=== PATIENT | female | born 1985 | race Caucasian/White ===

== ENCOUNTER → 2020-11-01 15:45 | Outpatient (BNVA) | payer OTHER, SELFPAY | PROVIDERS: PCP Pediatrics; Referring Provider Pediatrics; Visit Provider Obstetrics & Gynecology ==

== ENCOUNTER 2021-09-24 13:04 | Outpatient (REF) | payer OTHER, SELFPAY ==
[2021-09-24 14:27] LABS: Binax Internal Control QC Valid; Binax Lot number: 9864; Binax Now Covid-19 Ag Positive (Negative)
== END 2021-09-24 13:05 | disposition home or self-care (01) ==
LOC: HO.LAB 13:04
PROVIDERS: Visit Provider Internal Medicine
DX: Z20.822 Contact with and (suspected) exposure to COVID-19 (principal)
CPT/HCPCS: 36415; C9803

== ENCOUNTER → 2022-02-16 13:33 | Outpatient (BNVA) | payer OTHER, SELFPAY | PROVIDERS: Visit Provider Obstetrics & Gynecology | DX: Z01.419 Encounter for gynecological examination (general) (routine) without abnormal findings (principal) ==

== ENCOUNTER 2022-03-23 12:56 | Outpatient (REF) | payer OTHER, SELFPAY ==
--- NOTE | ~2022-03-23 | US_ITS ---
EXAMINATION: US PELVIS CLINICAL INFORMATION: Adnexal fullness. COMPARISON: Ultrasound 10/29/2019. TECHNIQUE: Ultrasound of the pelvis is performed using both transabdominal and transvaginal transducers along with Doppler. Transvaginal imaging is performed due to inadequate visualization transabdominally. FINDINGS: UTERUS: The uterus is anteverted, anteflexed and measures 8.1 cm in length, 3.2 cm in AP and 3.7 cm in transverse dimension. The double wall endometrial thickness is 0.4 cm. The uterus is smooth in contour and has normal myometrial echogenicity. There is solitary hyperechoic lesion in the fundus measuring 0.9 x 0.9 x 1.0 cm. Previously it measured 0.8 x 0.6 x 0.7 cm. There is minimal fluid in the cervix. ADNEXA: Both ovaries are visualized. There is normal color flow to the adnexa. There is no ovarian torsion. There is no pelvic ascites or fluid collection. Right ovary measures 2.1 x 1.1 x 2.4 cm and volume 2.9 mL. Left ovary measures 1.9 x 1.0 x 1.6 cm and volume 1.6 mL. US/US pelvic and transvaginal IMPRESSION: Solitary small fundal lesion likely fibroid, new since the last exam. The ovaries are unremarkable. There is minimal fluid in the cervix.
== END 2022-03-23 12:57 | disposition home or self-care (01) ==
LOC: HO.US 12:56
PROVIDERS: Visit Provider Obstetrics & Gynecology
DX: N94.9 Unspecified condition associated with female genital organs and menstrual cycle (principal)
CPT/HCPCS: 76830; 76856

== ENCOUNTER 2023-04-18 09:51 | Outpatient (REF) | payer OTHER, SELFPAY ==
[2023-04-18 18:07] LABS: CT PCR NOT DETECTED (Not Detect.); NG PCR NOT DETECTED (Not Detect.)
[2023-04-24 04:18] LABS: HPV mRNA E6/E7 rflx Not Detected (Not Detected)
== END 2023-04-18 09:52 | disposition home or self-care (01) ==
LOC: HO.LNP 09:51
PROVIDERS: PCP Pediatrics; Visit Provider Obstetrics & Gynecology
DX: Z01.419 Encounter for gynecological examination (general) (routine) without abnormal findings (principal); Z11.51 Encounter for screening for human papillomavirus (HPV); R10.2 Pelvic and perineal pain; R31.9 Hematuria, unspecified
CPT/HCPCS: 0353U; 81003; 87086; 87147; 87624; 88142

== ENCOUNTER 2023-04-18 09:51 | Outpatient (AMB) | payer OTHER, SELFPAY ==
[2023-04-18 10:11] VITALS: BP 122/74; BMI 31.7
--- NOTE | 2023-04-18 10:11 | A.OFFVIS_ITS ---
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 The patient is complaining of right pelvic pain associated urinary frequency and urgency. 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 Sexual orientation: Straight/Heterosexual Gender identity: Female Female Reproductive History Menstrual Age of Menarche: 11 Duration of menses: 6-7 days Date of last menstrual period: 04/11/23 control method: pills Total pregnancies: 0 Date of last pap smear: 08/28/18 (negative) Review of Systems Const All systems reviewed & are unremarkable except as noted in HPI and below Card Reports as per HPI Resp Reports as per HPI GI Reports as per HPI and Reports no additional complaints Reports as per HPI Physical Exam Vital Signs: Last Vital Signs BP 122/74 04/18/23 10:11 BMI result Body Mass Index 31.7 Const General: cooperative, healthy appearing and comfortable Chest Chest palpation & inspection: normal inspection of the chest and normal palpation of entire chest wall Breast/axilla inspection: normal inspection of the breasts and normal inspection of the axillae Breast/axilla palpation: normal palpation of the breasts, normal palpation of the axillae and no axillary lymphadenopathy Resp Effort & Inspection: normal respiratory effort Auscultation: clear to auscultation bilaterally Percussion: percussion normal Cardio Palpation: normal PMI Rate: regular rate Rhythm: regular rhythm Heart sounds: no murmurs and no rubs Peripheral pulses: Peripheral pulses 2+ throughout GI Inspection: Yes normal to inspection Palpation (GI): Soft to palpation, nontender, no guarding, not rigid and No hepatosplenomegaly present Percussion: Yes normal to percussion Auscultation: normal bowel sounds Rectal Exam - Female: deferred General: Yes bladder normal to palpation External Female Exam: No lesion Speculum Exam - Vagina: normal appearance of the vagina, normal palpation, normal vaginal discharge and not erythematous Speculum Exam - Cervix: normal appearance of the cervix and normal palpation Bimanual exam- vagina & uterus: normal bimanual exam, normal palpation, uterine size normal, bladder normal to palpation, consistency normal and normal palpation Bimanual Exam- Adnexa, other: normal adnexae, no masses and no tenderness Assessment & Plan Assessment & Plan (1) Well woman exam: Code(s): Z01.419 - Encounter for gynecological examination (general) (routine) without abnormal findings Plan: Cotesting done. Counseled the patient about the recommended dietary allowance of 1000 mg of Calcium & 600 IU of vitamin D. The patient was instructed to perform monthly self-breast exams and to schedule an annual exam in a year; All questions answered and the patient verbalized understanding. Instructed the patient to schedule annual exam in a year (2) Pelvic pain: Code(s): R10.2 - Pelvic and perineal pain Plan: Urine dip in the office showed microscopic hematuria and urine test done in the office was negative. GC and chlamydia taken and pelvic ultrasound ordered. Discussed with the patient the differential diagnosis of pelvic pain including but not limited to adnexal, uterine masses, pelvic infections (PID), GI the (Irritable bowel syndrome, diverticulitis, others), musculoskeletal, myofascial pain abdominal wall , adhesions, endometriosis, psychological and others causes. Will check results and treat accordingly. All questions answered, the patient verbalized understanding. Instructed the patient to schedule follow-up appointment in 2 weeks (3) Microscopic hematuria: Code(s): R31.29 - Other microscopic hematuria Plan: Urine dip showed microscopic hematuria, will send urine for culture and repeat urine dip in 2 weeks if persistent microscopic hematuria with a negative urine culture will proceed with CT scan of abdomen and pelvis and referral to Urology for further management. Instructions given the patient to schedule a 2 week follow-up urine dip appointment. All questions answered, the patient verbalized understanding Medications: Refilled levonorgestrel-ethinyl estrad 0.15-0.03 mg Take 1 tablet a day for 28 days Ninety day supply 1 tab PO DAILY 84 tabs 3RF 28 days Coding Level of Care Code Est Pt Prev Care 18-39y(17793) Diagnoses Well woman exam Z01.419 Pelvic pain R10.2 Microscopic hematuria R31.29
== END 2023-04-18 10:46 | disposition home or self-care (01) ==
LOC: HO.HWS 09:51
PROVIDERS: PCP Pediatrics; Visit Provider Obstetrics & Gynecology
DX: Z01.419 Encounter for gynecological examination (general) (routine) without abnormal findings (principal); R10.2 Pelvic and perineal pain; R31.29 Other microscopic hematuria; Z13.9 Encounter for screening, unspecified
CPT/HCPCS: 99395

== ENCOUNTER 2023-05-02 12:37 | Outpatient (REF) | payer OTHER, SELFPAY ==
--- NOTE | ~2023-05-02 | US_ITS ---
EXAMINATION: US PELVIS COMPLETE CLINICAL INFORMATION: Leiomyoma COMPARISON: Pelvic ultrasound 03/23/2022 TECHNIQUE: Transabdominal and transvaginal imaging was performed. FINDINGS: The uterus is of normal size and echogenicity measuring 9.0 x 3.2 x 4.5 cm. The endometrium measures 0.4 cm. Punctate subendometrial calcification possibly vascular in etiology. A 0.6 cm intramural myoma in the anterior right body of the uterus new from prior and a 0.8 cm intramural myoma in the left fundus of the uterus, slightly decreased from prior previously 1 cm. Trace fluid in the endocervical canal. Nabothian cysts in the cervix. Both ovaries are of normal size and echogenicity. The right measures 3.0 x 2.3 x 2.4 cm for a volume of 8.7 mL. The left measures 2.0 x 0.7 x 1.3 cm for a volume of 1.0 mL. There is no pelvic free fluid. US/US pelvic and transvaginal IMPRESSION: 1. Two small intramural myomas measuring up to 0.8 cm, one new from prior and one slightly decreased in size from prior. 2. Trace fluid in the endocervical canal. 3. Unremarkable sonographic appearance of the ovaries.
== END 2023-05-02 12:38 | disposition home or self-care (01) ==
LOC: HO.US 12:37
PROVIDERS: PCP Pediatrics; Visit Provider Obstetrics & Gynecology
DX: D25.9 Leiomyoma of uterus, unspecified (principal)
CPT/HCPCS: 76830; 76856

== ENCOUNTER 2023-05-10 09:48 | Outpatient (AMB) | payer OTHER, SELFPAY ==
[2023-05-10 09:55] VITALS: BP 118/70; BMI 31.7
--- NOTE | 2023-05-10 09:55 | MHC.OFFVIS ---
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 Urine culture grew 50-100 K GBS, the patient was prescribed Keflex. GC/chlamydia were negative The patient is on her menstrual cycle. Pelvic ultrasound showed the following: The uterus is of normal size and echogenicity measuring 9.0 x 3.2 x 4.5 cm. The endometrium measures 0.4 cm. Punctate subendometrial calcification possibly vascular in etiology. A 0.6 cm intramural myoma in the anterior right body of the uterus new from prior and a 0.8 cm intramural myoma in the left fundus of the uterus, slightly decreased from prior previously 1 cm. Trace fluid in the endocervical canal. Nabothian cysts in the cervix. Both ovaries are of normal size and echogenicity. The right measures 3.0 x 2.3 x 2.4 cm for a volume of 8.7 mL. The left measures 2.0 x 0.7 x 1.3 cm for a volume of 1.0 mL. There is no pelvic free fluid. 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 Sexual orientation: Straight/Heterosexual Gender identity: Female Female Reproductive History Menstrual Age of Menarche: 11 Date of last menstrual period: 05/09/23 control method: pills Date of last pap smear: 04/19/23 (negative) Review of Systems Const All systems reviewed & are unremarkable except as noted in HPI and below Reports as per HPI and Reports no additional complaints GI Reports no additional complaints Reports no additional complaints Physical Exam Vital Signs: Last Vital Signs BP 118/70 05/10/23 09:55 BMI result Body Mass Index 31.7 Assessment & Plan Assessment & Plan (1) UTI (urinary tract infection): Code(s): N39.0 - Urinary tract infection, site not specified Plan: The patient is on her menstrual cycle, will order Repeat UA with reflex urine culture. (2) Microscopic hematuria: Code(s): R31.29 - Other microscopic hematuria Plan: If urine culture is negative and microscopic hematuria is persistent will treat accordingly. Instructions given the patient to schedule a follow-up appointment in 2 (3) Uterine myoma: Code(s): D25.9 - Leiomyoma of uterus, unspecified Plan: Discussed with the patient the findings on pelvic ultrasound & the risk of myosarcoma; discussed with the patient the options of treatment including expectant management versus hysterectomy; the pros and cons, risks benefits of each approach were discussed with the patient including the fact that in cases of myosarcoma, surgical treatment can lead to early diagnosis and positively affects the prognosis; after further discussion, the patient decided to proceed with expectant management. Will repeat pelvic ultrasound periodically. Instructions given to patient to call in case any of the following occurs: pressure symptoms, abnormal uterine bleeding, pelvic pain; and to schedule a future office follow-up appointment for reassessment and to order a repeat ultrasound . All questions answered, the patient verbalized understanding and agreed with the plan . Orders: Orders UA CC w/rflx Micro + Cult Today R31.29 - Other microscopic hematuria Coding Level of Care Code Est Pt Level 3 (42591) Diagnoses UTI (urinary tract infection) N39.0 Microscopic hematuria R31.29 Uterine myoma D25.9
== END 2023-05-10 10:11 | disposition home or self-care (01) ==
PROVIDERS: PCP Pediatrics; Visit Provider Obstetrics & Gynecology
DX: N39.0 Urinary tract infection, site not specified (principal); R31.29 Other microscopic hematuria; D25.9 Leiomyoma of uterus, unspecified
CPT/HCPCS: 99213

== ENCOUNTER → 2023-05-10 09:48 | Outpatient (BNVA) | payer OTHER, SELFPAY | PROVIDERS: PCP Pediatrics; Visit Provider Obstetrics & Gynecology ==

== ENCOUNTER 2023-05-18 15:53 | Outpatient (REF) | payer OTHER, SELFPAY ==
[2023-05-18 17:48] LABS: Appearance Urine Cloudy; Color Urine Yellow; Glucose Urine UA Negative (Negative); Leukocyte Esterase Urine Trace (Negative); Nitrite Urine Negative (Negative); Specific Gravity - Urine >= 1.030 (1.005-1.025); UMIC TRIGGER UACC YES; Urine Blood Negative (Negative); Urine Ketones Trace mg/dL (Negative); Urine Protein Negative (Neg-Trace)
[2023-05-18 21:53] LABS: Bacteria Urine 4+ (None Seen); Calcium Oxalate Crystals Urine Present; Hyaline Casts Urine 0-2 /LPF (0-2); UACC Culture Trigger YES
== END 2023-05-18 15:54 | disposition home or self-care (01) ==
LOC: HO.LAB 15:53
PROVIDERS: Visit Provider Obstetrics & Gynecology
DX: N39.0 Urinary tract infection, site not specified (principal); R31.29 Other microscopic hematuria
CPT/HCPCS: 81001; 87086

== ENCOUNTER 2023-06-21 15:40 | Outpatient (REF) | payer OTHER, SELFPAY ==
--- NOTE | ~2023-06-21 | CT_ITS ---
EXAMINATION: CT ABDOMEN AND PELVIS WITHOUT AND WITH CONTRAST CLINICAL INFORMATION: Microscopic hematuria. COMPARISON: CT abdomen and pelvis dated 04/23/2017; report of the abdominal ultrasound dated 02/06/2012. TECHNIQUE: Multidetector volumetric imaging was performed of the abdomen and pelvis before and after the IV administration of 85 mL of Omnipaque 350 intravenous contrast. Sagittal and coronal reformatted images were obtained on the technologist's workstation. This CT examination was performed using dose optimization techniques as appropriate, variously including the following: *Automated exposure control *Adjustment of mA and/or kV according to patient size (this includes techniques or standardized protocols for targeted exams where dose is matched to indication/reason for exam; i.e. extremities or head) *Use of iterative reconstruction technique DLP: 779 mGy-cm FINDINGS: LUNG BASES: There is mild bibasilar dependent hypoaeration. LIVER, GALLBLADDER, AND BILIARY TREE: The liver is normal in size, shape, and attenuation. No focal hepatic lesion or biliary ductal dilatation is present. The gallbladder is surgically absent. PANCREAS: Unremarkable SPLEEN: Unremarkable ADRENAL GLANDS: Unremarkable KIDNEYS AND URETERS: The kidneys are normal in size, shape, and attenuation. No hydronephrosis, hydroureter, or calculi seen. No perinephric stranding. BLADDER: Unremarkable GASTROINTESTINAL TRACT: The small and large bowel are unremarkable. No obstruction, free intraperitoneal air or abscess is seen. There is no focal bowel wall thickening. There is no diverticulosis or diverticulitis. The vermiform appendix is not identified with certainty; however, there is no finding to suggest appendicitis. ABDOMINAL WALL: There is a small to moderate fat-containing umbilical hernia, with neck measuring 1.9 x 1.8 cm (9:282 at 11:59). LYMPH NODES: Normal VASCULAR: Unremarkable PELVIC VISCERA: The uterus is unremarkable. The right ovary contains a 2.4 cm benign simple appearing cyst, with postcontrast Hounsfield value of 8.1 units (8:67). This is a benign finding, which requires no imaging follow-up. OSSEOUS STRUCTURES: Unremarkable CT/CT abdomen pelvis wo/w IV con IMPRESSION: 1. No urinary mass, calculus or obstruction is seen. 2. No bowel obstruction, free intraperitoneal air or abscess is seen. There is no appendicitis or diverticulitis. 3. There is no abdominopelvic mass, ascites or lymphadenopathy. 4. The gallbladder is surgically absent. 5. Osseous structures are unremarkable. Fleischner guidelines were followed.
[2023-06-21] MEDS: iohexoL 350 MG/ML 100 ML INFUS..BTL IV (16:22)
== END 2023-06-21 15:41 | disposition home or self-care (01) ==
LOC: HO.CT 15:40
PROVIDERS: PCP Pediatrics; Visit Provider Obstetrics & Gynecology
DX: R31.29 Other microscopic hematuria (principal)
CPT/HCPCS: 74178; Q9967

== ENCOUNTER 2023-06-27 12:28 | Outpatient (AMB) | payer OTHER, SELFPAY ==
--- NOTE | 2023-06-27 12:47 | A.OFFVIS_ITS ---
Intake Vital Signs 06/27/23 12:49 Height 5 ft 3 in Weight 178 lb 9.191 oz BMI 31.6 BP 110/62 Intake Visit Reasons: Lab Follow up/CT Allergies From PERCOCET Adverse Reaction (Intermediate, Uncoded 05/10/23 09:56) VOMITING HPI HPI Comments History of Present Illness Details Presenting for follow-up microscopic hematuria. Repeat urinalysis was positive for 6-10 RBCs, urine culture was negative. CT scan of abdomen pelvis was done and showed the following: IMPRESSION: 1. No urinary mass, calculus or obstruct ion is seen. 2. No bowel obstruction, free intraperit gimenez air or abscess is seen. There is no appendicitis or diverticulitis. 3. There is no abdominopelvic mass, asci kajal or lymphadenopathy. 4. The gallbladder is surgically absent. 5. Osseous structures are unremarkable. 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 Sexual orientation: Straight/Heterosexual Gender identity: Female Female Reproductive History Menstrual Age of Menarche: 11 Date of last menstrual period: 06/09/23 Review of Systems Const All systems reviewed & are unremarkable except as noted in HPI and below Reports as per HPI and Reports no additional complaints GI Reports no additional complaints Reports no additional complaints Physical Exam Vital Signs: Last Vital Signs BP 110/62 06/27/23 12:49 BMI result Body Mass Index 31.6 Assessment & Plan Assessment & Plan (1) Microscopic hematuria: Code(s): R31.29 - Other microscopic hematuria Plan: Discussed with the patient the results of her microscopic hematuria, with negative urine culture and no pathological finding on CT scan of abdomen pelvis. Urology referral scheduled.. All questions answered, the patient verbalized understanding Coding Level of Care Code Est Pt Level 3 (77467) Diagnoses Microscopic hematuria R31.29
[2023-06-27 12:49] VITALS: BP 110/62; BMI 31.6
== END 2023-06-27 15:19 | disposition home or self-care (01) ==
PROVIDERS: PCP Pediatrics; Visit Provider Obstetrics & Gynecology
DX: R31.29 Other microscopic hematuria (principal)
CPT/HCPCS: 99213

== ENCOUNTER → 2023-06-27 12:28 | Outpatient (BNVA) | payer OTHER, SELFPAY | PROVIDERS: PCP Pediatrics; Visit Provider Obstetrics & Gynecology ==

== ENCOUNTER 2023-07-03 15:35 | Outpatient (AMB) | payer OTHER, SELFPAY ==
--- NOTE | 2023-07-03 16:00 | MHC.OFFVIS ---
Intake Intake Visit Reasons: Microscopic hematuria Intake Note: New Patient presents for initial visit for micro hematuria Urology Medications: none Blood Thinner: none Smoker: never Repeat Chief Required: No Accompanied by: Self / Same As Patient Allergies From PERCOCET Adverse Reaction (Intermediate, Uncoded 07/03/23 16:01) VOMITING HPI HPI Comments History of Present Illness Details Carmella is a very pleasant 37-year-old female patient of . She has a past medical history of endometriosis, thyroid disease, and asthma. She presents to the office today as a new patient for microscopic hematuria. In discussion with the patient today she reports to be doing and feeling well. She reports having follow-up with her mortgage counselor for her annual visit. She reports noting right-sided pelvic pain with urinary urgency and frequency in discussed these symptoms with mortgage counselor. It appears patient was noted to have a urinary tract infection and treated however continued with microscopic hematuria. In office urinalysis today within normal limits. She denies any previous smoking history or chemical exposure. She reports continuing to feel urinary urgency, urinary frequency, urinary hesitancy, and bladder pressure. CT of the abdomen was ordered and completed. These results were reviewed with the patient today. The kidneys are normal in size, shape, and attenuation. No hydronephrosis, hydroureter, or calculi seen. No perinephric stranding. The bladder is unremarkable. Discussed at length potential causes for lower urinary tract symptoms. Discussed obtaining microgen for further assessment evaluation and trial of oxybutynin p.r.n. for bladder spasms. Discussed possible near future in office cystoscopy if symptoms persist and/or worsen. Discussed at length bladder triggers/irritants. She otherwise denies incontinence, nocturia, hematuria, dysuria, foul smelling urine, changes to urinary stream, flank pain, fever, and or chills. 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 Sexual orientation: Straight/Heterosexual Gender identity: Female Female Reproductive History Menstrual Age of Menarche: 11 Review of Systems Const Reports as per HPI Eyes Reports no additional complaints ENT Reports no additional complaints Card Reports no additional complaints Resp Reports as per HPI GI Reports no additional complaints Reports as per HPI Musc Reports no additional complaints Neuro Reports no additional complaints Psych Reports no additional complaints Endo Reports no additional complaints Physical Exam Const General: cooperative, healthy appearing, comfortable, no acute distress, well developed, alert and awake Orientation/consciousness: patient oriented x3 Limitations: no limitations HEENT Head: Yes normal to inspection, Yes normocephalic and Yes atraumatic Ears: hearing grossly normal bilaterally Eyes General: appearance normal, both eyes and all related structures Neck Neck: Yes normal visual inspection and Yes trachea midline Chest Chest palpation & inspection: normal inspection of the chest Resp Effort & Inspection: normal respiratory effort and able to speak in complete sentences Cardio Rate: regular rate GI Inspection: Yes normal to inspection General: Yes no CVA tenderness Back/Spine/Pelvis Back: no CVA tenderness Skin General skin exam: no rashes or lesions noted Neuro General: patient oriented x3 Extrem General: Yes normal to inspection Psych Appearance: grossly normal and well kempt Mental Status: mental status grossly normal Speech and movement: Normal speech and movement present and Clear speech present Affect: normal affect Attitude: cooperative Thought process: Normal thought process present Thought content: Normal thought content present Insight: Good insight present (Psych) Judgement: Good judgement present (Psych) Results AMB Urinalysis, Automated UA Leukoctes 0 Aleshia/uL Last Edit by [employer] on 07/03/23 16:19 UA Nitrite Negative Last Edit by [employer] on 07/03/23 16:19 UA Urobilinogen 0.2 mg/dL Last Edit by The [employer]avor on 07/03/23 16:19 UA Protein 0 mg/dL Last Edit by [employer] on 07/03/23 16:19 UA pH 6.0 Last Edit by The [employer] on 07/03/23 16:19 UA Blood 0 Sudeep/uL Last Edit by Hossein Louannjaxson on 07/03/23 16:19 UA Specific [place] 1.010 Last Edit by Hossein Wilkinson on 07/03/23 16:19 UA Ketone Negative Last Edit by Hossein Wilkinson on 07/03/23 16:19 UA Bilirubin 0 mg/dL Last Edit by Hossein Wilkinson on 07/03/23 16:19 UA Glucose 0 mg/dL Last Edit by Hossein Wilkinson on 07/03/23 16:19 Results Reviewed Results Reviewed: Laboratory Last Values Urine pH (Auto) 6.0 07/03/23 16:02 Specific [place] (Auto) 1.010 07/03/23 16:02 Urine Protein (Auto) 0 mg/dL 07/03/23 16:02 Glucose (UA)(Auto) 0 mg/dL 07/03/23 16:02 Urine Ketones (Auto) Negative 07/03/23 16:02 Urine Blood (Auto) 0 Sudeep/uL 07/03/23 16:02 Urine Nitrite (Auto) Negative 07/03/23 16:02 Urine Bilirubin (Auto) 0 mg/dL 07/03/23 16:02 Urine Urobilinogen (Auto) 0.2 mg/dL 07/03/23 16:02 Leukocyte Esterase (Auto) 0 Aleshia/uL 07/03/23 16:02 Date of Service: 06/21/23 EXAMINATION: CT ABDOMEN AND PELVIS WITHOUT AND WITH CONTRAST FINDINGS: LUNG BASES: There is mild bibasilar dependent hypoaeration. LIVER, GALLBLADDER, AND BILIARY TREE: The liver is normal in size, shape, and attenuation. No focal hepatic lesion or biliary ductal dilatation is present. The gallbladder is surgically absent. PANCREAS: Unremarkable SPLEEN: Unremarkable ADRENAL GLANDS: Unremarkable KIDNEYS AND URETERS: The kidneys are normal in size, shape, and attenuation. No hydronephrosis, hydroureter, or calculi seen. No perinephric stranding. BLADDER: Unremarkable GASTROINTESTINAL TRACT: The small and large bowel are unremarkable. No obstruction, free intraperitoneal air or abscess is seen. There is no focal bowel wall thickening. There is no diverticulosis or diverticulitis. The vermiform appendix is not identified with certainty; however, there is no finding to suggest appendicitis. ABDOMINAL WALL: There is a small to moderate fat-containing umbilical hernia, with neck measuring 1.9 x 1.8 cm (9:282 at 11:59). LYMPH NODES: Normal VASCULAR: Unremarkable PELVIC VISCERA: The uterus is unremarkable. The right ovary contains a 2.4 cm benign simple appearing cyst, with postcontrast Hounsfield value of 8.1 units (8:67). This is a benign finding, which requires no imaging follow-up. OSSEOUS STRUCTURES: Unremarkable IMPRESSION: 1. No urinary mass, calculus or obstruction is seen. 2. No bowel obstruction, free intraperitoneal air or abscess is seen. There is no appendicitis or diverticulitis. 3. There is no abdominopelvic mass, ascites or lymphadenopathy. 4. The gallbladder is surgically absent. 5. Osseous structures are unremarkable. Assessment & Plan Assessment & Plan (1) Lower urinary tract symptoms: Code(s): R39.9 - Unspecified symptoms and signs involving the genitourinary system (2) UTI (urinary tract infection): Code(s): N39.0 - Urinary tract infection, site not specified (3) Microscopic hematuria: Code(s): R31.29 - Other microscopic hematuria Plan In office urinalysis results reviewed with the patient today; will send for microgen testing Patient reporting lower urinary tract symptoms discussed at length importance of drinking plenty of water daily. Discussed at length potential causes for lower urinary tract symptoms. Discussed possible near future in office cystoscopy if symptoms persist and/or worsen. Start oxybutynin p.r.n. as discussed and prescribed. Recent CT imaging results reviewed with the patient today; as noted above. Discussed bladder triggers/irritants. Follow-up in 2-4 weeks; if not sooner with any issues, concerns, and or questions. Orders: Orders AMB Urinalysis Automated Today Z13.9 - Encounter for screening, unspecified Medications: New oxybutynin chloride 5 mg PO Q8H 10 days PRN 20 tabs 1RF bladder spasms R33.9 - Retention of urine, unspecified, R39.15 - Urgency of urination Patient Instructions: The patient had an opportunity to ask questions regarding the treatment plan. All questions were answered. Physical exam, labs, and imaging were discussed and reviewed in detail. As well as risks, benefits, and discussion of treatment choices. No major barriers to understanding were identified. The patient expressed understanding and agreement with the above treatment plan. The patient was made aware they should contact our office by phone for worsening of their current condition, the appearance of new symptoms, or with any questions or concerns. Compliance is encouraged with any medications and follow up testing that is ordered. It is a privilege to be allowed the opportunity to participate in? your urological care.? Again, if you have any questions or concerns If you have any questions or concerns please do not hesitate to contact me. The office is [phone]. This note is constructed using voice recognition software. While every effort has been made to ensure accuracy care center manager errors may have been included. Yours sincerely, JOSEPH Branham Coding Level of Care Code New Pt Level 4 (08218) Diagnoses Lower urinary tract symptoms R39.9 UTI (urinary tract infection) N39.0 Microscopic hematuria R31.29
== END 2023-07-03 16:31 | disposition home or self-care (01) ==
PROVIDERS: PCP Pediatrics; Visit Provider Nurse Practitioner Family
DX: R39.9 Unspecified symptoms and signs involving the genitourinary system (principal); N39.0 Urinary tract infection, site not specified; R31.29 Other microscopic hematuria
CPT/HCPCS: 99204

== ENCOUNTER → 2023-07-03 15:35 | Outpatient (BNVA) | payer OTHER, SELFPAY | PROVIDERS: PCP Pediatrics; Visit Provider Nurse Practitioner Family | DX: R31.29 Other microscopic hematuria (principal); R39.9 Unspecified symptoms and signs involving the genitourinary system; N39.0 Urinary tract infection, site not specified | CPT/HCPCS: 81003 ==

== ENCOUNTER 2023-07-26 15:35 | Outpatient (AMB) | payer OTHER, SELFPAY ==
--- NOTE | 2023-07-26 15:44 | A.OFFVIS_ITS ---
Intake Intake Visit Reasons: 2w follow up Intake Note: Patient presents for follow up visit for recurrent uti Urology Medications: none Blood Thinner: none Smoker: never Media Account Executive Required: No Accompanied by: Self / Same As Patient Allergies From PERCOCET Adverse Reaction (Intermediate, Uncoded 07/26/23 16:35) VOMITING Medication List - Last Reconciled 07/26/23 by JOSEPH Branham levonorgestrel-ethinyl estrad 0.15-0.03 mg 1 tab PO DAILY 28 days metronidazole 500 mg PO BID 14 days oxybutynin chloride 5 mg PO Q8H PRN 10 days tadalafil (Cialis) 5 mg PO DAILY 90 days HPI HPI Comments 2 History of Present Illness Details Carmella is a very pleasant 37-year-old female patient of . She has a past medical history of endometriosis, thyroid disease, and asthma. She presents to the office today for follow-up. Of note, patient was seen approximately 2 weeks ago at which time her urine was sent for microgen testing. Patient was treated with Flagyl and has since completed treatment. In discussion with the patient today she continues to report bladder pressure, urinary urgency and urinary frequency. She reports having taken oxybutynin as needed for bladder spasms however did not find this helpful. In office urinalysis results reviewed with the patient today. Microscopic hematuria noted otherwise negative leukocytes negative nitrates. Discussed at length potential symptoms related to post UTI syndrome versus interstitial cystitis. Discuss trial of low-dose Cialis for bladder stability. Previous workup has included a CT of the abdomen and pelvis noting the kidneys are normal in size, shape, and attenuation. No hydronephrosis, hydroureter, or calculi seen. No perinephric stranding. The bladder is unremarkable. Discussed at length potential causes for lower urinary tract symptoms. Discussed at length bladder triggers/irritants. She otherwise denies incontinence, nocturia, hematuria, dysuria, foul smelling urine, changes to urinary stream, flank pain, fever, and or chills. Discussed at length risks and benefits of in office cystoscopy for further assessment evaluation. Patient with a history of endometriosis in her appendix unsure if question in the bladder. PVR 0 mL. 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 Sexual orientation: Straight/Heterosexual Gender identity: Female Female Reproductive History Menstrual Age of Menarche: 11 Review of Systems Const Reports as per HPI Eyes Reports no additional complaints ENT Reports no additional complaints Card Reports no additional complaints Resp Reports as per HPI GI Reports no additional complaints Reports as per HPI Musc Reports no additional complaints Neuro Reports no additional complaints Psych Reports no additional complaints Endo Reports no additional complaints Physical Exam Const General: cooperative, healthy appearing, comfortable, no acute distress, well developed, alert and awake Orientation/consciousness: patient oriented x3 Limitations: no limitations HEENT Head: Yes normal to inspection, Yes normocephalic and Yes atraumatic Ears: hearing grossly normal bilaterally Eyes General: appearance normal, both eyes and all related structures Neck Neck: Yes normal visual inspection and Yes trachea midline Chest Chest palpation & inspection: normal inspection of the chest Resp Effort & Inspection: normal respiratory effort and able to speak in complete sentences Cardio Rate: regular rate GI Inspection: Yes normal to inspection General: Yes no CVA tenderness Back/Spine/Pelvis Back: no CVA tenderness Skin General skin exam: no rashes or lesions noted Neuro General: patient oriented x3 Extrem General: Yes normal to inspection Psych Appearance: grossly normal and well kempt Mental Status: mental status grossly normal Speech and movement: Normal speech and movement present and Clear speech present Affect: normal affect Attitude: cooperative Thought process: Normal thought process present Thought content: Normal thought content present Insight: Good insight present (Psych) Judgement: Good judgement present (Psych) Office Procedures Post Void Residual Post Residual Void Post Void Residual (PVR): 0 [id number] Void Residual by ultrasound Results AMB Urinalysis, Automated UA Leukoctes 0 Aleshia/uL Last Edit by Hossein Wilkinson on 07/26/23 16:02 UA Nitrite Negative Last Edit by Hossein Wilkinson on 07/26/23 16:02 UA Urobilinogen 0.2 mg/dL Last Edit by Hossein Wilkinson on 07/26/23 16:02 UA Protein 0 mg/dL Last Edit by Hossein Wilkinson on 07/26/23 16:02 UA pH 6.0 Last Edit by Hossein Wilkinson on 07/26/23 16:02 UA Blood 10 Sudeep/uL Last Edit by Hossein Wilkinson on 07/26/23 16:02 UA Specific [place] 1.030 Last Edit by Hossein Wilkinson on 07/26/23 16:02 UA Ketone Negative Last Edit by Hossein Wilkinson on 07/26/23 16:02 UA Bilirubin 0 mg/dL Last Edit by Hossein Wilkinson on 07/26/23 16:02 UA Glucose 0 mg/dL Last Edit by Hossein Wilkinson on 07/26/23 16:02 Results Reviewed Results Reviewed: Laboratory Last Values Urine pH (Auto) 6.0 07/26/23 15:49 Specific [place] (Auto) 1.030 07/26/23 15:49 Urine Protein (Auto) 0 mg/dL 07/26/23 15:49 Glucose (UA)(Auto) 0 mg/dL 07/26/23 15:49 Urine Ketones (Auto) Negative 07/26/23 15:49 Urine Blood (Auto) 10 Sudeep/uL 07/26/23 15:49 Urine Nitrite (Auto) Negative 07/26/23 15:49 Urine Bilirubin (Auto) 0 mg/dL 07/26/23 15:49 Urine Urobilinogen (Auto) 0.2 mg/dL 07/26/23 15:49 Leukocyte Esterase (Auto) 0 Aleshia/uL 07/26/23 15:49 Assessment & Plan Assessment & Plan (1) Lower urinary tract symptoms: Code(s): R39.9 - Unspecified symptoms and signs involving the genitourinary system (2) Microscopic hematuria: Code(s): R31.29 - Other microscopic hematuria (3) Sensation of pressure in bladder area: Code(s): R39.89 - Other symptoms and signs involving the genitourinary system Plan In office urinalysis results reviewed with the patient today. PVR 0 mL. Discussed bladder triggers/irritants. Start 5 mg Cialis daily as discussed and prescribed. Discussed at length potential causes for lower urinary tract symptoms. Reassurance provided. Discussed, educated, encouraged on the importance of drinking plenty of water daily. Will schedule for in office cystoscopy for further assessment evaluation. Orders: Orders AMB Urinalysis Automated Today Z13.9 - Encounter for screening, unspecified AMB Post Void Residual by ultrasound Today N39.0 - Urinary tract infection, site not specified Medications: New tadalafil (Cialis) [id number] [facility] [id number] Member [id number] 5 mg PO DAILY 90 days 90 tabs 0RF Patient Instructions: The patient had an opportunity to ask questions regarding the treatment plan. All questions were answered. Physical exam, labs, and imaging were discussed and reviewed in detail. As well as risks, benefits, and discussion of treatment choices. No major barriers to understanding were identified. The patient expressed understanding and agreement with the above treatment plan. The patient was made aware they should contact our office by phone for worsening of their current condition, the appearance of new symptoms, or with any questions or concerns. Compliance is encouraged with any medications and follow up testing that is ordered. It is a privilege to be allowed the opportunity to participate in? your urological care.? Again, if you have any questions or concerns If you have any questions or concerns please do not hesitate to contact me. The office is [phone]. This note is constructed using voice recognition software. While every effort has been made to ensure accuracy student financial services counselor errors may have been included. Yours sincerely, JOSEPH Branham Coding Level of Care Code Est Pt Level 4 (66831) Diagnoses Lower urinary tract symptoms R39.9 Microscopic hematuria R31.29 Sensation of pressure in bladder area R39.89 CPT Codes Post Residual Void - PVR CPT Code: 44074-[id number] Void Residual by ultrasound ([id number])
== END 2023-07-26 16:19 | disposition home or self-care (01) ==
PROVIDERS: PCP Pediatrics; Visit Provider Nurse Practitioner Family
DX: R39.9 Unspecified symptoms and signs involving the genitourinary system (principal); R31.29 Other microscopic hematuria; R39.89 Other symptoms and signs involving the genitourinary system; Z13.9 Encounter for screening, unspecified
CPT/HCPCS: 99214

== ENCOUNTER → 2023-07-26 15:35 | Outpatient (BNVA) | payer OTHER, SELFPAY | PROVIDERS: PCP Pediatrics; Visit Provider Nurse Practitioner Family | DX: N39.0 Urinary tract infection, site not specified (principal); R31.29 Other microscopic hematuria | CPT/HCPCS: 51798; 81003 ==

== ENCOUNTER 2023-09-07 14:22 | Outpatient (AMB) | payer OTHER, SELFPAY ==
--- NOTE | 2023-09-07 14:25 | MHC.OFFVIS ---
Intake Intake Visit Reasons: cysto Allergies From PERCOCET Adverse Reaction (Intermediate, Uncoded 07/26/23 16:35) VOMITING HPI HPI Comments History of Present Illness Details Carmella is a very pleasant 37-year-old female patient of . She has a past medical history of endometriosis, thyroid disease, and asthma. She presents to the office today for follow-up. She has been followed by BENJAMIN Fabian for irritative voiding symptoms. She is here for office cystoscopy. I have review CTAP w/wo IV contrast--Urinary tract within normal limits. 09/07/23--Cystoscopy findings: WNL, no suspicious bladder lesions visualized Plan - FU with HOLLOW HANDLE BENCH WORKER in 3 months [facility] Medical History Endometriosis Thyroid disease Asthma Surgical History History of ovarian cystectomy History of cholecystectomy History of appendectomy History of tonsillectomy H/O wrist surgery History of knee surgery Family History Mother Prediabetes Father Diabetes Social History Household Members: Family Housing: House Alcohol intake: current Alcohol intake frequency: holidays/special occasions only Patient Tobacco Use Status: Never used Tobacco service: No Current occupational status: 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 Sexual orientation: Straight/Heterosexual Gender identity: Female Female Reproductive History Menstrual Age of Menarche: 11 Review of Systems Const All systems reviewed & are unremarkable except as noted in HPI and below Reports no additional complaints Eyes Reports no additional complaints ENT Reports no additional complaints Card Denies dyspnea Resp Denies cough and Denies dyspnea GI Reports no additional complaints Reports no additional complaints Musc Reports no additional complaints Skin/Breast Denies rash and Denies unusual bruising Neuro Reports no additional complaints Psych Reports no additional complaints Endo Reports no additional complaints Justin/Lymph Reports no additional complaints Aller/Immun Reports no additional complaints Office Procedures Cystoscopy Consent Discussed risk and benefit or proposed procedure with the patient. Information consent for procedure given to the patient. Discussed technical aspects, risks, benefits and alternatives in full. Addressed all of the patient's questions and concerns regarding the procedure. The patient demonstrated knowledge and understanding. They wish to proceed with this procedure. Preparation The patient was prepped in the usual manner. A cook italian style food was present and in the room. Genitalia was prepped with betadine solution in a sterile manner. Lidocaine Jelly 2% was placed into the urethra and 16Fr flexible Olympus cystoscope was inserted into the meatus after adequate lubrication. Procedure Time out per protocol performed. Bladder Inspection Bladder Inspection: The bladder was inspected in its entirety with utilization retroflexion displaying: Tumor(s): none visualized Trabeculation: N/A Mucosal Erthema: N/A Orifices: normal shape and position Urethra: normal Cystoscopy findings: WNL, no suspicious bladder lesions visualized [id number] DISPOSABLE SCOPE URO-G FLEXIBLE SCOPE Procedure code (CPT) selection complete Office Meds lidocaine HCl 2 % mucosal jelly in applicator Performing Provider: Buzz Dasilva MD [place] [facility] Administered by: Racquel Frankel RN on 09/07/23 14:37 Dose Route Admin Location Dispensed Lot Number Expiration Date [facility] 10 mL intra-urethral 20 mL naproxen 500 mg tablet Performing Provider: Buzz Dasilva MD Performing [place] [facility] Administered by: Racquel Frankel RN on 09/07/23 14:37 Dose Route Admin Location Dispensed Lot Number Expiration Date [facility] 500 mg PO 1 tab ciprofloxacin HCl 500 mg tablet Performing Provider: Buzz Dasilva MD Performing [place] [facility] Administered by: Racquel Frankel RN on 09/07/23 14:37 Dose Route Admin Location Dispensed Lot Number Expiration Date [facility] 500 mg PO 1 tab Results AMB Urinalysis, Automated UA Leukoctes 0 Aleshia/uL Last Edit by Kendall Edward on 09/07/23 14:39 UA Nitrite Negative Last Edit by Kendall Edward on 09/07/23 14:39 UA Urobilinogen 0.2 mg/dL Last Edit by Kendall Edward on 09/07/23 14:39 UA Protein 15 mg/dL Last Edit by Kendall Edward on 09/07/23 14:39 UA pH 5.5 Last Edit by Kendall Edward on 09/07/23 14:39 UA Blood 0 Sudeep/uL Last Edit by Kendall Edward on 09/07/23 14:39 UA Specific [place] 1.030 Last Edit by Kendall Edward on 09/07/23 14:39 UA Ketone Negative Last Edit by Kendall Edward on 09/07/23 14:39 UA Bilirubin 0 mg/dL Last Edit by Kendall Edward on 09/07/23 14:39 UA Glucose 0 mg/dL Last Edit by Kendall Edward on 09/07/23 14:39 Results Reviewed Results Reviewed: Laboratory Last Values Urine pH (Auto) 5.5 09/07/23 14:37 Specific [place] (Auto) 1.030 09/07/23 14:37 Urine Protein (Auto) 15 mg/dL 09/07/23 14:37 Glucose (UA)(Auto) 0 mg/dL 09/07/23 14:37 Urine Ketones (Auto) Negative 09/07/23 14:37 Urine Blood (Auto) 0 Sudeep/uL 09/07/23 14:37 Urine Nitrite (Auto) Negative 09/07/23 14:37 Urine Bilirubin (Auto) 0 mg/dL 09/07/23 14:37 Urine Urobilinogen (Auto) 0.2 mg/dL 09/07/23 14:37 Leukocyte Esterase (Auto) 0 Aleshia/uL 09/07/23 14:37 Date of Service: 06/21/23 EXAMINATION: CT ABDOMEN AND PELVIS WITHOUT AND WITH CONTRAST CLINICAL INFORMATION: Microscopic hematuria. COMPARISON: CT abdomen and pelvis dated 04/23/2017; report of the abdominal ultrasound dated 02/06/2012. FINDINGS: LUNG BASES: There is mild bibasilar dependent hypoaeration. LIVER, GALLBLADDER, AND BILIARY TREE: The liver is normal in size, shape, and attenuation. No focal hepatic lesion or biliary ductal dilatation is present. The gallbladder is surgically absent. PANCREAS: Unremarkable SPLEEN: Unremarkable ADRENAL GLANDS: Unremarkable KIDNEYS AND URETERS: The kidneys are normal in size, shape, and attenuation. No hydronephrosis, hydroureter, or calculi seen. No perinephric stranding. BLADDER: Unremarkable GASTROINTESTINAL TRACT: The small and large bowel are unremarkable. No obstruction, free intraperitoneal air or abscess is seen. There is no focal bowel wall thickening. There is no diverticulosis or diverticulitis. The vermiform appendix is not identified with certainty; however, there is no finding to suggest appendicitis. ABDOMINAL WALL: There is a small to moderate fat-containing umbilical hernia, with neck measuring 1.9 x 1.8 cm (9:282 at 11:59). LYMPH NODES: Normal VASCULAR: Unremarkable PELVIC VISCERA: The uterus is unremarkable. The right ovary contains a 2.4 cm benign simple appearing cyst, with postcontrast Hounsfield value of 8.1 units (8:67). This is a benign finding, which requires no imaging follow-up. OSSEOUS STRUCTURES: Unremarkable IMPRESSION: 1. No urinary mass, calculus or obstruction is seen. 2. No bowel obstruction, free intraperitoneal air or abscess is seen. There is no appendicitis or diverticulitis. 3. There is no abdominopelvic mass, ascites or lymphadenopathy. 4. The gallbladder is surgically absent. 5. Osseous structures are unremarkable. Assessment & Plan Assessment & Plan (1) Lower urinary tract symptoms: Code(s): R39.9 - Unspecified symptoms and signs involving the genitourinary system (2) Microscopic hematuria: Code(s): R31.29 - Other microscopic hematuria (3) Sensation of pressure in bladder area: Code(s): R39.89 - Other symptoms and signs involving the genitourinary system Plan FU with HOLLOW HANDLE BENCH WORKER in 3 months Orders: Orders AMB Urinalysis Automated 09/07/23 Z13.9 - Encounter for screening, unspecified AMB Cystoscopy 09/07/23 R31.29 - Other microscopic hematuria, R39.89 - Other symptoms and signs involving the genitourinary system Patient Instructions: The patient had an opportunity to ask questions regarding treatment plan. All questions were answered. Imaging, Laboratory studies and physical exam results were discussed and reviewed in detail. No major barriers to understanding were identified. The patient expressed understanding and agreement with the above treatment plan. The patient is aware they should contact our office by phone for worsening of their current condition or the appearance of new symptoms. Compliance is encouraged with any medications and followup testing that is ordered. It is a privilege to be allowed the opportunity to participate in the urologic care of your patient. If you have any questions or concerns regarding treatment for the above conditions please do not hesitate to contact me. The office telephone contact is [phone]. This note is constructed in part using voice recognition software. While every effort has been made to ensure accuracy group counselor errors may have been included. Yours sincerely, Buzz Dasilva MD Coding Level of Care Code Procedure Only Diagnoses Lower urinary tract symptoms R39.9 Microscopic hematuria R31.29 Sensation of pressure in bladder area R39.89 CPT Codes Cystoscopy - CPT: 21892-[id number] ([id number])
== END 2023-09-07 15:12 | disposition home or self-care (01) ==
PROVIDERS: PCP Pediatrics; Visit Provider Urology
DX: R31.29 Other microscopic hematuria (principal); R39.89 Other symptoms and signs involving the genitourinary system; Z13.9 Encounter for screening, unspecified
CPT/HCPCS: 52000

== ENCOUNTER → 2023-09-07 14:22 | Outpatient (BNVA) | payer OTHER, SELFPAY | PROVIDERS: PCP Pediatrics; Visit Provider Urology | DX: R31.29 Other microscopic hematuria (principal); R39.89 Other symptoms and signs involving the genitourinary system | CPT/HCPCS: 52000; 81003 ==

== ENCOUNTER 2023-11-06 15:34 | Outpatient (AMB) | payer OTHER, SELFPAY ==
--- NOTE | 2023-11-06 15:35 | A.OFFVIS_ITS ---
Intake Intake Visit Reasons: 2m follow up Intake Note: Patient presents for follow up for microscopic hematuria and lower urinary tract symptoms Urology Medications: cialis Blood thinner: none PVR: 0 Patient states that she is able to urinates normal, but after she urinates she feels the urgency to urinates again [employer] Manager Required: No Accompanied by: Self / Same As Patient Allergies From PERCOCET Adverse Reaction (Intermediate, Uncoded 11/06/23 19:47) VOMITING Medication List - Last Reconciled 11/06/23 by JOSEPH Branham levonorgestrel-ethinyl estrad 0.15-0.03 mg 1 tab PO DAILY 28 days solifenacin (Vesicare) 5 mg PO DAILY 30 days tadalafil (Cialis) 5 mg PO DAILY 90 days HPI HPI Comments History of Present Illness Details Carmella is a very pleasant 37-year-old female patient of . She has a past medical history of endometriosis, thyroid disease, and asthma. She presents to the office today for follow up of her irritative voiding symptoms. Of note, patient underwent an office cystoscopy with Dr. Gureo sewell on 11/08/2022 at which time cystoscopy findings within normal limits, no suspicious bladder lesions were visualized. Previous workup has included a CT urogram noting urinary tract within normal limits. In discussion with the patient today she reports noting significant improvement in urinary pressure she had been experiencing with 5 mg of Cialis daily. However she does continue to report episodes of urinary frequency and urgency. She has previously trialed oxybutynin with no improvement. When asked she denies incontinence, nocturia, hematuria, dysuria, foul smelling urine, changes to urinary stream, flank pain, fever, and or chills. Discussed at length potential causes for lower urinary tr act symptoms patient is experiencing. In office urinalysis results reviewed with the patient today. PVR 0 mL. 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 occupational status: 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 Sexual orientation: Straight/Heterosexual Gender identity: Female Female Reproductive History Menstrual Age of Menarche: 11 Review of Systems Const Reports as per HPI Eyes Reports no additional complaints ENT Reports no additional complaints Card Reports no additional complaints Resp Reports as per HPI GI Reports no additional complaints Reports as per HPI Musc Reports no additional complaints Neuro Reports no additional complaints Psych Reports no additional complaints Endo Reports no additional complaints Physical Exam Const General: cooperative, healthy appearing, comfortable, no acute distress, well developed, alert and awake Orientation/consciousness: patient oriented x3 Limitations: no limitations HEENT Head: Yes normal to inspection, Yes normocephalic and Yes atraumatic Ears: hearing grossly normal bilaterally Eyes General: appearance normal, both eyes and all related structures Neck Neck: Yes normal visual inspection and Yes trachea midline Chest Chest palpation & inspection: normal inspection of the chest Resp Effort & Inspection: normal respiratory effort and able to speak in complete sentences Cardio Rate: regular rate GI Inspection: Yes normal to inspection General: Yes no CVA tenderness Back/Spine/Pelvis Back: no CVA tenderness Skin General skin exam: no rashes or lesions noted Neuro General: patient oriented x3 Extrem General: Yes normal to inspection Psych Appearance: grossly normal and well kempt Mental Status: mental status grossly normal Speech and movement: Normal speech and movement present and Clear speech present Affect: normal affect Attitude: cooperative Thought process: Normal thought process present Thought content: Normal thought content present Insight: Good insight present (Psych) Judgement: Good judgement present (Psych) Office Procedures Post Void Residual Post Residual Void Post Void Residual (PVR): 0 [id number] Void Residual by ultrasound Results AMB Urinalysis, Automated UA Leukoctes 0 Aleshia/uL Last Edit by Chelsea Mejía CMA on 11/06/23 15 :55 UA Nitrite Negative Last Edit by Chelsea Mejía CMA on 11/06/23 15: 55 UA Urobilinogen 0.2 mg/dL Last Edit by Chelsea Mejía, [facility] on 4 15:55 UA Protein 0 mg/dL Last Edit by Chelsea Mejía [facility] on 11/06/23 15:55 UA pH 6.0 Last Edit by Chelsea Mejía, [facility] on 11/06/23 15:55 UA Blood 0 Sudeep/uL Last Edit by Chelsea Mejía, [facility] on 11/06/23 15:55 UA Specific [place] 1.025 Last Edit by Chelsea Mejía, [facility] on 15:55 UA Ketone Negative Last Edit by Chelsea Mejía, [facility] on 11/06/23 15:5 5 UA Bilirubin 0 mg/dL Last Edit by Chelsea Mejía, [facility] on 11/06/23 15: 55 UA Glucose 0 mg/dL Last Edit by Chelsea Mejía [facility] on 11/06/23 15:55 Results Reviewed Results Reviewed: Laboratory Last Values Urine pH (Auto) 6.0 11/06/23 15:53 Specific [place] (Auto) 1.025 11/06/23 15:53 Urine Protein (Auto) 0 mg/dL 11/06/23 15:53 Glucose (UA)(Auto) 0 mg/dL 11/06/23 15:53 Urine Ketones (Auto) Negative 11/06/23 15:53 Urine Blood (Auto) 0 Sudeep/uL 11/06/23 15:53 Urine Nitrite (Auto) Negative 11/06/23 15:53 Urine Bilirubin (Auto) 0 mg/dL 11/06/23 15:53 Urine Urobilinogen (Auto) 0.2 mg/dL 11/06/23 15:53 Leukocyte Esterase (Auto) 0 Aleshia/uL 11/06/23 15:53 Assessment & Plan Assessment & Plan (1) Sensation of pressure in bladder area: Code(s): R39.89 - Other symptoms and signs involving the genitourinary system (2) Lower urinary tract symptoms: Code(s): R39.9 - Unspecified symptoms and signs involving the genitourinary system Plan In office urinalysis results reviewed with the patient today; as noted above. Continue Cialis 5 mg daily as patient reports significant improvement in bladder pressure; refill provided. Start VESIcare 5 mg daily as discussed and prescribed; discussed increasing to 10 mg if needed Discussed at length potential causes for lower urinary tract symptoms patient is experiencing. Discussed bladder triggers/irritants. Follow-up in 6 weeks with PVR; or sooner with any issues, concerns, and or questions. Orders: Orders AMB Urinalysis Automated Today R33.9 - Retention of urine, unspecified AMB Post Void Residual by ultrasound Today R33.9 - Retention of urine, unspecified Medications: New solifenacin (Vesicare) 5 mg PO DAILY 30 days 30 tabs 1RF Refilled tadalafil (Cialis) [id number] [facility] [id number] Member [id number] 5 mg PO DAILY 90 days 90 tabs 2RF Patient Instructions: The patient had an opportunity to ask questions regarding the treatment plan. All questions were answered. Physical exam, labs, and imaging were discussed and reviewed in detail. As well as risks, benefits, and discussion of treatment choices. No major barriers to understanding were identified. The patient expressed understanding and agreement with the above treatment plan. The patient was made aware they should contact our office by phone for worsening of their current condition, the appearance of new symptoms, or with any questions or concerns. Compliance is encouraged with any medications and follow up testing that is ordered. It is a privilege to be allowed the opportunity to participate in? your urological care.? Again, if you have any questions or concerns If you have any questions or concerns please do not hesitate to contact me. The office is [phone]. This note is constructed using voice recognition software. While every effort has been made to ensure accuracy senior integration developer errors may have been included. Yours sincerely, JOSEPH Branham Coding Level of Care Code Est Pt Level 4 (55600) Diagnoses Sensation of pressure in bladder area R39.89 Lower urinary tract symptoms R39.9 CPT Codes Post Residual Void - PVR CPT Code: 13945-Yiii Void Residual by ultrasound ([id number])
== END 2023-11-06 16:06 | disposition home or self-care (01) ==
PROVIDERS: PCP Pediatrics; Visit Provider Nurse Practitioner Family
DX: R39.89 Other symptoms and signs involving the genitourinary system (principal); R39.9 Unspecified symptoms and signs involving the genitourinary system; R33.9 Retention of urine, unspecified
CPT/HCPCS: 99214

== ENCOUNTER → 2023-11-06 15:34 | Outpatient (BNVA) | payer OTHER, SELFPAY | PROVIDERS: PCP Pediatrics; Visit Provider Nurse Practitioner Family | DX: R39.89 Other symptoms and signs involving the genitourinary system (principal); R33.9 Retention of urine, unspecified; Z79.899 Other long term (current) drug therapy | CPT/HCPCS: 51798; 81003 ==

== ENCOUNTER 2023-12-17 15:39 | Outpatient (AMB) | payer OTHER, SELFPAY ==
--- NOTE | 2023-12-17 15:41 | MHC.OFFVIS ---
Intake Intake Visit Reasons: 6w/PVR Intake Note: Patient presents for follow up for microscopic hematuria and lower urinary tract symptoms Urology Medications: cialis, vesicare Blood thinner: none PVR: 0ml's Wet Cleaner Machine Required: No Accompanied by: Self / Same As Patient Allergies From PERCOCET Adverse Reaction (Intermediate, Uncoded 12/17/23 16:09) VOMITING Medication List - Last Reconciled 12/17/23 by JOSEPH Branham levonorgestrel-ethinyl estrad 0.15-0.03 mg 1 tab PO DAILY 28 days mirabegron ER (Myrbetriq) 25 mg PO DAILY 30 days tadalafil (Cialis) 5 mg PO DAILY 90 days HPI HPI Comments History of Present Illness Details Carmella is a very pleasant 38 year-old female patient of Dr. Moyer. She has a past medical history of endometriosis, thyroid disease, and asthma. She presents to the office today for follow up of her irritative voiding symptoms. Of note, patient underwent an office cystoscopy with Dr. Guero sewell on 11/08/2022 at which time cystoscopy findings within normal limits, no suspicious bladder lesions were visualized. Previous workup has included a CT urogram noting urinary tract within normal limits. In discussion with the patient today she reports noting significant improvement in urinary pressure she had been experiencing with 5 mg of Cialis daily. However she does continue to report episodes of urinary frequency and urgency. During last office visit oxybutynin was discontinued as patient reported no improvement in lower urinary tract symptoms of urinary urgency and frequency with oxybutynin and 5 mg of VESIcare was prescribed. However, in discussion with the patient today she reports feeling she had somewhat relief in urinary frequency and urgency however was experiencing gastric reflux with VESIcare. She otherwise denies incontinence, nocturia, hematuria, dysuria, foul smelling urine, changes to urinary stream, flank pain, fever, and or chills. Discussed at length potential causes for lower urinary tract symptoms patient is experiencing. In office urinalysis results reviewed with the patient today. PVR 0 mL. 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 Sexual orientation: Straight/Heterosexual Gender identity: Female Female Reproductive History Menstrual Age of Menarche: 11 Review of Systems Const Reports as per HPI Eyes Reports no additional complaints ENT Reports no additional complaints Card Reports no additional complaints Resp Reports as per HPI GI Reports no additional complaints Reports as per HPI Musc Reports no additional complaints Neuro Reports no additional complaints Psych Reports no additional complaints Endo Reports no additional complaints Physical Exam Const General: cooperative, healthy appearing, comfortable, no acute distress, well developed, alert and awake Orientation/consciousness: patient oriented x3 Limitations: no limitations HEENT Head: Yes normal to inspection, Yes normocephalic and Yes atraumatic Ears: hearing grossly normal bilaterally Eyes General: appearance normal, both eyes and all related structures Neck Neck: Yes normal visual inspection and Yes trachea midline Chest Chest palpation & inspection: normal inspection of the chest Resp Effort & Inspection: normal respiratory effort and able to speak in complete sentences Cardio Rate: regular rate GI Inspection: Yes normal to inspection General: Yes no CVA tenderness Back/Spine/Pelvis Back: no CVA tenderness Skin General skin exam: no rashes or lesions noted Neuro General: patient oriented x3 Extrem General: Yes normal to inspection Psych Appearance: grossly normal and well kempt Mental Status: mental status grossly normal Speech and movement: Normal speech and movement present and Clear speech present Affect: normal affect Attitude: cooperative Thought process: Normal thought process present Thought content: Normal thought content present Insight: Good insight present (Psych) Judgement: Good judgement present (Psych) Office Procedures Post Void Residual Post Residual Void Post Void Residual (PVR): 0 [id number] Void Residual by ultrasound Results AMB Urinalysis, Automated UA Leukoctes 0 Aleshia/uL Last Edit by Hossein Wilkinson on 12/17/23 16:05 UA Nitrite Negative Last Edit by Hossein Wilkinson on 12/17/23 16:05 UA Urobilinogen 0.2 mg/dL Last Edit by Hossein Wilkinson on 12/17/23 16:05 UA Protein 0 mg/dL Last Edit by Hossein Wilkinson on 12/17/23 16:05 UA pH 6.0 Last Edit by Hossein Wilkinson on 12/17/23 16:05 UA Blood 0 Sudeep/uL Last Edit by Hossein Wilkinson on 12/17/23 16:05 UA Specific Paisley 1.000 Last Edit by Hossein Wilkinson on 12/17/23 16:05 UA Ketone Negative Last Edit by Hossein Wilkinson on 12/17/23 16:05 UA Bilirubin 0 mg/dL Last Edit by Hossein Wilkinson on 12/17/23 16:05 UA Glucose 0 mg/dL Last Edit by Hossein Wilkinson on 12/17/23 16:05 Results Reviewed Results Reviewed: Laboratory Last Values Urine pH (Auto) 6.0 12/17/23 15:45 Specific Paisley (Auto) 1.000 12/17/23 15:45 Urine Protein (Auto) 0 mg/dL 12/17/23 15:45 Glucose (UA)(Auto) 0 mg/dL 12/17/23 15:45 Urine Ketones (Auto) Negative 12/17/23 15:45 Urine Blood (Auto) 0 Sudeep/uL 12/17/23 15:45 Urine Nitrite (Auto) Negative 12/17/23 15:45 Urine Bilirubin (Auto) 0 mg/dL 12/17/23 15:45 Urine Urobilinogen (Auto) 0.2 mg/dL 12/17/23 15:45 Leukocyte Esterase (Auto) 0 Aleshia/uL 12/17/23 15:45 Assessment & Plan Assessment & Plan (1) Sensation of pressure in bladder area: Code(s): R39.89 - Other symptoms and signs involving the genitourinary system (2) Lower urinary tract symptoms: Code(s): R39.9 - Unspecified symptoms and signs involving the genitourinary system Plan In office urinalysis results reviewed with the patient today; as noted above. PVR 0 mL Continue Cialis 5 mg daily as patient reports significant improvement in bladder pressure. Stop VESIcare. Start Myrbetriq 25 mg daily as discussed Discussed at length potential causes for lower urinary tract symptoms patient is experiencing. Discussed bladder triggers/irritants. Discussed possible near future in office urodynamics for further assessment evaluation. Follow-up in 6 weeks; or sooner with any issues, concerns, and or questions. Orders: Orders AMB Urinalysis Automated Today Z13.9 - Encounter for screening, unspecified AMB Post Void Residual by ultrasound Today R39.9 - Unspecified symptoms and signs involving the genitourinary system Medications: New mirabegron ER (Myrbetriq) 25 mg PO DAILY 30 tabs 1RF 30 days N30.10 - Interstitial cystitis (chronic) without hematuria, N32.81 - Overactive bladder, R35.1 - Nocturia, R39.15 - Urgency of urination Discontinued solifenacin (Vesicare) Discontinued Reason: Doctor's Order 5 mg PO DAILY 30 tabs 1RF 30 days Patient Instructions: The patient had an opportunity to ask questions regarding the treatment plan. All questions were answered. Physical exam, labs, and imaging were discussed and reviewed in detail. As well as risks, benefits, and discussion of treatment choices. No major barriers to understanding were identified. The patient expressed understanding and agreement with the above treatment plan. The patient was made aware they should contact our office by phone for worsening of their current condition, the appearance of new symptoms, or with any questions or concerns. Compliance is encouraged with any medications and follow up testing that is ordered. It is a privilege to be allowed the opportunity to participate in? your urological care.? Again, if you have any questions or concerns If you have any questions or concerns please do not hesitate to contact me. The office is [phone]. This note is constructed using voice recognition software. While every effort has been made to ensure accuracy chip silo tender errors may have been included. Yours sincerely, JOSEPH Branham Coding Level of Care Code Est Pt Level 4 (83918) Diagnoses Sensation of pressure in bladder area R39.89 Lower urinary tract symptoms R39.9 CPT Codes Post Residual Void - PVR CPT Code: 79277-Loed Void Residual by ultrasound ([id number])
== END 2023-12-17 16:10 | disposition home or self-care (01) ==
PROVIDERS: PCP Pediatrics; Visit Provider Nurse Practitioner Family
DX: R39.89 Other symptoms and signs involving the genitourinary system (principal); R39.9 Unspecified symptoms and signs involving the genitourinary system; Z13.9 Encounter for screening, unspecified
CPT/HCPCS: 99214

== ENCOUNTER → 2023-12-17 15:39 | Outpatient (BNVA) | payer OTHER, SELFPAY | PROVIDERS: PCP Pediatrics; Visit Provider Nurse Practitioner Family | DX: R39.89 Other symptoms and signs involving the genitourinary system (principal); N30.10 Interstitial cystitis (chronic) without hematuria; N32.81 Overactive bladder | CPT/HCPCS: 51798; 81003 ==

== ENCOUNTER 2024-02-19 15:39 | Outpatient (AMB) | payer OTHER, SELFPAY ==
--- NOTE | 2024-02-19 16:09 | MHC.OFFVIS ---
Intake Visit Reasons: 2m follow up Intake Note: Patient presents for tele visit follow up for microscopic hematuria and lower urinary tract symptoms Urology Medications: cialis, myrbetriq Blood thinner: none Draw Hand Required: No Accompanied by: Self / Same As Patient Allergies tadalafil [From Cialis] Allergy (Verified 02/19/24 16:23) Swelling From PERCOCET Adverse Reaction (Intermediate, Uncoded 02/19/24 16:16) VOMITING Medication List - Last Reconciled 02/19/24 by JOSEPH Branham levonorgestrel-ethinyl estrad 0.15-0.03 mg 1 tab PO DAILY 28 days mirabegron ER (Myrbetriq) 25 mg PO DAILY 30 days HPI Comments Details: Carmella is a very pleasant 38 year-old female patient of Dr. Moyer. She has a past medical history of endometriosis, thyroid disease, and asthma. She is being follow-up on today via video telehealth for her irritative voiding symptoms. Of note, patient was seen approximately 6 weeks ago at which time VESIcare was discontinued and patient was started on Myrbetriq 25 mg daily. However, in discussion with the patient today she reports to have not received medications to the pharmacy in also reports having stopped low-dose Cialis as she had noted bilateral lower leg extremity edema. She reports since stopping the medication edema has since resolved. She continues with episodes of urinary frequency and urgency. Of note, patient underwent an office cystoscopy with Dr. Guero Ho on 11/08/2022 at which time cystoscopy findings within normal limits, no suspicious bladder lesions were visualized. Previous workup has included a CT urogram noting urinary tract within normal limits. She has previously trialed and failed off of oxybutynin, VESIcare, and Cialis. Call to pharmacy it appears patient needs to attempt step therapy prior to authorization of Myrbetriq. She is aware and agreeable. Will trial tolterodine 2 mg. She otherwise denies incontinence, nocturia, hematuria, dysuria, foul smelling urine, changes to urinary stream, flank pain, fever, and or chills. Discussed at length potential causes for lower urinary tract symptoms patient is experiencing. 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 Sexual orientation: Straight/Heterosexual Gender identity: Female Female Reproductive History Menstrual Age of Menarche: 11 Review of Systems Const Reports as per HPI Eyes Reports no additional complaints ENT Reports no additional complaints Card Reports no additional complaints Resp Reports as per HPI GI Reports no additional complaints Reports as per HPI Musc Reports no additional complaints Neuro Reports no additional complaints Psych Reports no additional complaints Endo Reports no additional complaints Physical Exam Const General: cooperative, healthy appearing, comfortable, no acute distress, well developed, alert and awake Orientation/consciousness: patient oriented x3 Resp Effort & Inspection: normal respiratory effort and able to speak in complete sentences Neuro General: patient oriented x3 Psych Appearance: grossly normal and well kempt Mental Status: mental status grossly normal Speech and movement: Normal speech and movement present and Clear speech present Affect: normal affect Attitude: cooperative Thought process: Normal thought process present Thought content: Normal thought content present Insight: Fair insight present (Psych) Judgement: Fair judgement present (Psych) Telehealth Telehealth Telehealth Platform: [facility] Location of provider rendering services: practice address Location of patient: address on file Patient Identification confirmed using: Name, : Yes Telehealth method: video Patient verbally consented to treatment: Yes Patient verbally consented to billing insurance company: Yes Patient informed of any privacy concerns related to visit: Yes Minutes spent on Phone/Video with Pt.: 15 Assessment & Plan Assessment & Plan (1) Sensation of pressure in bladder area: Code(s): R39.89 - Other symptoms and signs involving the genitourinary system Category: Medical (2) Lower urinary tract symptoms: Code(s): R39.9 - Unspecified symptoms and signs involving the genitourinary system Category: Medical Plan Stop Cialis 5 mg daily as patient reports bilateral lower extremity edema. Start tolterodine 2 mg as discussed and prescribed. Discussed potential causes for lower urinary tract symptoms patient is experiencing. Discussed bladder triggers/irritants. Discussed possible near future in office urodynamics for further assessment evaluation. Follow-up in 6 weeks; or sooner with any issues, concerns, and or questions. Medications: New tolterodine ER 2 mg PO DAILY 30 caps 1RF 30 days R39.15 - Urgency of urination Discontinued tadalafil (Cialis) [id number] [facility] [id number] Member [id number] Discontinued Reason: Patient no longer taking 5 mg PO DAILY 90 days 90 tabs 2RF Patient Instructions: The patient had an opportunity to ask questions regarding the treatment plan. All questions were answered. Physical exam, labs, and imaging were discussed and reviewed in detail. As well as risks, benefits, and discussion of treatment choices. No major barriers to understanding were identified. The patient expressed understanding and agreement with the above treatment plan. The patient was made aware they should contact our office by phone for worsening of their current condition, the appearance of new symptoms, or with any questions or concerns. Compliance is encouraged with any medications and follow up testing that is ordered. It is a privilege to be allowed the opportunity to participate in? your urological care.? Again, if you have any questions or concerns If you have any questions or concerns please do not hesitate to contact me. The office is [phone]. This note is constructed using voice recognition software. While every effort has been made to ensure accuracy bath design sales consultant errors may have been included. Yours sincerely, JOSEPH Branham Coding Level of Care Code Tele Est Pt Level 3 (63686) Diagnoses Sensation of pressure in bladder area R39.89 Lower urinary tract symptoms R39.9
== END 2024-02-19 16:23 | disposition home or self-care (01) ==
LOC: HO.HUSH 15:39
PROVIDERS: PCP Pediatrics; Visit Provider Nurse Practitioner Family
DX: R39.89 Other symptoms and signs involving the genitourinary system (principal); R39.9 Unspecified symptoms and signs involving the genitourinary system
CPT/HCPCS: 99213

== ENCOUNTER → 2024-02-19 15:39 | Outpatient (BNVA) | payer OTHER, SELFPAY | PROVIDERS: PCP Pediatrics; Visit Provider Nurse Practitioner Family ==

== ENCOUNTER 2024-03-28 10:30 | Outpatient (REF) | payer OTHER, SELFPAY ==
--- NOTE | ~2024-03-28 | MM_ITS ---
EXAMINATION: MM SCREENING DIGITAL BREAST TOMOSYNTHESIS, BILATERAL CLINICAL INFORMATION: Screening. Asymptomatic. COMPARISON: Mammography: This is a baseline mammogram. TECHNIQUE: Digital breast tomosynthesis is performed in both the craniocaudal and mediolateral oblique views along with computer-aided detection (CAD). Synthesized 2D images are generated from the tomosynthesis. FINDINGS: There are scattered areas of fibroglandular density (ACR BI-RADS breast composition Category b). There are no significant masses, abnormal calcifications, or other abnormalities. MM/MM tomosynthesis screening BI IMPRESSION: No mammographic evidence of malignancy. ASSESSMENT: BI-RADS BI-RADS 1 - Negative RECOMMENDATION: Routine annual mammography screening. 1 year F/U This examination should not preclude the clinical evaluation of a suspicious palpable abnormality. This patient's information was entered into a reminder system with a target due date for their next mammogram.
== END 2024-03-28 10:31 | disposition home or self-care (01) ==
LOC: HO.MAMMO 10:30
PROVIDERS: Visit Provider Obstetrics & Gynecology
DX: Z12.31 Encounter for screening mammogram for malignant neoplasm of breast (principal)
CPT/HCPCS: 77063; 77067

== ENCOUNTER → 2024-03-28 10:32 | Outpatient (BNV) | payer OTHER, SELFPAY | PROVIDERS: Visit Provider Radiology Diagnostic Radiology | DX: Z12.31 Encounter for screening mammogram for malignant neoplasm of breast (principal) | CPT/HCPCS: 77063; 77067 ==

== ENCOUNTER 2024-04-29 09:20 | Outpatient (AMB) | payer OTHER, SELFPAY ==
--- NOTE | 2024-04-29 08:30 | A.OFFVIS_ITS ---
Intake Visit Reasons: 3m follow up Intake Note: Patient presents for tele visit 3m follow up Urology Medications:none Blood thinner: none Wastewater Process Engineer Required: No Accompanied by: Self / Same As Patient Allergies tadalafil [From Cialis] Allergy (Verified 04/29/24 08:32) Swelling From PERCOCET Adverse Reaction (Intermediate, Uncoded 04/29/24 08:32) VOMITING 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
--- NOTE | 2024-04-29 09:19 | MHC.OFFVIS ---
Intake Visit Reasons: 3m follow up Intake Note: Patient presents for tele visit follow up for microscopic hematuria and lower urinary tract symptoms Urology Medications: tolterodine Blood thinner: none Corn Husk Baler Required: No Accompanied by: Self / Same As Patient Allergies tadalafil [From Cialis] Allergy (Verified 04/29/24 09:22) Swelling From PERCOCET Adverse Reaction (Intermediate, Uncoded 04/29/24 09:22) VOMITING HPI Comments Details: Carmella is a very pleasant 38 year-old female patient of Dr. Moyer. She has a past medical history of endometriosis, thyroid disease, and asthma. She is being follow-up on today via telehealth for her irritative voiding symptoms. Of note, patient was seen approximately 6 weeks ago at which time she was started on tolterodine. In discussion with the patient today she reports very minimal improvement in lower urinary tract symptoms despite 2 mg of tolterodine as well as 4 mg of tolterodine. She continues to report feelings of incomplete bladder emptying, urinary hesitancy, bladder pressure, and urinary urgency. Previous workup has included a CT urogram as well as in office cystoscopy. Of note, patient underwent an office cystoscopy with Dr. Guero Ho on 11/08/2022 at which time cystoscopy findings within normal limits, no suspicious bladder lesions were visualized. CT urogram noting urinary tract within normal limits. She has previously trialed and failed off of oxybutynin, VESIcare, Cialis, and now tolterodine. She otherwise denies incontinence, nocturia, hematuria, dysuria, foul smelling urine, changes to urinary stream, flank pain, fever, and or chills. Discussed at length potential causes for lower urinary tract symptoms patient is experiencing. She otherwise offers no other issues or concerns at this time. 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 Sexual orientation: Straight/Heterosexual Gender identity: Female Female Reproductive History Menstrual Age of Menarche: 11 Review of Systems Const Reports as per HPI Eyes Reports no additional complaints ENT Reports no additional complaints Card Reports no additional complaints Resp Reports as per HPI GI Reports no additional complaints Reports as per HPI Musc Reports no additional complaints Neuro Reports no additional complaints Psych Reports no additional complaints Endo Reports no additional complaints Physical Exam Const General: cooperative Orientation/consciousness: patient oriented x3 Resp Effort & Inspection: able to speak in complete sentences Neuro General: patient oriented x3 Psych Speech and movement: Clear speech present Attitude: cooperative Thought process: Normal thought process present Thought content: Normal thought content present Insight: Good insight present (Psych) Judgement: Good judgement present (Psych) Telehealth Telehealth Telehealth Platform: [employer] Location of provider rendering services: practice address Location of patient: address on file Patient Identification confirmed using: Name, : Yes Telehealth method: voice only Patient verbally consented to treatment: Yes Patient verbally consented to billing insurance company: Yes Patient informed of any privacy concerns related to visit: Yes Minutes spent on Phone/Video with Pt.: 20 Assessment & Plan Assessment & Plan (1) Sensation of pressure in bladder area: Code(s): R39.89 - Other symptoms and signs involving the genitourinary system Category: Medical (2) Lower urinary tract symptoms: Code(s): R39.9 - Unspecified symptoms and signs involving the genitourinary system Category: Medical Plan Stop tolterodine as discussed and prescribed. Start Gemtesa as discussed and prescribed. Discussed at length potential causes for lower urinary tract symptoms patient is experiencing. Discussed bladder triggers/irritants. Discussed, educated, stressed the importance of adequate hydration relation to lower urinary tract symptoms as well as overall health and well-being. Discussed possible pelvic floor therapy Will schedule for in office urodynamics for further assessment evaluation Follow-up per doctor's orders; or sooner with any issues, concerns, and or questions. Medications: New vibegron (Gemtesa) 75 mg PO DAILY 30 tabs 3RF 30 days N32.81 - Overactive bladder Discontinued tolterodine ER Discontinued Reason: Doctor's Order 2 mg PO DAILY 30 days 30 caps 1RF R39.15 - Urgency of urination Patient Instructions: The patient had an opportunity to ask questions regarding the treatment plan. All questions were answered. Physical exam, labs, and imaging were discussed and reviewed in detail. As well as risks, benefits, and discussion of treatment choices. No major barriers to understanding were identified. The patient expressed understanding and agreement with the above treatment plan. The patient was made aware they should contact our office by phone for worsening of their current condition, the appearance of new symptoms, or with any questions or concerns. Compliance is encouraged with any medications and follow up testing that is ordered. It is a privilege to be allowed the opportunity to participate in? your urological care.? Again, if you have any questions or concerns If you have any questions or concerns please do not hesitate to contact me. The office is [phone]. This note is constructed using voice recognition software. While every effort has been made to ensure accuracy squad sergeant errors may have been included. Yours sincerely, JOSEPH Branham Coding Level of Care Code Tele Est Pt Level 4 (30136) Diagnoses Sensation of pressure in bladder area R39.89 Lower urinary tract symptoms R39.9
== END 2024-04-29 09:34 | disposition home or self-care (01) ==
LOC: HO.HUSH 09:20
PROVIDERS: Visit Provider Nurse Practitioner Family
DX: R39.89 Other symptoms and signs involving the genitourinary system (principal); R39.9 Unspecified symptoms and signs involving the genitourinary system
CPT/HCPCS: 99214

== ENCOUNTER → 2024-04-29 09:20 | Outpatient (BNVA) | payer OTHER, SELFPAY | PROVIDERS: Visit Provider Nurse Practitioner Family ==

== ENCOUNTER 2024-05-06 12:53 | Outpatient (AMB) | payer OTHER, SELFPAY ==
[2024-05-06 12:55] VITALS: BP 110/70; BMI 32.8
--- NOTE | 2024-05-06 12:55 | A.OFFVIS_ITS ---
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 No complaints. Last Pap/HPV was negative in 04/15 Last Mammogram was BI-RADS 1 04/16 Last pelvic ultrasound 05/16 showed 2 small myomas, the patient is doing well with no pelvic pain pressure or abnormal uterine bleeding control pills and is requesting refill [facility] Medical History Endometriosis Thyroid disease Asthma Surgical History History of ovarian cystectomy History of cholecystectomy History of appendectomy History of tonsillectomy H/O wrist surgery History of knee surgery Family History Mother Prediabetes Father Diabetes Social History Household Members: Family Housing: House Alcohol intake: current Alcohol intake frequency: holidays/special occasions only Patient Tobacco Use Status: Never used Tobacco service: No Current occupational status: 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 Sexual orientation: Straight/Heterosexual Gender identity: Female Female Reproductive History Menstrual Age of Menarche: 11 Date of last menstrual period: 04/16/24 control method: pills Total pregnancies: 0 Date of last pap smear: 04/18/23 (neg pap and hpv) Date of Mammogram: 03/28/24 Review of Systems Const All systems reviewed & are unremarkable except as noted in HPI and below Card Reports as per HPI Resp Reports as per HPI GI Reports as per HPI and Reports no additional complaints Reports as per HPI Physical Exam Vital Signs: BMI result Body Mass Index 32.8 Const General: cooperative, healthy appearing and comfortable Chest Chest palpation & inspection: normal inspection of the chest and normal palpation of entire chest wall Breast/axilla inspection: normal inspection of the breasts and normal inspection of the axillae Breast/axilla palpation: normal palpation of the breasts, normal palpation of the axillae and no axillary lymphadenopathy Resp Effort & Inspection: normal respiratory effort Auscultation: clear to auscultation bilaterally Percussion: percussion normal Cardio Palpation: normal PMI Rate: regular rate Rhythm: regular rhythm Heart sounds: no murmurs and no rubs Peripheral pulses: Peripheral pulses 2+ throughout GI Inspection: Yes normal to inspection Palpation (GI): Soft to palpation, nontender, no guarding, not rigid and No h epatosplenomegaly present Percussion: Yes normal to percussion Auscultation: normal bowel sounds Rectal Exam - Female: deferred General: Yes bladder normal to palpation External Female Exam: No lesion Speculum Exam - Vagina: normal appearance of the vagina, normal palpation, normal vaginal discharge and not erythematous Speculum Exam - Cervix: normal appearance of the cervix and normal palpation Bimanual exam- vagina & uterus: normal bimanual exam, normal palpation, uterine size normal, bladder normal to palpation, consistency normal and normal palpation Bimanual Exam- Adnexa, other: normal adnexae, no masses and no tenderness Assessment & Plan Assessment & Plan (1) Well woman exam: Code(s): Z01.419 - Encounter for gynecological examination (general) (routine) without abnormal findings Category: Medical Plan: Cotesting not indicated this year. Instructions given to patient to schedule next screening Mammogram in 04/17. Counseled the patient about the recommended dietary allowance of 1000 mg of Calcium & 600 IU of vitamin D. The patient was instructed to perform monthly self-breast exams and to schedule an annual exam in a year; All questions answered and the patient verbalized understanding. Instructed the patient to schedule annual exam in a year (2) Uterine myoma: Code(s): D25.9 - Leiomyoma of uterus, unspecified Category: Medical Plan: Pelvic ultrasound ordered, instructions given the patient to schedule an ultrasound and a follow-up appointment within 2 weeks. Orders: Orders US pelvic and transvaginal Today D25.9 - Leiomyoma of uterus, unspecified Medications: Refilled levonorgestrel-ethinyl estrad 0.15-0.03 mg Take 1 tablet a day for 28 days Ninety day supply 1 tab PO DAILY 28 days 84 tabs 0RF Coding Level of Care Code Est Pt Prev Care 40-64y(42920) Diagnoses Well woman exam Z01.419 Uterine myoma D25.9
== END 2024-05-06 13:48 | disposition home or self-care (01) ==
PROVIDERS: PCP Pediatrics; Visit Provider Obstetrics & Gynecology
DX: Z01.419 Encounter for gynecological examination (general) (routine) without abnormal findings (principal); D25.9 Leiomyoma of uterus, unspecified
CPT/HCPCS: 99396

== ENCOUNTER → 2024-05-06 12:53 | Outpatient (BNVA) | payer OTHER, SELFPAY | PROVIDERS: PCP Pediatrics; Visit Provider Obstetrics & Gynecology ==

== ENCOUNTER 2024-05-08 16:25 | Outpatient (REF) | payer OTHER, SELFPAY ==
--- NOTE | ~2024-05-08 | US_ITS ---
EXAMINATION: US PELVIS CLINICAL INFORMATION: Leiomyomatous uterus, last menstrual period 04/21/2024. COMPARISON: Pelvic ultrasound 05/02/2023, CT abdomen and pelvis 06/21/2023. TECHNIQUE: Ultrasound of the pelvis is performed using both transabdominal and transvaginal transducers along with Doppler. Transvaginal imaging is performed due to inadequate visualization transabdominally. FINDINGS: The uterus is anteverted and measures 7.1 x 2.1 x 3.9 cm, volume 30.4 mL. Trace fluid in the cervix. Nabothian cysts. Endometrial thickness is 4 mm. A 0.2 cm echogenic focus is seen subjacent to the endometrium. Left ovarian 1.9 cm simple cyst, likely physiologic. Left ovary measures 2.5 x 1.2 x 1.4 cm, volume 2.2 mL. Right ovary is difficult to visualize with certainty, but structure felt to possibly represent the right ovary measures 2.2 x 0.6 x 1.5 cm, volume 1.0 mL. 1.2 x 1.2 x 1.1 cm left fibroid, previously 0.8 x 0.8 x 0.7 cm. Right 0.4 x 0.3 x 0.5 cm fibroid, previously 0.6 x 0.4 x 0.6 cm. No significant free fluid. US/US pelvic and transvaginal IMPRESSION: 1. Right ovary difficult to visualize with certainty as detailed above. The right ovarian 2.4 cm benign-appearing simple cyst identified on CT scan of the abdomen and pelvis is not clearly visualized today. 2. Endometrial thickness 4 mm. A 0.2 cm echogenic focus, possibly calcification, is noted subjacent to the endometrium and is of uncertain etiology and significance. 3. Interval increase in size of uterine fibroids. 4. Left ovarian 1.9 cm simple cyst is likely physiologic. There is no specific indication for additional imaging at this time. Electronically signed by: Felicity Robbins MD 05/28/2024 03:47 PM EDT
== END 2024-05-08 16:26 | disposition home or self-care (01) ==
LOC: HO.US 16:25
PROVIDERS: PCP Pediatrics; Visit Provider Obstetrics & Gynecology
DX: D25.9 Leiomyoma of uterus, unspecified (principal)
CPT/HCPCS: 76830; 76856

== ENCOUNTER 2024-06-19 12:18 | Outpatient (AMB) | payer OTHER, SELFPAY ==
--- NOTE | 2024-06-19 12:19 | A.OFFVIS_ITS ---
Vital Signs 06/19/24 12:22 Height 5 ft 3 in Weight 182 lb 15.739 oz BMI 32.4 Intake Visit Reasons: Ultra sound follow up Allergies tadalafil [From Cialis] Allergy (Verified 05/06/24 12:55) Swelling From PERCOCET Adverse Reaction (Intermediate, Uncoded 04/29/24 09:22) VOMITING HPI Comments Details: Presenting for pelvic ultrasound follow-up. Ultrasound done in 05/17 showed the following: The uterus is anteverted and measures 7.1 x 2.1 x 3.9 cm, volume 30.4 mL. Trace fluid in the cervix. Nabothian cysts. Endometrial thickness is 4 mm. A 0.2 cm echogenic focus is seen subjacent to the endometrium. Left ovarian 1.9 cm simple cyst, likely physiologic. Left ovary measures 2.5 x 1.2 x 1.4 cm, volume 2.2 mL. Right ovary is difficult to visualize with certainty, but structure felt to possibly represent the right ovary measures 2.2 x 0.6 x 1.5 cm, volume 1.0 mL. 1.2 x 1.2 x 1.1 cm left fibroid, previously 0.8 x 0.8 x 0.7 cm. Right 0.4 x 0.3 x 0.5 cm fibroid, previously 0.6 x 0.4 x 0.6 cm. No significant free fluid. 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 Sexual orientation: Straight/Heterosexual Gender identity: Female Female Reproductive History Menstrual Age of Menarche: 11 Review of Systems Const All systems reviewed & are unremarkable except as noted in HPI and below Reports as per HPI and Reports no additional complaints GI Reports no additional complaints Reports no additional complaints Physical Exam Vital Signs: BMI result Body Mass Index 32.4 Assessment & Plan Assessment & Plan (1) Uterine myoma: Code(s): D25.9 - Leiomyoma of uterus, unspecified Category: Medical Plan: Discussed with the patient the findings on pelvic ultrasound & the risk of myosarcoma; discussed with the patient the options of treatment including expectant management versus hysterectomy; the pros and cons, risks benefits of each approach were discussed with the patient including the fact that in cases of myosarcoma, surgical treatment can lead to early diagnosis and positively affects the prognosis; after further discussion, the patient decided to proceed with expectant management. Will repeat pelvic ultrasound periodically. Instructions given to patient to call in case any of the following occurs: pressure symptoms, abnormal uterine bleeding, pelvic pain; and to schedule a 12 months pelvic ultrasound and a follow-up appointment . All questions answered, the patient verbalized understanding and agreed with the plan . (2) Abnormal ultrasound: Code(s): R93.89 - Abnormal findings on diagnostic imaging of other specified body s tructures Category: Medical Plan: Discussed with the patient the 0.2 cm echogenic focus is seen subjacent to the endometrium. Explained to the patient this finding is of uncertain etiology and clinical significance. The Differential diagnosis includes but not limited to myomas, adenomyosis or endometrial pathology including endometrial myoma and or polyp. Discussed with the patient options of treatment include hysteroscopy D&C possible polypectomy/myomectomy versus expectant management. All pros and cons risks and benefits of each were discussed with the patient, the patient decided to proceed with expectant management. Instructions given to patient to call in case of abnormal uterine bleeding pelvic pain or pressure otherwise will repeat ultrasound in 12 months. Instructions given the patient to schedule an ultrasound and a follow-up appointment in 1 year. All questions answered, the patient verbalized understanding Orders: Orders US pelvic and transvaginal Today D25.9 - Leiomyoma of uterus, unspecified, R93.89 - Abnormal findings on diagnostic imaging of other specified body structures Coding Level of Care Code Est Pt Level 3 (20897) Diagnoses Uterine myoma D25.9 Abnormal ultrasound R93.89
[2024-06-19 12:22] VITALS: BMI 32.4
== END 2024-06-19 13:46 | disposition home or self-care (01) ==
LOC: HO.HWS 12:18
PROVIDERS: PCP Pediatrics; Visit Provider Obstetrics & Gynecology
DX: D25.9 Leiomyoma of uterus, unspecified (principal); R93.89 Abnormal findings on diagnostic imaging of other specified body structures
CPT/HCPCS: 99213

== ENCOUNTER → 2024-06-19 12:18 | Outpatient (BNVA) | payer OTHER, SELFPAY | PROVIDERS: PCP Pediatrics; Visit Provider Obstetrics & Gynecology ==

== ENCOUNTER 2024-09-05 16:35 | Outpatient (REF) | payer OTHER, SELFPAY ==
--- OUTSIDE RECORDS SUMMARY | 2024-09-05 16:48 | XMS_ITS | Data Portability ---
Author Organization [place] [facility] [place] Address [address] [place] [address] Assessment Encounter Date Assessment Date Assessment LastModified by Organization Details LastModified Time 12/11/2022 12/11/2022 Carmella has made improvements in regards to her knee contusion. She has some slight laxity and discomfort over the medial collateral ligament but has been making improvements. No signs of instability. Her ACL is intact. She would like to continue with her home exercise program. She will follow-up in 2 months to assess her progress, sooner for any complications. [email or web address] Not available 12/12/2022 17:17:04 02/12/2023 02/12/2023 Carmella has made improvements in regards to her knee contusion, but has ongoing discomfort. She has some slight laxity and discomfort over the medial collateral ligament but has been making improvements. No signs of instability. Her ACL is intact. She will continue with her home exercise program. She will follow-up in [address] Jimenez to assess her progress, sooner for any complications. [email or web address] Not available 02/15/2023 10:57:18 03/26/2023 03/26/2023 Persistent right knee medially based pain following a contusion. History of an arthroscopy back in June 2022 after she did very well. I reviewed treatment options with her. This included a discussion regarding observation, consideration of an intra-articular injection, physical therapy, consideration of the medial screen printing loader unloader brace. She is apprehensive about an injection, decided on trying physical therapy. We will request authorization for the medial screen printing loader unloader brace. If no improvement consider the injection versus further work-up with an MRI. She is in agreement with the plan. Greater than 30 minutes was spent with the encounter today, including face to face time with the patient, documentation, review of records/imaging if applicable, and coordination of care. PRIOR DALJIT: Carmella has made improvements in regards to her knee contusion, but has ongoing discomfort. She has some slight laxity and discomfort over the medial collateral ligament but has been making improvements. No signs of instability. Her ACL is intact. She will continue with her home exercise program. She will follow-up in [address] Jimenez to assess her progress, sooner for any complications. [email or web address] Not available 03/26/2023 09:31:29 05/22/2023 05/22/2023 Carmella presents to the office today to follow-up on her left knee pain following medial contusion. Overall symptomatic improvement. She would like to continue with conservative management. She can continue to use the knee brace and/or sleeve as she sees fit for comfort and support. Advised gradual return to activity as tolerated. She will continue to do home exercises. Icing protocol reviewed. She can use anfb-amm-[id number] anti-inflammator ies and Tylenol as needed with appropriate dosing and GI precautions. It appears things are moving in the right direction. She can follow-up with our office on an as-needed basis. Advised if she decides she would like to pursue formal physical therapy she can call for prescription. Questions invited and answered. Patient verbalizes understanding and agreement with plan. PRIOR: Persistent right knee medially based pain following a contusion. History of an arthroscopy back in June 2022 after she did very well. I reviewed treatment options with her. This included a discussion regarding observation, consideration of an intra-articular injection, physical therapy, consideration of the medial screen printing loader unloader brace. She is apprehensive about an injection, decided on trying physical therapy. We will request authorization for the medial screen printing loader unloader brace. If no improvement consider the injection versus further work-up with an MRI. She is in agreement with the plan. PRIOR DALJIT: Carmella has made improvements in regards to her knee contusion, but has ongoing discomfort. She has some slight laxity and discomfort over the medial collateral ligament but has been making improvements. No signs of instability. Her ACL is intact. She will continue with her home exercise program. She will follow-up in [address] Jimenez to assess her progress, sooner for any complications. [email or web address] Not available 05/22/2023 17:07:06 Plan of Treatment Reminders Order Date Submit Date Provider Last Modified By Organization Details Last Modified Time Details Appointments None recorded. Lab None recorded. Referral physical therapist referral 2022 023 [email or web address] Not available 3 09:30:10 Procedures None recorded. Surgeries None recorded. Imaging None recorded. Medication Orders None recorded. Patient TargetsNo targets recorded. Patient InstructionsNo instructions recorded. 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 111662635 Active [address], [place], [address], [place] [facility] 3 09:52:40 Pes anserinus bursitis of right knee 9238554530119 109 Active [address], [place], [address], [place] [facility] 3 09:45:30 Osteoarthri tis of right knee joint 1745693602039 00 Active [address], [place], [address], [place] [facility] 3 09:45:32 Contusion of right knee 2613011443508 9104 Active [address], [place], [address], [place] [facility] 3 17:16:18 Sprain of medial collateral ligament of knee 51002783 Active [address], [place], [address], [place] [facility] 3 17:16:26 Problem Notes None recorded. Medical Equipment None Reported. Allergies Allergen ID Allergen Name Allergen Category Reaction Reaction Severity Criticality Documentation Date Start Date Code Code System Note Provider Name and Address Organization Details Recorded Time 555 acetamino phen / oxycodone medicatio n Not available Not available Not available 12/11/2022 78679 3 RxNorm Christine George null, [facility] 3 15:45:23 Medications Name Sig Start Date Stop Date Status Note LastModified by Organization Details LastModified Time binaxnow covid-19 ag card home test kit active Not Available Not Available Not Available amoxicillin 500 mg capsule 03/25 completed Not Available Not Available Not Available neomycin-po lymyxin-hyd rocort 3.5 mg/mL-10,00 0 unit/mL-1 % ear solution INSTILL 4 DROPS INTO AFFECTED EAR(S) BY OTIC ROUTE 3 TIMES PER DAY X 5 DAYS active Not Available Not Available No t Available ondansetron HCl 4 mg tablet active Not Available Not Available Not Available meloxicam 7.5 mg tablet active Not Available Not Available Not Available cephalexin 500 mg capsule active Not Available Not Available Not Available gabapentin 300 mg capsule active Not Available Not Available Not Available oxycodone 5 mg tablet active Not Available Not Available No t Available Kurvelo (28) 0.15 mg-0.03 mg tablet 1 tablet every day by oral route. active Not Available Not Available No t Available Vitals Date Recorded Body height Body mass index (BMI) Body weight Provider Name and Address Organization Details Last Updated DateTime 12/11/2022 160.02 cm 27.5 kg/m2 44708.82 g Christine George [facility], [facility] 12/11/2022 15:45:51 Date Recorded Body height Body mass index (BMI) Body weight Provider Name and Address Organization Details Last Updated DateTime 02/12/2023 160.02 cm 27.5 kg/m2 05900.82 g Sergio Gar [facility] 02/12/2023 15:06:29 Date Recorded Body height Body mass index (BMI) Body weight Provider Name and Address Organization Details Last Updated DateTime 03/26/2023 160.02 cm 27.5 kg/m2 [address] [place] [facility] 03/26/2023 09:04:15 Date Recorded Body height Body mass index (BMI) Body weight Provider Name and Address Organization Details Last Updated DateTime 05/22/2023 160.02 cm 27.5 kg/m2 [address]11.[address] [place] [facility] 05/22/2023 16:26:10 Social History Question Answer Notes LastModified by Organizat ion Details LastModified Time Tobacco Smoking Status Never Smoker Christine George paty, [place] - [facility] 12/11/2022 15:46:01 What Is Your Level Of Alcohol Consumption? Occasional [email or web address] Information not available 12/11/2022 Do You Use Any Illicit Or Recreational Drugs? No [email or web address] Information not available 12/11/2022 Do You Or Have You Ever Used Any Other Forms Of Tobacco Or Nicotine? No [email or web address] Information not available 12/11/2022 Sex: Unknown Functional Status None recorded. Mental Status None recorded. Family History Relationship Description Onset Age of this Age Resolved Age Notes LastModified by Organization Details LastModified Time Father Diabetes mellitus [email or web address] Not available 2022 15:46:31 Mother Diabetes mellitus [email or web address] Not available 2022 15:46:35 Mother Heart disease [email or web address] Not available 16:26:03 Medical History Condition Response Anemia Y Asthma Y Gynecological HistoryNo gynecological history recorded. Obstetrics History GPAL:G 0 P 0 0 0 0 Past Encounters Encounter ID Performer Location Encounter Start Date Encounter Closed Date Diagnosis/Indication Diagnosis SNOMED-CT Code Diagnosis ICD10 Code [id number] Jhony Jimenez MD [address] [place] [address] 12/11/2022 15:24:09 12/11/2022 16:12:06 Contusion of right knee 3054696082 4037880 S80.01XD Sprain of medial collateral ligament of knee 61597493 S83.411D History of reconstruction of anterior cruciate ligament tear 075806925 Z98.890 [id number] MD FABI Bingham [address] [place] [address] 02/12/2023 15:05:06 02/12/2023 15:34:39 Sprain of medial collateral ligament of knee 74604286 S83.411D Contusion of right knee 9482887022 3164804 S80.01XD History of reconstruction of anterior cruciate ligament tear 435476586 Z98.890 [id number] MD FABI Bingham [place] [address] [address] 03/26/2023 09:01:45 03/26/2023 09:30:09 Contusion of right knee 7603676620 5520743 S80.01XD Sprain of medial collateral ligament of knee 89639621 S83.411D History of reconstruction of anterior cruciate ligament tear 453881870 Z98.890 Osteoarthr itis of right knee joint 2540889078 94712 M17.11 Pes anseri nus bursitis of right knee 3513335962 080475 M70.51 [id number] MD FABI Bingham [address] [place] [address] [place] [address] 05/22/2023 16:21:35 05/22/2023 16:39:39 History of reconstruction of anterior cruciate ligament tear 233713455 Z98.890 Contusion of right knee 1379427080 1647333 S80.01XD Sprain of medial collateral ligament of knee 15556860 S83.411D Osteoarthr itis of right knee joint 4239967622 75362 M17.11 Health Concerns Section Related Observation LastModified by Organization Detai ls LastModified Time None Recorded Concern Status LastModified by Organization Details LastModified Time None Recorded Advance Directives Directive None Recorded Payers Encounter Date Sequence Insurance Name Policy Number Policy Villalta Covered Member ID Villalta Member ID Guarantor Name 12/11/2022 1 [facility]) [id number] Carmella Blevins [id number] Carmella Blevins 02/12/2023 1 [facility] ([facility] [place] [id number] Carmella Blevins [id number] Carmella Blevins 03/26/2023 1 [facility]) [id number] Carmella Blevins [id number] Carmella Blevins 05/22/[address] [place] [address] ([facility] [place] [id number] Carmella Blevins [id number] Carmella Blevins Notes Date Note Type Note Provider Name and Address Organization Details Recorded Time 12/11/2022 text/html Patient is a pleasant 37-year-old female known to Dr. Jimenez 5 months postop who had a new injury. She slipped on ice and was concerned she had a reinjury. Fortunately, she has been making progress since her last visit. Her swelling has decreased with only slight discomfort. She still has pain with specific movements, but feels she is making significant progress. Prior SB 11/20/22The patient is now 4 months post-op. She is here for a new injury. She was doing well until she slipped and fell on ice on 11/15/2022. She recalls going up in the air, coming down and striking the anterior aspect of her right knee. She developed swelling and bruising. She had a fairly significant abrasion over the anterior knee which continues to heal. Symptoms are slowly improving but she is still fairly uncomfortable, particularly over the medial knee. She denies radiating pain to the hip or ankle. She rates her pain between a 3 to a 7 on a 10 point scale.??PRIOR:She is doing well. She feels she is making good progress with her home exercise program. She notes occasional medial discomfort, but this is not all the time. She perhaps notices it most consistently on stairs. She denies any swelling or instability. She feels she is substantially better with regards to symptoms as compared to before surgery.??PRIOR:She is making progress. She continues with a home exercise program. She has some occasional posterior and medial discomfort with certain activities but overall feels she is improving. Going downstairs is improving.??PRIOR:S he is overall doing well. She denies any problems with the incisions. She denies any fevers or chills. She denies any calf pain chest pain or shortness of breath. She is taking occasional Tylenol for soreness. BETH LYNN PA-C [address], [place], [address], [place] [facility] 12/12/2022 17:17:31 02/12/2023 text/html Patient is a 37-year-old female who presents today for follow-up of right knee pain. She has made improvement since her last visit. Has been doing home exercises and walking. Unfortunately, she still has episodes where she feels her knee gives out. Episodes of pain improve on their own. Pain is primarily in the medial part of her knee. Prior 12/11/2022:Patient is a pleasant 37-year-old female known to Dr. Jimenez 5 months postop who had a new injury. She slipped on ice and was concerned she had a reinjury. Fortunately, she has been making progress since her last visit. Her swelling has decreased with only slight discomfort. She still has pain with specific movements, but feels she is making significant progress. Prior SB 11/20/22The patient is now 4 months post-op. She is here for a new injury. She was doing well until she slipped and fell on ice on 11/15/2022. She recalls going up in the air, coming down and striking the anterior aspect of her right knee. She developed swelling and bruising. She had a fairly significant abrasion over the anterior knee which continues to heal. Symptoms are slowly improving but she is still fairly uncomfortable, particularly over the medial knee. She denies radiating pain to the hip or ankle. She rates her pain between a 3 to a 7 on a 10 point scale.??PRIOR:She is doing well. She feels she is making good progress with her home exercise program. She notes occasional medial discomfort, but this is not all the time. She perhaps notices it most consistently on stairs. She denies any swelling or instability. She feels she is substantially better with regards to symptoms as compared to before surgery.??PRIOR:She is making progress. She continues with a home exercise program. She has some occasional posterior and medial discomfort with certain activities but overall feels she is improving. Going downstairs is improving.??PRIOR:S he is overall doing well. She denies any problems with the incisions. She denies any fevers or chills. She denies any calf pain chest pain or shortness of breath. She is taking occasional Tylenol for soreness. BETH LYNN PA-C [address], [place], [address], [place] [facility] 02/15/2023 10:58:05 03/26/2023 text/html She was doing ve ry well up until she had the knee contusion. She still having medially based pain, more over the medial femoral condyle medial joint line, but also somewhat over the pes anserine region. She has not had any injections. She has tried a short hinged brace which sometimes seems to make her more uncomfortable. She has not had any formal physical therapy. Occasionally the knee feels unstable. She had some swelling around the time of the contusion, but that has settled out. She denies radiating pain to the hip or ankle. 07/13/2022 ([facility]): Right knee PMM, chondroplasty notch. Intact ALCR but not well vascularized. PRIOR DALJIT:Patient is a 37-year-old female who presents today for follow-up of right knee pain. She has made improvement since her last visit. Has been doing home exercises and walking. Unfortunately, she still has episodes where she feels her knee gives out. Episodes of pain improve on their own. Pain is primarily in the medial part of her knee. Prior 12/11/2022:Patient is a pleasant 37-year-old female known to Dr. Jimenez 5 months postop who had a new injury. She slipped on ice and was concerned she had a reinjury. Fortunately, she has been making progress since her last visit. Her swelling has decreased with only slight discomfort. She still has pain with specific movements, but feels she is making significant progress.Prior SB 11/20/22The patient is now 4 months post-op. She is here for a new injury. She was doing well until she slipped and fell on ice on 11/15/2022. She recalls going up in the air, coming down and striking the anterior aspect of her right knee. She developed swelling and bruising. She had a fairly significant abrasion over the anterior knee which continues to heal. Symptoms are slowly improving but she is still fairly uncomfortable, particularly over the medial knee. She denies radiating pain to the hip or ankle. She rates her pain between a 3 to a 7 on a 10 point scale.??PRIOR:She is doing well. She feels she is making good progress with her home exercise program. She notes occasional medial discomfort, but this is not all the time. She perhaps notices it most consistently on stairs. She denies any swelling or instability. She feels she is substantially better with regards to symptoms as compared to before surgery. Jhony Jimenez MD [address], [place], [address], [place] [facility] 03/26/2023 09:45:45 05/22/2023 text/html Carmella presents t he office today to follow-up on her ongoing right knee pain. She reports she feels improved since her last visit. Her pain is down to a 3/10 on average. Well controlled with oegg-fii-vlepaeb anti-inflammatories and icing as needed. She has been walking at least once daily with minimal difficulty. Denies any significant swelling. Previous feelings of instability are much less frequent. She decided not to do physical therapy nor use the medial screen printing loader unloader brace. She is going to try a knee compression sleeve instead. Generally her pain continues to localize over the medial condyle region, at the site of her previous contusion. She notices this especially at nighttime when sleeping on her side and pressing one knee up against the other. Overall feels like she is moving the right direction and that her pain is manageable at this point. PRIOR:She was doing very well up until she had the knee contusion. She still having medially based pain, more over the medial femoral condyle medial joint line, but also somewhat over the pes anserine region. She has not had any injections. She has tried a short hinged brace which sometimes seems to make her more uncomfortable. She has not had any formal physical therapy. Occasionally the knee feels unstable. She had some swelling around the time of the contusion, but that has settled out. She denies radiating pain to the hip or ankle. 07/13/2022 ([facility]): Right knee PMM, chondroplasty notch. Intact ALCR but not well vascularized. PRIOR DALJIT:Patient is a 37-year-old female who presents today for follow-up of right knee pain. She has made improvement since her last visit. Has been doing home exercises and walking. Unfortunately, she still has episodes where she feels her knee gives out. Episodes of pain improve on their own. Pain is primarily in the medial part of her knee. Prior 12/11/2022:Patient is a pleasant 37-year-old female known to Dr. Jimenez 5 months postop who had a new injury. She slipped on ice and was concerned she had a reinjury. Fortunately, she has been making progress since her last visit. Her swelling has decreased with only slight discomfort. She still has pain with specific movements, but feels she is making significant progress.Prior SB 11/20/22The patient is now 4 months post-op. She is here for a new injury. She was doing well until she slipped and fell on ice on 11/15/2022. She recalls going up in the air, coming down and striking the anterior aspect of her right knee. She developed swelling and bruising. She had a fairly significant abrasion over the anterior knee which continues to heal. Symptoms are slowly improving but she is still fairly uncomfortable, particularly over the medial knee. She denies radiating pain to the hip or ankle. She rates her pain between a 3 to a 7 on a 10 point scale.??PRIOR:She is doing well. She feels she is making good progress with her home exercise program. She notes occasional medial discomfort, but this is not all the time. She perhaps notices it most consistently on stairs. She denies any swelling or instability. She feels she is substantially better with regards to symptoms as compared to before surgery. JODIE CASPER PA-C [address], [place], [address], [place] [facility] 05/22/2023 17:07:40 OBGyn Episode No OBEpisode recorded.
--- OUTSIDE RECORDS SUMMARY | 2024-09-05 16:48 | XMS_ITS ---
Author Name [facility] Organization Unknown History of Medication Use Medication Directions Dispensed Refills Start Date End Date Stat us neomycin-polymyxin- hydrocort 3.5 mg/mL-10,000 unit/mL-1 % ear solution INSTILL 4 DROPS INTO AFFECTED EAR(S) BY OTIC ROUTE 3 TIMES PER DAY X 5 DAYS 02/18/2023 active gabapentin 300 mg capsule 02/18/2023 active ondansetron HCl 4 mg tablet 02/18/2023 active amoxicillin 500 mg capsule 02/18/2023 completed meloxicam 7.5 mg tablet 02/18/2023 active binaxnow covid-19 ag card home test kit 02/18/2023 active oxycodone 5 mg tablet 02/18/2023 active cephalexin 500 mg capsule 02/18/2023 active Allergies Allergen Reaction Severity Comment Documented Date Source Statu s PERCOCET [facility] Problems Problem Status Onset Date Problem Type Date of Resoluti on Source Contusion of right knee active 2022-12-12 ProblemAct [facility] Pes anserinus bursitis of right knee active 2023-03-26 ProblemAct [facility] History of reconstruction of anterior cruciate ligament tear active 2023-03-25 ProblemAct [facility] Osteoarthritis of right knee joint active 2023-03-26 ProblemAct [facility] Sprain of medial collateral ligament of knee active 2022-12-12 ProblemAct [facility]
[2024-09-05 17:17] LABS: Appearance Urine Clear; Color Urine Yellow; Glucose Urine UA Negative (Negative); Leukocyte Esterase Urine Negative (Negative); Nitrite Urine Negative (Negative); PH 5.5 (5.0-9.0); Specific Gravity - Urine 1.025 (1.005-1.025); UMIC TRIGGER UA YES; Urine Blood Large (3+) (Negative); Urine Ketones Negative (Negative); Urine Protein Negative (Neg-Trace)
[2024-09-05 17:25] LABS: Bacteria Urine None Seen (None Seen); Hyaline Casts Urine 0-2 /LPF (0-2); RBC Urine 0-2 /HPF (0-2); Squamous Epithelial Cell Urine 0-2 /HPF (0-2); WBC Urine 0-5 /HPF (0-5)
== END 2024-09-05 16:36 | disposition home or self-care (01) ==
LOC: HO.LAB 16:35
PROVIDERS: Visit Provider Urology
DX: R39.9 Unspecified symptoms and signs involving the genitourinary system (principal); N39.0 Urinary tract infection, site not specified; B95.1 Streptococcus, group B, as the cause of diseases classified elsewhere
CPT/HCPCS: 81001; 87086; 87147

== ENCOUNTER 2024-09-12 14:56 | Outpatient (AMB) | payer OTHER, SELFPAY ==
--- NOTE | 2024-09-11 23:42 | A.OFFVIS_ITS ---
Intake Visit Reasons: Urodynamics Data Analytics Chief Scientist Required: No Accompanied by: Self / Same As Patient Allergies tadalafil [From Cialis] Allergy (Verified 09/12/24 15:06) Swelling From PERCOCET Adverse Reaction (Intermediate, Uncoded 09/12/24 15:06) VOMITING HPI Comments Details: 09/12/2024--here for urodynamics. Shelby was last seen in the office on 04/29/2024 by the nurse practitioner for lower urinary tract symptoms sensation of incomplete bladder emptying, feelings of incomplete bladder emptying, urinary hesitancy, bladder pressure, and urinary urgency. Interpretation: Complex uroflow was not obtained. During the filling phase there was normal sensation, sensory urgency was noted, filling bladder capacity was less than average, the patient felt that she was at capacity at 227mL and voided 221 mL. 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 EMG- Appropriate changes in the waveforms were noted through out the study. Treatment options include p.o. anticholinergics, behavioral modification, pelvic floor physical therapy, Botox bladder injection, neuromodulation. 04/29/24--Carmella is a very pleasant 38 year-old female patient of Dr. Moyer. She has a past medical history of endometriosis, thyroid disease, and asthma. She is being follow-up on today via telehealth for her irritative voiding symptoms. Of note, patient was seen approximately 6 weeks ago at which time she was started on tolterodine. In discussion with the patient today she reports very minimal improvement in lower urinary tract symptoms despite 2 mg of tolterodine as well as 4 mg of tolterodine. She continues to report feelings of incomplete bladder emptying, urinary hesitancy, bladder pressure, and urinary urgency. Previous workup has included a CT urogram as well as in office cystoscopy. Of note, patient underwent an office cystoscopy with Dr. Guero Ho on 11/08/2022 at which time cystoscopy findings within normal limits, no suspicious bladder lesions were visualized. CT urogram noting urinary tract within normal limits. She has previously trialed and failed off of oxybutynin, VESIcare, Cialis, and now tolterodine. She otherwise denies incontinence, nocturia, hematuria, dysuria, foul smelling urine, changes to urinary stream, flank pain, fever, and or chills. Discussed at length potential causes for lower urinary tract symptoms patient is experiencing. She otherwise offers no other issues or concerns at this time. 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 Information consent for procedure given to the patient. Discussed technical aspects, risks, benefits and alternatives in full. Addressed all of the patient's questions and concerns regarding the procedure. The patient demonstrated knowledge and understanding. They wish to proceed with this procedure. Preparation The patient was prepped in the usual manner. A final assembly worker was present and in the room. Genitalia was prepped with betadine solution in a sterile manner. Procedure Complex Uroflow Not obtained Cystometrogram Vaginal/rectal catheter type: vaginal First sensation at (mL): 63 mL First desire at (mL): 94 mL Strong desire to void occured at (mL): 108 mL Strong desire detrussor pressure (cm H2O): (-)3.5 Maximum fill (mL): 227 mL Voided with max detrussor pressure of (cm H2O): 15 Maximum flow rate (mL/second): 19 mL/s Prep: The patient was prepped in the usual manner. A final assembly worker was present and in the room. Genitalia was prepped with betadine solution in a sterile manner. 65741-Ukumdqwaxybvih w/ PRIVACY DIRECTOR 87248-Uttw/Urinary Muscle Study 84218-Whnad-Vxqxfcsit Pressure Test Procedure code (CPT) selection complete Office Meds nitrofurantoin monohydrate/macrocrystals 100 mg capsule Performing Provider: Buzz Dasilva MD Performing Location: [facility] Administered by: Naif Jc LPN on 09/12/24 15:07 Dose Route Admin Location Dispensed Lot Number Expiration Date NDC Partner Marketing Intern 100 mg PO 1 cap Assessment & Plan Assessment & Plan (1) Urinary urgency: Code(s): R39.15 - Urgency of urination Category: Medical (2) Detrusor overactivity: Code(s): N32.81 - Overactive bladder Category: Medical Plan Treatment options include p.o. anticholinergics, behavioral modification, pelvic floor physical therapy, Botox bladder injection, neuromodulation. Orders: Orders AMB Urodynamics Studies 09/12/24 R39.9 - Unspecified symptoms and signs inv olving the genitourinary system, N39.0 - Urinary tract infection, site not specified, R31.29 - Other microscopic hematuria, R10.2 - Pelvic and perineal pain Patient Instructions: The patient had an opportunity to ask questions regarding treatment plan. The patient expressed understanding and agreement with the above treatment plan. The patient is aware they should contact our office by phone for worsening of their current condition or the appearance of new symptoms. Compliance is encouraged with any medications and followup testing that is ordered. It is a privilege to be allowed the opportunity to participate in the urologic care of your patient. If you have any questions or concerns regarding treatment for the above conditions please do not hesitate to contact me. The office telephone contact is [phone]. This note is constructed in part using voice recognition software. While every effort has been made to ensure accuracy production control technologist errors may have been included. Yours sincerely, Buzz Dasilva MD Coding Level of Care Code Procedure Only Diagnoses Urinary urgency R39.15 Detrusor overactivity N32.81 CPT Codes Urodynamic Studies - CPT: 29246-Rnkvwuspsvkrfs w/ PRIVACY DIRECTOR ([id number]) Urodynamic Studies - CPT: 13798-Vslt/Urinary Muscle Study ([id number]) Urodynamic Studies - CPT: 91885-Nuabn-Gshfyfbis Pressure Test ([id number])
== END 2024-09-12 15:36 | disposition home or self-care (01) ==
PROVIDERS: Visit Provider Urology
DX: R39.9 Unspecified symptoms and signs involving the genitourinary system (principal); N39.0 Urinary tract infection, site not specified; R31.29 Other microscopic hematuria; R10.2 Pelvic and perineal pain
CPT/HCPCS: 51728; 51741; 51784; 51797

== ENCOUNTER → 2024-09-12 14:56 | Outpatient (BNVA) | payer OTHER, SELFPAY | PROVIDERS: Visit Provider Urology | DX: R39.15 Urgency of urination (principal); N32.81 Overactive bladder; R39.14 Feeling of incomplete bladder emptying | CPT/HCPCS: 51728; 51741; 51784; 51797 ==

== ENCOUNTER 2024-09-29 16:53 | Outpatient (AMB) | payer OTHER, SELFPAY ==
--- NOTE | 2024-09-29 16:53 | A.OFFVIS_ITS ---
Intake Visit Reasons: discuss treatment options Intake Note: Patient presents for tele visit to discuss treatment options Urology Medications: Gemtesa Blood thinner: none Calender Supervisor Required: No Accompanied by: Self / Same As Patient Allergies tadalafil [From Cialis] Allergy (Verified 09/29/24 16:54) Swelling From PERCOCET Adverse Reaction (Intermediate, Uncoded 09/29/24 16:54) VOMITING Medication List - Last Reconciled 09/29/24 by Buzz Dasilva MD levonorgestrel-ethinyl estrad 0.15-0.03 mg 1 tab PO DAILY 28 days vibegron (Gemtesa) 75 mg PO DAILY 30 days HPI Comments Details: 09/29/24--Carmella is currently on gemtesa which helps with the strong urge and she has less sensation of bladder pressure and bladder spasms. She still has episodes of urge incontinence, and goes freequently q 1-2 hrs. Failed multiple anticholinergics, detrol, oxybutynin, vesicare, discussed botox bladder injection. I have discussed risks to include but not limited to muscle weakness, hematuria, UTI, urinary retention, need to repeat procedure for sustained efficacy. Review of chart: 09/12/2024--here for urodynamics. Shelby was last seen in the office on 04/29/2024 by the nurse practitioner for lower urinary tract symptoms sensation of incomplete bladder emptying, feelings of incomplete bladder emptying, urinary hesitancy, bladder pressure, and urinary urgency. Interpretation: Complex uroflow was not obtained. During the filling phase there was normal sensation, sensory urgency was noted, filling bladder capacity was less than average, the patient felt that she was at capacity at 227mL and voided 221 mL. 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 EMG- Appropriate changes in the waveforms were noted through out the study. Treatment options include p.o. anticholinergics, behavioral modification, pelvic floor physical therapy, Botox bladder injection, neuromodulation. 04/29/24--Carmella is a very pleasant 38 year-old female patient of Dr. Moyer. She has a past medical history of endometriosis, thyroid disease, and asthma. She is being follow-up on today via telehealth for her irritative voiding symptoms. Of note, patient was seen approximately 6 weeks ago at which time she was started on tolterodine. In discussion with the patient today she reports very minimal improvement in lower urinary tract symptoms despite 2 mg of tolterodine as well as 4 mg of tolterodine. She continues to report feelings of incomplete bladder emptying, urinary hesitancy, bladder pressure, and urinary urgency. Previous workup has included a CT urogram as well as in office cystoscopy. Of note, patient underwent an office cystoscopy with Dr. Guero Ho on 11/08/2022 at which time cystoscopy findings within normal limits, no suspicious bladder lesions were visualized. CT urogram noting urinary tract within normal limits. She has previously trialed and failed off of oxybutynin, VESIcare, Cialis, and now tolterodine. She otherwise denies incontinence, nocturia, hematuria, dysuria, foul smelling urine, changes to urinary stream, flank pain, fever, and or chills. Discussed at length potential causes for lower urinary tract symptoms patient is experiencing. She otherwise offers no other issues or concerns at this time. 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 Sexual orientation: Straight/Heterosexual Gender identity: Female Female Reproductive History Menstrual Age of Menarche: 11 Review of Systems Const All systems reviewed & are unremarkable except as noted in HPI and below Reports no additional complaints Eyes Reports no additional complaints ENT Reports no additional complaints Card Reports no additional complaints Resp Reports no additional complaints GI Reports no additional complaints Reports as per HPI Musc Reports no additional complaints Skin/Breast Reports system reviewed and no additional complaints, except as documented Neuro Reports no additional complaints Psych Reports no additional complaints Endo Reports no additional complaints Justin/Lymph Reports no additional complaints Aller/Immun Reports no additional complaints Telehealth Telehealth Telehealth Platform: Interactive Investor Location of provider rendering services: practice address Location of patient: address on file Patient Identification confirmed using: Name, : Yes Telehealth method: video Patient verbally consented to treatment: Yes Patient verbally consented to billing insurance company: Yes Patient informed of any privacy concerns related to visit: Yes Assessment & Plan Assessment & Plan (1) Urinary urgency: Code(s): R39.15 - Urgency of urination Category: Medical (2) Detrusor overactivity: Code(s): N32.81 - Overactive bladder Category: Medical (3) OAB (overactive bladder): Code(s): N32.81 - Overactive bladder Category: Medical Plan Failed multiple anticholinergics, detrol, oxybutynin, vesicare, on gemtesa still urinary freq q 1-2 hrs and urgen incontinence. Discussed botox bladder injection. Patient Instructions: The patient had an opportunity to ask questions regarding treatment plan. The patient expressed understanding and agreement with the above treatment plan. The patient is aware they should contact our office by phone for worsening of th eir current condition or the appearance of new symptoms. Compliance is encouraged with any medications and followup testing that is ordered. It is a privilege to be allowed the opportunity to participate in the urologic care of your patient. If you have any questions or concerns regarding treatment for the above conditions please do not hesitate to contact me. The office telephone contact is [phone]. This note is constructed in part using voice recognition software. While every effort has been made to ensure accuracy bowl sander errors may have been included. Yours sincerely, Buzz Dasilva MD Coding Level of Care Code Tele Est Pt Level 4 (94566) Diagnoses Urinary urgency R39.15 Detrusor overactivity N32.81 OAB (overactive bladder) N32.81
== END 2024-09-29 16:55 | disposition home or self-care (01) ==
LOC: HO.HUSH 16:53
PROVIDERS: Visit Provider Urology
DX: R39.15 Urgency of urination (principal); N32.81 Overactive bladder
CPT/HCPCS: 99214

== ENCOUNTER 2024-12-05 14:35 | Outpatient (AMB) | payer OTHER, SELFPAY ==
--- NOTE | 2024-12-05 14:39 | A.OFFVIS_ITS ---
Intake Visit Reasons: Botox (100units) Intake Note: Patient is present for BOTOX 100 UNITS Urology Medication:NONE Antibiotic Allergy:NONE Blood Thinner:NONE Heel Seat Flap Stapler Required: No Allergies tadalafil [From Cialis] Allergy (Verified 12/05/24 14:40) Swelling From PERCOCET Adverse Reaction (Intermediate, Uncoded 12/05/24 14:40) VOMITING Medication List - Last Reconciled 12/05/24 by Buzz Dasilva MD levonorgestrel-ethinyl estrad 0.15-0.03 mg 1 tab PO DAILY 28 days HPI Comments Details: 12/05/24--Here for Botox bladder injection. She stateds she stopped gemtesa, because she was getting bloated. Carmella is a 39-year-old female presenting with symptoms of overactive bladder. She has been experiencing persistent urinary urgency that significantly impacts her quality of life. These symptoms have led to the decision to administer a Botox injection as a management strategy. Previously, the patient tried pha rmacologic interventions without sufficient relief. There have been no frequent urinary tract infections reported, although monitoring for such complications is part of her follow-up care. Urinary Symptoms Review - Symptoms of overactive bladder, including urinary urgency. - No mention of frequency of urination during the visit. - The absence of reported incontinence frequency or specific triggers. - Previous management involved pharmacologic treatment, but details are not specified. 09/29/24--Carmella is currently on gemtesa which helps with the strong urge and she has less sensation of bladder pressure and bladder spasms. She still has episodes of urge incontinence, and goes freequently q 1-2 hrs. Failed multiple anticholinergics, detrol, oxybutynin, vesicare, discussed botox bladder injec tion. I have discussed risks to include but not limited to muscle weakness, hematuria, UTI, urinary retention, need to repeat procedure for sustained efficacy. 09/12/2024--here for urodynamics. Shelby was last seen in the office on 04/29/2024 by the nurse practitioner for lower urinary tract symptoms sensation of incomplete bladder emptying, feelings of incomplete bladder emptying, urinary hesitancy, bladder pressure, and urinary urgency. Interpretation: Complex uroflow was not obtained. During the filling phase there was normal sensation, sensory urgency was noted, filling bladder capacity was less than average, the patient felt that she was at capacity at 227mL and voided 221 mL. 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 EMG- Appropriate changes in the waveforms were noted through out the study. Treatment options include p.o. anticholinergics, behavioral modification, pelvic floor physical therapy, Botox bladder injection, neuromodulation. 04/29/24--Carmella is a very pleasant 38 year-old female patient of Dr. Moyer. She has a past medical history of endometriosis, thyroid disease, and asthma. She is being follow-up on today via telehealth for her irritative voiding symptoms. Of note, patient was seen approximately 6 weeks ago at which time she was started on tolterodine. In discussion with the patient today she reports very minimal improvement in lower urinary tract symptoms despite 2 mg of tolterodine as well as 4 mg of tolterodine. She continues to report feelings of incomplete bladder emptying, urinary hesitancy, bladder pressure, and urinary urgency. Previous workup has included a CT urogram as well as in office cystoscopy. Of note, patient underwent an office cystoscopy with Dr. Guero Ho on 11/08/2022 at which time cystoscopy findings within normal limits, no suspicious bladder lesions were visualized. CT urogram noting urinary tract within normal limits. She has previously trialed and failed off of oxybutynin, VESIcare, Cialis, and now tolterodine. She otherwise denies incontinence, nocturia, hematuria, dysuria, foul smelling urine, changes to urinary stream, flank pain, fever, and or chills. Discussed at length potential causes for lower urinary tract symptoms patient is experiencing. She otherwise offers no other issues or concerns at this time. 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 Sexual orientation: Straight/Heterosexual Gender identity: Female Female Reproductive History Menstrual Age of Menarche: 11 Review of Systems Const All systems reviewed & are unremarkable except as noted in HPI and below Reports no additional complaints Eyes Reports no additional complaints ENT Reports no additional complaints Card Reports no additional complaints Resp Reports no additional complaints GI Reports no additional complaints Reports as per HPI Musc Reports no additional complaints Skin/Breast Reports system reviewed and no additional complaints, except as documented Neuro Reports no additional complaints Psych Reports no additional complaints Endo Reports no additional complaints Justin/Lymph Reports no additional complaints Aller/Immun Reports no additional complaints Office Procedures Cystoscopy Consent Discussed risk and benefit or proposed procedure with the patient. Information consent for procedure given to the patient. Discussed technical aspects, risks, benefits and alternatives in full. Addressed all of the patient's questions and concerns regarding the procedure. The patient demonstrated knowledge and understanding. They wish to proceed with this procedure. Preparation The patient was prepped in the usual manner. A trustee of estate was present and in the room. Genitalia was prepped with betadine solution in a sterile manner. Lidocaine Jelly 2% was placed into the urethra and 16Fr flexible Olympus cystoscope was inserted into the meatus after adequate lubrication. Procedure PROCEDURE: CYSTOSCOPY, BLADDER BOTOX INJECTION 100 UNITS Cystoscopic injection of botox. The Botox 100 units was mixed with 10 cc of normal saline and transurethral injections were placed into the posterior wall of the bladder. 0.5cc to 1.0 cc placed at each injection site. Patient prepped iodine, then catheterized with 12 fr straight cath used to drain bladder and instill botox cocktail: 20 mls bupivicaine 5 mls lidocaine 2% 2 lidocaine urojets 15 minute timer set after botox cocktail Botox 100 units reconstituted with 0.9% sodium chloride preservative free - to be injected by Dr. Ho Patient given 500mg naproxen, 500mg ciprofloxacin and 100mg pyridium. 17662 - Botox Injection, urethra or bladder DISPOSABLE SCOPE URO-N NEEDLE SCOPE Procedure code (CPT) selection complete Office Meds lidocaine HCl 2 % mucosal jelly in applicator Performing Provider: Buzz Dasilva MD Performing Location: [facility] Administered by: Naif Jc LPN on 12/05/24 14:57 Dose Route Admin Location Dispensed Lot Number Expiration Date [facility] [employer] Director 10 mL intra-urethral 20 mL onabotulinumtoxinA 100 unit solution for injection Performing Provider: Buzz Dasilva MD Performing Location: [facility] Administered by: Naif Jc LPN on 12/05/24 14:57 Dose Route Admin Location Dispensed Lot Number Expiration Date [facility] [employer] Director 100 unit transurethral 100 units [id number] 01/22/27 3546-8992-35 ALLERGAN/BOTOX Results AMB Urinalysis, Automated UA Leukoctes 0 Aleshia/uL Last Edit by SHAYY Mcgraw on 12/05/24 14:51 UA Nitrite Negative Last Edit by SHAYY Mcgraw on 12/05/24 14:51 UA Urobilinogen 3.5 mg/dL Last Edit by SHAYY Mcgraw on 12/05/24 14:5 1 UA Protein 15 mg/dL Last Edit by SHAYY Mcgraw on 12/05/24 14:51 UA pH 6.0 Last Edit by SHAYY Mcgraw on 12/05/24 14:51 UA Blood 0 Sudeep/uL Last Edit by SHAYY Mcgraw on 12/05/24 14:51 UA Specific [place] 1.030 Last Edit by SHAYY Mcgraw on 12/05/24 14: 51 UA Ketone Negative Last Edit by SHAYY Mcgraw on 12/05/24 14:51 UA Bilirubin 0 mg/dL Last Edit by SHAYY Mcgraw on 12/05/24 14:51 UA Glucose 0 mg/dL Last Edit by SHAYY Mcgraw on 12/05/24 14:51 Results Reviewed Results Reviewed: Laboratory Last Values Urine pH (Auto) 6.0 12/05/24 14:51 Specific [place] (Auto) 1.030 12/05/24 14:51 Urine Protein (Auto) 15 mg/dL 12/05/24 14:51 Glucose (UA)(Auto) 0 mg/dL 12/05/24 14:51 Urine Ketones (Auto) Negative 12/05/24 14:51 Urine Blood (Auto) 0 Sudeep/uL 12/05/24 14:51 Urine Nitrite (Auto) Negative 12/05/24 14:51 Urine Bilirubin (Auto) 0 mg/dL 12/05/24 14:51 Urine Urobilinogen (Auto) 3.5 mg/dL 12/05/24 14:51 Leukocyte Esterase (Auto) 0 Aleshia/uL 12/05/24 14:51 Assessment & Plan Assessment & Plan (1) Urinary urgency: Code(s): R39.15 - Urgency of urination Category: Medical (2) Detrusor overactivity: Code(s): N32.81 - Overactive bladder Category: Medical (3) OAB (overactive bladder): Code(s): N32.81 - Overactive bladder Category: Medical Plan Discussion Notes During my discussion with the patient, I reviewed the plan to manage her overactive bladder by administering 100 units of Botox. We discussed potential risks, including urinary retention and the rare occurrence of urinary tract infections (UTIs). I emphasized the importance of monitoring post-procedural symptoms and advised follow-ups in two to three weeks to perform a bladder scan and ensure proper bladder emptying. We also reviewed the need to return sooner if urinary symptoms worsen or do not improve, indicating possible adverse outcomes or complications. Options for UTI prevention, post-procedure antibiotic prophylaxis, and the use of Pyridium for urinary burning were also presented. The patient consented to the treatment plan and understood the discussions re garding the procedure and its follow-ups. Additionally, I will re-evaluate her condition in three months to assess the long-term effectiveness of the treatment. Orders: Orders AMB Urinalysis Automated Today Z13.9 - Encounter for screening, unspecified AMB Cystoscopy Today N32.81 - Overactive bladder Medications: New sulfamethoxazole-trimethoprim 800-160 mg (Bactrim DS) 1 tab PO BID 6 tabs 0RF phenazopyridine (Pyridium) 100 mg PO TID PRN 9 tabs 1RF urinary burning/pain Patient Instructions: Patient Instructions - Take Bactrim DS twice daily for three days. - Use Pyridium as needed if you experience urinary burning. - Monitor for any new or worsening symptoms, especially urinary retention. - Follow up with nursing in two to three weeks for a bladder scan. - Return for a follow-up appointment in three months. - Seek earlier medical attention if urinary symptoms worsen or don?t improve. Patient was informed and verbally consented to the use of an ambient scribe for clinic note documentation during this visit. The patient had an opportunity to ask questions regarding treatment plan. The patient expressed understanding and agreement with the above treatment plan. The patient is aware they should contact our office by phone for worsening of their current condition or the appearance of new symptoms. Compliance is encouraged with any medications and followup testing that is ordered. It is a privilege to be allowed the opportunity to participate in the urologic care of your patient. If you have any questions or concerns regarding treatment for the above conditions please do not hesitate to contact me. The office telephone contact is [phone]. This note is constructed in part using voice recognition software. While every effort has been made to ensure accuracy cnc specialist errors may have been included. Yours sincerely, Buzz Dasilva MD Coding Level of Care Code Procedure Only Diagnoses Urinary urgency R39.15 Detrusor overactivity N32.81 OAB (overactive bladder) N32.81 CPT Codes Cystoscopy - CPT: 19230 - Botox Injection, urethra or bladder ([id number])
--- OUTSIDE RECORDS SUMMARY | 2024-12-05 16:08 | XMS_ITS | Data Portability ---
Author Organization [place] [facility] [place] Address [address] [place] [address] Assessment Encounter Date Assessment Date Assessment LastModified [...] assess her progress, sooner for any complications. [email or web address] Not available 12/12/2022 17:17:04 02/12/2023 02/12/2023 Carmella [...] assess her progress, sooner for any complications. [email or web address] Not available 02/15/2023 10:57:18 03/26/2023 03/26/2023 Persistent right knee medially based pain following a contusion. History of an arthroscopy back in June 2022 after she did very well. I reviewed treatment options with her. This included a discussion regarding observation, consideration of an intra-articular injection, physical therapy, consideration of the medial long wall mining machine tender brace. She is apprehensive about an injection, decided on trying physical therapy. We will request authorization for the medial long wall mining machine tender brace. If no improvement consider the injection [...] exercises. Icing protocol reviewed. She can use [id number] anti-inflammator ies and Tylenol as needed with [...] injection, physical therapy, consideration of the medial long wall mining machine tender brace. She is apprehensive about an injection, decided on trying physical therapy. We will request authorization for the medial long wall mining machine tender brace. If no improvement consider the injection [...] reconstruct ion of anterior cruciate ligament tear 012208079 Active [address], [place], [address], [place] [facility] 3 09:52:40 Pes anserinus bursitis of right knee 4860120488082 109 Active [address], [place], [address], [place] [facility] 3 09:45:30 Osteoarthri tis of right knee joint 4486660881670 00 Active [address], [place], [address], [place] [facility] 3 09:45:32 Contusion of right knee 4146541741888 9104 Active [address], [place], [address], [place] [facility] 3 17:16:18 Sprain of medial collateral ligament of knee 76890797 Active [address], [place], [address], [place] [facility] 3 17:16:26 Problem Notes None recorded. Medical Equipment None Reported. Allergies Allergen ID Allergen Name Allergen Category Reaction Reaction Severity Criticality Documentation Date Start Date Code Code System Note Provider Name and Address Organization Details Recorded Time 555 acetamino phen / oxycodone medicatio n Not available Not available Not available 12/11/2022 74486 3 RxNorm Christine George null, [facility] 15:45:23 Medications Name Sig Start [...] Updated DateTime 12/11/2022 160.02 cm 27.5 kg/m2 45463.82 g Christine George [facility], [facility] 12/11/2022 15:45:51 Date Recorded Body height Body mass index (BMI) Body weight Provider Name and Address Organization Details Last Updated DateTime 02/12/2023 160.02 cm 27.5 kg/m2 89206.82 g Sergio Gar [facility] 02/12/2023 15:06:29 Date Recorded Body height Body mass index (BMI) Body weight Provider Name and Address Organization Details Last Updated DateTime 03/26/2023 160.02 cm 27.5 kg/m2 [address] [facility] 03/26/2023 09:04:15 Date Recorded Body height Body mass index (BMI) Body weight Provider Name and Address Organization Details Last Updated DateTime 05/22/2023 160.02 cm 27.5 kg/m2 [address]31.[address] [facility] 05/22/2023 16:26:10 Social History Question Answer Notes LastModified by Organizat ion Details LastModified Time Tobacco Smoking Status Never Smoker Christine George paty, [place] [facility] 12/11/2022 15:46:01 What Is Your Level Of Alcohol Consumption? Occasional [email or web address] Information not available 12/11/2022 Do You Use Any Illicit Or Recreational Drugs? No [email or web address] Information not available 12/11/2022 Do You Or Have You Ever Used Any Other Forms Of Tobacco Or Nicotine? No [email or web address] Information not available 12/11/2022 Sex: Unknown Functional Status None recorded. Mental Status None recorded. Family History Relationship Description Onset Age of this Age Resolved Age Notes LastModified by Organization Details LastModified Time Father Diabetes mellitus [email or web address] Not available 2022 15:46:31 Mother Diabetes mellitus [email or web address] Not available 2022 15:46:35 Mother Heart disease [email or web address] Not available 16:26:03 Medical History Condition Response Anemia Y Asthma Y Gynecological HistoryNo gynecological history recorded. Obstetrics History GPAL:G 0 P 0 0 0 0 Past Encounters Encounter ID Performer Location Encounter Start Date Encounter Closed Date Diagnosis/Indication Diagnosis SNOMED-CT Code Diagnosis ICD10 Code Diagnosis Note [id number] MD FABI Bingham [address] [place] [address] 12/11/2022 15:24:09 12/11/2022 16:12:06 Contusion of right knee 0448847434 2041638 S80.01XD Sprain of medial collateral ligament of knee 25841495 S83.411D History of reconstruction of anterior cruciate ligament tear 943586072 Z98.890 [id number] MD FABI Bingham [place] [address] [facility] [address] [place] [address] 02/12/2023 15:05:06 02/12/2023 15:34:39 Sprain of medial collateral ligament of knee 81559539 S83.411D Contusion of right knee 8538339698 5262471 S80.01XD History of reconstruction of anterior cruciate ligament tear 427627146 Z98.890 [id number] MD FABI Bingham [place] [address] [address] 03/26/2023 09:01:45 03/26/2023 09:30:09 Contusion of right knee 1035765260 7484132 S80.01XD Sprain of medial collateral ligament of knee 71943579 S83.411D History of reconstruction of anterior cruciate ligament tear 071789567 Z98.890 Osteoarthr itis of right knee joint 9297521008 00362 M17.11 Pes anseri nus bursitis of right knee 0687301293 912164 M70.51 [id number] MD FABI [address] [facility] [place] [address] 05/22/2023 16:21:35 05/22/2023 16:39:39 History of reconstruction of anterior cruciate ligament tear 688993407 Z98.890 Contusion of right knee 4315956010 2427324 S80.01XD Sprain of medial collateral ligament of knee 53906646 S83.411D Osteoarthr itis of right knee joint 2244297173 69560 M17.11 Health Concerns Section Related Observation LastModified by Organization Detai ls LastModified Time None Recorded Concern Status LastModified by Organization Details LastModified Time None Recorded Advance Directives Directive None Recorded Payers Encounter Date Sequence Insurance Name Policy Number Policy Villalta Covered Member ID Villalta Member ID Guarantor Name 12/11/2022 1 [facility] [id number] Carmella Blevins [id number] Carmella Blevins 02/12/2023 1 [facility] [id number] Carmella Blevins [id number] Carmella Blevins 03/26/2023 1 [facility] [id number] Carmella Blevins [id number] Carmella Blevins 05/22/[address] [place] [address] ([facility] [id number] Carmella Blevins [id number] Carmella Blevins Notes Date Note Type Note [...] BETH LYNN PA-C [address], [place], [address], [place] [facility] 12/12/2022 17:17:31 02/12/2023 text/html Patient is [...] BETH LYNN PA-C [address], [place], [address], [place] [facility] 02/15/2023 10:58:05 03/26/2023 text/html She was [...] symptoms as compared to before surgery. Jhony Jimenze MD [address], [place], [address], [place] [facility] 03/26/2023 09:45:45 05/22/2023 text/html Carmella presents t he office today to follow-up on her ongoing right knee pain. She reports she feels improved since her last visit. Her pain is down to a 3/10 on average. Well controlled with iijl-fhz-emxrumv anti-inflammatories and icing as needed. She has been walking at least once daily with minimal difficulty. Denies any significant swelling. Previous feelings of instability are much less frequent. She decided not to do physical therapy nor use the medial long wall mining machine tender brace. She is going to try a [...] JODIE CASPER PA-C [address], [place], [address], [place] [facility] 05/22/2023 17:07:40 OBGyn Episode No OBEpisode recorded.
--- OUTSIDE RECORDS SUMMARY | 2024-12-05 16:08 | XMS_ITS | Clinical Summary ---
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 Overweight (BMI 25.0-29.9) 11/26/2012 Thyroid enlarged 09/19/2011 Tonsil stone 09/11/2011 Endometriosis of pelvic peritoneum 03/23/2011 Overview (10/20/2024): Endometrioma Left ovary, endometriosis of right ovary and pelvic sidewall Treated with Lupron Depot monthly for 4 months, then progestin contraceptive Allergic rhinitis 02/09/2006 Encounters Date Type Department Care Team Description 10/23/2024 2:19 AM EST - 10/23/2024 6:43 AM EST Emergency [facility] Emergency [address] [place] [address] Luiz Rodrigez MD Right-sided abdominal pain of unknown cause (Primary Dx); Viral URI with cough Discharge Disposition: Home or Self Care from Last 3 Months Immunizations Name Administration Dates Next Due DTP 11/14/1988, 6,07/22/1984,04/30,01/24/1984 [id number] (Pentacel) 2mo to less than 5yo 11/26/1986 HPV, Quadrivalent 04/10/2008,12/03/2007,10/01/19 08 Hepatitis B Pediatric (Enger ix B; Recombivax HB) to less than 20 yo 03/31/1997,12/04/1996,11/22/1995 Influenza Quadravalent, MDCK , 0.5ml, with preservative (Flucelvax) 6mo and older 06/11/2017 Influenza trivalent, with pr eservative (Fluzone; Afluria) 6mo and older 08/01/2015,06/30/2012,07/15/2008 MMR, measles mumps and rubel la Live (Priorix; M-M-R II) 12mo and older 11/22/1995,02/20/1985 Meningococcal Polysaccharide 03/25/2002 OPV 11/14/1988, 6,04/30/1984,01/23 PPD Test 08/31/2006,03/25/2002,10/25/1984 Td Tetanus diptheria (Tdvax) 7yo and older 12/21/1997 Tdap Tetanus diptheria acell ular pertussis (Boostrix; Adacel) 7yo and older 07/15/2008 Tetanus Toxoid, Unspecified 03/27/2012 Surgical History Surgery Date Site/Laterality Comments OTHER SURGICAL HISTORY 11/24, 08/26 PROCEDURE: [place] ARTHRS AIDED ANT CRUCIATE LIGM RPR/AGMNTJ/RCNSTJ; COMMENT: ACL; right OTHER SURGICAL HISTORY 03/31 PROCEDURE: [place] OSTEOPLASTY RADIUS/ULNA SHORTENING WRIST SURGERY PROCEDURE: HISTORICAL WRIST SURGERY; COMMENT: cyst removal OTHER SURGICAL HISTORY 2008 PROCEDURE: [place] ARTHRS KNEE W/MENISCECTOMY MED&LAT W/SHAVING; COMMENT: right OTHER SURGICAL HISTORY 03/23/2011 PROCEDURE: [place] LAPS FULG/EXC OVARY VISCERA/PERITONEAL SURFACE; COMMENT: endometrioma left ovary, partial oophorectomy and cautery endometriosis TONSILLECTOMY PROCEDURE: HISTORICAL TONSILLECTOMY; COMMENT: 12/2011 CHOLECYSTECTOMY PROCEDURE: HISTORICAL CHOLECYSTECTOMY; COMMENT: 01/2012 APPENDECTOMY 04/28/2017 PROCEDURE: [place] APPENDECTOMY Medical History Medical History Date Comments Allergic rhinitis, cause unspecified DX:Allergic rhinitis, cause unspecified Personal history of urinary (tract) infection DX:Personal history of urina ry (tract) infection Varicella without mention of complication 1987 DX:Varicella without mention of complication Unspecified otitis media DX:Unsp ecified otitis media Hypertrophy of adenoids alone DX :Hypertrophy of adenoids alone 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; COMMENT: RIGHT WRIST - DR GOMEZ Bulging disc DX:Bulging disc; COMMENT: MRI 1997 - C5-6 Ruptured ovarian cyst 11/23 DX:Rupture d ovarian cyst Anemia, unspecified DX:Anemia, u nspecified Overweight (BMI 25.0-29.9) 11/26/2012 DX:Ov erweight (BMI 25.0-29.9) Kidney stone on left side 11/30/2015 DX:Kid yuliana stone on left side; COMMENT: 4 mm Non-obstructing in lower pole of kidney noted [facility] 11/24/2015 Family History Medical History Relation Name Comments Diabetes Mother Other cancer Paternal Grandfather lung Relation Name Status Comments Brother Alive 3 brothers all healthy Father Alive obese Maternal Grandfather Alive Maternal Grandmother Alive Mother Alive DM-Diet control led Paternal Grandfather Lung CA Paternal Grandmother Alive Social History Tobacco Use Types Packs/Day Years Used Date Smoking Tobacco: Never Smokeless Tobacco: Never Alcohol Use Standard Drinks/Week Comments Yes 0 (1 standard drink = 0.6 oz pur e alcohol) Comments Unknown Sex and Gender Information Value Date Recorded Sex Assigned at Female 10/22/2024 8:49 PM EST Legal Sex Female 3:36 AM EST Gender Identity Female 10/22/2024 8:49 PM EST Sexual Orientation Choose not to disclose 2024 8:51 PM EST Obstetrics History Last Filed Vital Signs Vital Sign Reading Time Taken Comments Blood Pressure 134/82 10/23/2024 2:19 AM EST Pulse 93 10/23/2024 2:19 AM EST Temperature 37.7 ??C (99.9 ??F) 10/23/2024 2:19 AM ES T Respiratory Rate 18 10/23/2024 2:19 AM EST Oxygen Saturation 97% 10/23/2024 2:19 AM EST Inhaled Oxygen Concentration - - Weight 79.4 kg (175 lb) 10/22/2024 6:50 PM EST Height 160 cm (5' 3 ) 10/22/2024 6:50 PM EST Body Mass Index 31 10/22/2024 6:50 PM EST Plan of Treatment Health Maintenance Due Date Last Done Comments Breast Cancer Screening 1983 DTaP,Tdap,and Td Vaccines (8 - Td or Tdap) 07/15/2018 07/15/2008, 12/21/1997, 11/14/1988, Additional history exists Cervical Cancer Screening: Pap Smear 02/03/2020 02/02/2017, 02/02/2017 Depression Screening 08/27/2022 HIV Screening 08/27/2022 Hepatitis C Screening 08/27/2022 Social Influencers of Health Screening 08/27/2022 COVID-19 Vaccine ( season) 2024 07/21/2021 Influenza Vaccine (#1) 2024 0, 07/22/2019, 06/11/2017, Additional history exists HIB Vaccines Completed 11/26/1986, 11/26/1986 IPV Vaccines Completed 11/14/1988, 01/1987, 1985, Additional history exists MMR Vaccines Completed 11/22/1995, 02/20/1985 Hepatitis B Vaccines Completed 03/31/1997, 12/04/1996, 11/22/1995 Meningococcal ACWY Vaccine Aged Out 03/25/2002 N o longer eligible based on patient's age to complete this topic HPV Vaccines Completed 04/10/2008, 11/22, 10/01/2007 Hepatitis A Vaccines Aged Out No long er eligible based on patient's age to complete this topic Meningococcal B Vacine Aged Out No lo nger eligible based on patient's age to complete this topic Pneumococcal Vaccine: Pediatrics (0 to 5 Years) and At-Risk Patients (6 to 64 Years) Aged Out No longer eligible based on patient's age to complete this topic RSV Immunization Patients Under 20 months Aged Out No longer eligible based on patient's age to complete this topic Varicella Vaccines Aged Out No longer eligible based on patient's age to complete this topic Procedures Procedure Name Priority Date/Time Associated Diagnosis Comments CT ABDOMEN PELVIS W CONTRAST STAT 10/23/2024 4:57 AM EST XR CHEST 2 VIEWS STAT 10/23/2024 4:33 AM EST RESPIRATORY VIRUS PANEL MOLECULAR STUDY STAT 10/23/2024 4:27 AM EST CBC WITH AUTO DIFFERENTIAL STAT 10/22/2024 8:25 PM EST LIPASE STAT 10/22/2024 8:25 PM EST COMPREHENSIVE METABOLIC PANEL STAT 10/22/2024 8:25 PM EST CBC AND DIFFERENTIAL STAT 10/22/2024 8:25 PM EST US PELVIS NON OB COMPLETE W TRANSVAGINAL STAT 10/22/2024 7:51 PM EST VANESSA URINE CULTURE TUBE STAT 10/22/2024 7:07 PM EST URINALYSIS WITH REFLEX MICROSCOPIC AND CULTURE STAT 10/22/2024 7:07 PM EST URINALYSIS WITH REFLEX MICROSCOPIC AND CULTURE STAT 10/22/2024 7:07 PM EST CULTURE URINE STAT 10/22/2024 7:07 PM EST HM HPV Routine 02/02/2017 from Last 3 Months or Most Recently Relevant to Health Maintenance Results * CT Abdomen Pelvis w Contrast (10/23/2024 4:57 AM EST) Anatomical Region Laterality Modality Body Computed Tomogra phy 10/23/2024 5:46 AM EST Impressions 10/23/2024 5:46 AM EST 1. Mildly radiodense left ovarian cyst likely containing proteinaceous material. No evidence of hemorrhage on ultrasound. 2. Nephrolithiasis without obstructive uropathy. 3. No evidence of appendicitis. 4. Physiologic free fluid in the pelvis. This document has been electronically signed by: Zhang Roberts MD on 10/23/2024 05:46:09 Narrative 10/23/2024 5:[address] abdomen and pelvis with contrast Comparison: [place] - US PEL NON OB COMPLETE W TRANSVAGINAL - 10/22/24 19:03 EST Findings: The lung bases are clear. The patient is status post cholecystectomy. Small nonobstructing calculi are seen in the mid poles of both kidneys. There is no evidence of obstructive uropathy. The rest of the solid organs are normal. No bowel obstruction, pneumoperitoneum, or pneumatosis. There is a 3 cm mildly radiodense left ovarian cyst. A small amount of physiologic free fluid is present in the pelvis. The bones are intact. Procedure Note Zhang Roberts MD - 10/23/2024 CT abdomen and pelvis with contrast Comparison: [place] - [place] PEL NON OB COMPLETE W TRANSVAGINAL - 10/22/2518:03 EST Findings: The lung bases are clear. The patient is status post cholecystectomy. Small nonobstructing calculi are seen in the mid poles of both kidneys. There is no evidence of obstructive uropathy. The rest of the solid organs are normal. No bowel obstruction, pneumoperitoneum, or pneumatosis. There is a 3 cm mildly radiodense left ovarian cyst. A small amount of physiologic free fluid is present in the pelvis. The bones are intact. IMPRESSION: 1. Mildly radiodense left ovarian cyst likely containing proteinaceous material. No evidence of hemorrhage on ultrasound. 2. Nephrolithiasis without obstructive uropathy. 3. No evidence of appendicitis. 4. Physiologic free fluid in the pelvis. This document has been electronically signed by: Zhang Roberts MD on 10/23/2024 05:46:09 us Luiz Rodrigez MD IMG CT PROCEDURES Final Result * XR Chest 2 Views (10/23/2024 4:33 AM EST) Anatomical Region Laterality Modality Body Radiographic Radha ging 10/23/2024 9:10 AM EST Impressions 10/23/2024 9:11 AM EST No evidence of active pulmonary disease. [id number] -------- FINAL REPORT -------- Dictated By: Donald Leyva Dictated Date: 10/23/2024 09:10 ET Assigned Physician: Donald Leyva Reviewed and Electronically Signed By: Donald Leyva Signed Date: 10/23/2024 09:11 ET Workstation ID: [id number] Transcribed By: Self Edit Transcribed Date: 10/23/2024 09:10 ET Narrative 10/23/2024 9:11 AM EST INDICATION: Cough FINDINGS: Two views of the chest were obtained. There are no prior studies available for comparison. Lung sabillon are well inflated without infiltrates or effusions. Cardiomediastinal silhouette is normal in size and shape. Bony structures are within normal limits for the patient's age. Procedure Note Donald Leyva MD - 10/23/2024 INDICATION: Cough FINDINGS: Two views of the chest were obtained. There are no prior studiesavailable for comparison. Lung sabillon are well inflated without infiltrates or effusions. Cardiomediastinal silhouette is normal in size and shape. Bony structures are within normal limits for the patient's age. IMPRESSION: No evidence of active pulmonary disease. [id number] -------- FINAL REPORT -------- Dictated By: Donald Leyva Dictated Date: 10/23/2024 09:10 ET Assigned Physician: Donald Leyva Reviewed and Electronically Signed By: Donald Leyva Signed Date: 10/23/2024 09:11 ET Workstation ID: [id number] Transcribed By: Self Edit Transcribed Date: 10/23/2024 09:10 ET Luiz Rodrigez MD IMG XR PROCEDURES Final Result * Respiratory virus panel molecular study (10/23/2024 4:27 AM EST) [facility] Adenovirus Detection by PCR Not Detected Not Detected LAB MICROBIOLOGY METHOD 10/23/2024 5:34 AM [facility] Influenza A PCR Not Detected Not Detected LAB MICROBIOLOGY METHOD 10/23/2024 5:34 AM [facility] Influenza B PCR Not Detected Not Detected LAB MICROBIOLOGY METHOD 10/23/2024 5:34 AM [facility] Coronavirus 229E Not Detected Not Detected LAB MICROBIOLOGY METHOD 10/23/2024 5:34 AM [facility] Coronavirus HKU1 Not Detected Not Detected LAB MICROBIOLOGY METHOD 10/23/2024 5:34 AM [facility] Coronavirus OC43 Not Detected Not Detected LAB MICROBIOLOGY METHOD 10/23/2024 5:34 AM [facility] Coronavirus NL63 Not Detected Not Detected LAB MICROBIOLOGY METHOD 10/23/2024 5:34 AM [facility] Parainfluenza Virus 1 Not Detected Not Detected LAB MICROBIOLOGY METHOD 10/23/2024 5:34 AM [facility] Parainfluenza Virus 2 Not Detected Not Detected LAB MICROBIOLOGY METHOD 10/23/2024 5:34 AM [facility] Parainfluenza Virus 3 Not Detected Not Detected LAB MICROBIOLOGY METHOD 10/23/2024 5:34 AM [facility] Parainfluenza Virus 4 Not Detected Not Detected LAB MICROBIOLOGY METHOD 10/23/2024 5:34 AM [facility] RSV PCR Not Detected Not Detected LAB MICROBIOLOGY METHOD 10/23/2024 5:34 AM [facility] Human Metapneumovirus A and B Not Detected Not Detected LAB MICROBIOLOGY METHOD 10/23/2024 5:34 AM [facility] Rhinovirus/Entero virus Not Detected Not Detected LAB MICROBIOLOGY METHOD 10/23/2024 5:34 AM [facility] Bordetella pertussis Not Detected Not Detected LAB MICROBIOLOGY METHOD 10/23/2024 5:34 AM EST [facility] Bordetella parapertussis Not Detected Not Detected LAB MICROBIOLOGY METHOD 10/23/2024 5:34 AM [facility] Mycoplasma pneumo by PCR Not Detected Not Detected LAB MICROBIOLOGY METHOD 10/23/2024 5:34 AM EST [facility] Chlamydia pneumoniae Not Detected Not Detected LAB MICROBIOLOGY METHOD 10/23/2024 5:34 AM [facility] SARS COV-2 Not Detected Not Detected LAB MICROBIOLOGY METHOD 10/23/2024 5:34 AM [facility] Swab Nasopharyngeal structure / Unknown Non-blood Collection / Unknown 10/23/2024 4:27 AM EST 10/23/2024 4:34 AM EST [facility] - 10/23/2024 5:34 AM EST Testing was performed using the Mem[employer]ight Respiratory Pathogen PCR Assay. All results must be correlated with the clinical findings. Results should not be used as the sole basis for diagnosis. False Negative results may occur from the presence of sequence variants in the region targeted by the assay or the presence of inhibitors. Results may be affected by concurrent antiviral/antimicrobial therapy or levels of organisms that are below the limit of detection. us Luiz Rodrigez MD LAB MICROBIOLOGY - GENERAL ORD ERABLES Final Result [facility] [address] [place] [address], * (ABNORMAL) CBC auto differential (10/22/2024 8:25 PM EST) WBC 5.7 4.8 - 10.8 K/mcL LAB HEMETOLOGY METHOD 10/22/2024 8:45 PM EST [facility] RBC 4.10 3.80 - 4.80 M/mcL LAB HEMETOLOGY METHOD 10/22/2024 8:45 PM [facility] Hemoglobin 12.2 11.5 - 16.0 g/dL LAB HEMETOLOGY METHOD 10/22/2024 8:45 PM [facility] Hematocrit 37.3 35.0 - 47.0 % LAB HEMETOLOGY METHOD 10/22/2024 8:45 PM [facility] MCV 91.6 79.0 - 98.0 FL LAB HEMETOLOGY METHOD 10/22/2024 8:45 PM [facility] MCH 30.0 27.0 - 32.0 pcg LAB HEMETOLOGY METHOD 10/22/2024 8:45 PM [facility] MCHC 32.7 32.0 - 37.0 g/dL LAB HEMETOLOGY METHOD 10/22/2024 8:45 PM [facility] RDW 12.4 11.0 - 15.0 % LAB HEMETOLOGY METHOD 10/22/2024 8:45 PM [facility] Platelets 188 130 - 400 K/mcL LAB HEMETOLOGY METHOD 10/22/2024 8:45 PM [facility] MPV 10.7 7.0 - 11.0 FL LAB HEMETOLOGY METHOD 10/22/2024 8:45 PM [facility] NRBC 0.0 <1.0 % LAB HEMETOLOGY METHOD 10/22/2024 8:45 PM [facility] NRBC Absolute 0.00 <0.10 K/mcL LAB HEMETOLOGY METHOD 10/22/2024 8:45 PM [facility] Neutrophils Relative 80.7 % LAB HEMETOLOGY METHOD 10/22/2024 8:45 PM [facility] Lymphocytes Relative 10.2 % LAB HEMETOLOGY METHOD 10/22/2024 8:45 PM [facility] Monocytes Relative 7.8 % LAB HEMETOLOGY METHOD 10/22/2024 8:45 PM [facility] Eosinophils Relative 0.5 % LAB HEMETOLOGY METHOD 10/22/2024 8:45 PM EST [facility] Basophils Relative 0.4 % LAB HEMETOLOGY METHOD 10/22/2024 8:45 PM [facility] Immature Granulocytes Relative 0.4 % LAB HEMETOLOGY METHOD 10/22/2024 8:45 PM [facility] Neutrophils Absolute 4.57 1.50 - 7.00 K/mcL LAB HEMETOLOGY METHOD 10/22/2024 8:45 PM EST [facility] Lymphocytes Absolute 0.58(L) 1.00 - 5.00 K/mcL LAB HEMETOLOGY METHOD 10/22/2024 8:45 PM EST [facility] Monocytes Absolute 0.44 0.20 - 1.00 K/mcL LAB HEMETOLOGY METHOD 10/22/2024 8:45 PM [facility] Eosinophils Absolute 0.03 0.00 - 0.50 K/mcL LAB HEMETOLOGY METHOD 10/22/2024 8:45 PM EST [facility] Basophils Absolute 0.02 0.00 - 0.20 K/mcL LAB HEMETOLOGY METHOD 10/22/2024 8:45 PM EST [facility] Immature Granulocytes Absolute 0.02 0.00 - 0.03 K/mcL LAB HEMETOLOGY METHOD 10/22/2024 8:45 PM EST [facility] Blood Venous blood specimen / Unknown Venipuncture / Unknown 10/22/2024 8:25 PM EST 10/22/2024 8:36 PM EST us Jesu London MD LAB BLOOD ORDERABLES Final Res ult [facility] [address] [place] [address], * Lipase (10/22/2024 8:25 PM EST) Lipase 27 13 - 75 unit/L LAB CHEMISTRY METHOD 10/22/2024 9:03 PM [facility] Blood Venous blood specimen / Unknown Venipuncture / Unknown 10/22/2024 8:25 PM EST 10/22/2024 8:36 PM EST us Jesu London MD LAB BLOOD ORDERABLES Final Res ult [facility] [address] [place] [address], [place] [phone] * (ABNORMAL) Comprehensive metabolic panel (10/22/2024 8:25 PM EST) [facility] Sodium 139 133 - 145 mmol/L LAB CHEMISTRY METHOD 10/22/2024 9:03 PM [facility] Potassium 3.5 3.5 - 5.5 mmol/L LAB CHEMISTRY METHOD 10/22/2024 9:03 PM [facility] Chloride 108 96 - 110 mmol/L LAB CHEMISTRY METHOD 10/22/2024 9:03 PM [facility] CO2 24 21 - 32 mmol/L LAB CHEMISTRY METHOD 10/22/2024 9:03 PM [facility] Anion Gap 7 3 - 11 LAB CHEMISTRY METHOD 10/22/2024 9:03 PM [facility] Glucose 101(H) 70 - 100 mg/dL LAB CHEMISTRY METHOD 10/22/2024 9:03 PM [facility] BUN 7 5 - 25 mg/dL LAB CHEMISTRY METHOD 10/22/2024 9:03 PM [facility] Creatinine 0.67 0.50 - 1.10 mg/dL LAB CHEMISTRY METHOD 10/22/2024 9:03 PM [facility] eGFR 113 >=60 mL/min/1. 73m2 LAB CHEMISTRY METHOD 10/22/2024 9:03 PM [facility] Comment:Calculation based on the??Chronic Kidney Disease Epidemiology Collaboration (CKD-EPI) equation refit??without adjustment for race. BUN/Creatinine Ratio 10.4 LAB CHEMISTRY METHOD 10/22/2024 9:03 PM [facility] Calcium 8.7 8.5 - 10.5 mg/dL LAB CHEMISTRY METHOD 10/22/2024 9:03 PM [facility] AST (SGOT) 19 10 - 42 unit/L LAB CHEMISTRY METHOD 10/22/2024 9:03 PM [facility] ALT (SGPT) 25 10 - 60 unit/L LAB CHEMISTRY METHOD 10/22/2024 9:03 PM [facility] Alkaline Phosphatase 54 42 - 121 unit/L LAB CHEMISTRY METHOD 10/22/2024 9:03 PM [facility] Total Protein 6.2 6.0 - 8.0 g/dL LAB CHEMISTRY METHOD 10/22/2024 9:03 PM [facility] Albumin 3.6 3.2 - 5.0 g/dL LAB CHEMISTRY METHOD 10/22/2024 9:03 PM [facility] Total Bilirubin 0.4 0.0 - 1.4 mg/dL LAB CHEMISTRY METHOD 10/22/2024 9:03 PM [facility] Blood Venous blood specimen / Unknown Venipuncture / Unknown 10/22/2024 8:25 PM EST 10/22/2024 8:36 PM EST us Jesu London MD LAB BLOOD ORDERABLES Final Res ult [facility] [address] [place] [address], * US Pelvis Non OB Complete w Transvaginal (10/22/2024 7:51 PM EST) Anatomical Region Laterality Modality Body, Pelvis Ultrasound 10/22/2024 8:13 PM EST Impressions 10/22/2024 8:13 PM EST Impression: 1. 3.6 cm left ovarian cyst with possible small thin internal septation. Consider follow-up ultrasound in 6 months. 2. Small fibroid as described above. This document has been electronically signed by: Jhony Peoples MD on 10/22/2024 20:13:29 Narrative 10/22/2024 8:13 PM EST US pelvis transabdominal and transvaginal Comparison: None Findings: Transabdominal scanning performed for overall anatomy. Transvaginal scanning performed for additional detail. Anteverted uterus 8.0 cm in length. Normal echotexture. A small intramural or submucosal fibroid measuring 14 x 12 x 15 mm is present.. Normal endometrium, 2 mm thickness. Right ovary normal, 19.0 cm. Normal color flow Left ovary normal, 3.9 cm. Normal color flow. A left ovarian cyst measuring 3.6 x 1.9 x 2.8 cm may have a thin internal septation. Otherwise no wall thickening or filling defects. Trace amount of likely physiologic free fluid Procedure Note Jhony Peoples MD - 10/22/2024 US pelvis transabdominal and transvaginal Comparison: None Findings: Transabdominal scanning performed for overall anatomy. Transvaginal scanning performed for additional detail. Anteverted uterus 8.0 cm in length. Normal echotexture. A smallintramural or submucosal fibroid measuring 14 x 12 x 15 mm is present.. Normal endometrium, 2 mm thickness. Right ovary normal, 19.0 cm. Normal color flow Left ovary normal, 3.9 cm. Normal color flow. A left ovarian cyst measuring 3.6 x 1.9 x 2.8 cm may have a thin internal septation.Otherwise no wall thickening or filling defects. Trace amount of likely physiologic free fluid IMPRESSION: Impression: 1. 3.6 cm left ovarian cyst with possible small thin internal septation. Consider follow-up ultrasound in 6 months. 2. Small fibroid as described above. This document has been electronically signed by: Jhony Peoples MD on 10/22/2024 20:13:29 us Kayla JANE IMG US PROCEDURES Final Re sult * (ABNORMAL) Urinalysis with reflex microscopic and culture (10/22/2024 7:07 PM [facility]) Specific [place] Urine 1.022 1.003 - 1.030 LAB URINALYSIS - AUTOMATED METHOD 10/22/2024 7:30 PM [facility] pH, Urine 5.5 5.0 - 8.0 pH LAB URINALYSIS - AUTOMATED METHOD 10/22/2024 7:30 PM [facility] Leukocytes, Urine Trace(A) Negative LAB URINALYSIS - AUTOMATED METHOD 10/22/2024 7:30 PM [facility] Nitrite, Urine Negative Negative LAB URINALYSIS - AUTOMATED METHOD 10/22/2024 7:30 PM [facility] Protein, Urine Negative <=Trace mg/dL LAB URINALYSIS - AUTOMATED METHOD 10/22/2024 7:30 PM [facility] Glucose, Urine Negative Negative mg/dL LAB URINALYSIS - AUTOMATED METHOD 10/22/2024 7:30 PM [facility] Ketones, Urine Trace(A) Negative mg/dL LAB URINALYSIS - AUTOMATED METHOD 10/22/2024 7:30 PM [facility] Urobilinogen, Urine 1.0 0.2 - 1.0 mg/dL LAB URINALYSIS - AUTOMATED METHOD 10/22/2024 7:30 PM [facility] Bilirubin, Urine Negative Negative LAB URINALYSIS - AUTOMATED METHOD 10/22/2024 7:30 PM [facility] Blood, Urine Negative Negative LAB URINALYSIS - AUTOMATED METHOD 10/22/2024 7:30 PM [facility] RBC, Urine 2.7 0 - 4 /HPF LAB URINALYSIS - AUTOMATED METHOD 10/22/2024 7:30 PM [facility] WBC, Urine 2.1 0 - 4 /HPF LAB URINALYSIS - AUTOMATED METHOD 10/22/2024 7:30 PM [facility] Squamous Epithelial, Urine >100(H) 0 - 60 /LPF LAB URINALYSIS - AUTOMATED METHOD 10/22/2024 7:30 PM [facility] Bacteria, Urine Few(A) Negative /HPF LAB URINALYSIS - AUTOMATED METHOD 10/22/2024 7:30 PM [facility] Hyaline Casts, Urine 0.4 0 - 3 /LPF LAB URINALYSIS - AUTOMATED METHOD 10/22/2024 7:30 PM [facility] Urine Urine specimen obtained by clean catch procedure / Unknown Non-blood Collection / Unknown 10/22/2024 7:07 PM EST 10/22/2024 7:22 PM EST Kayla JANE LAB URINE ORDERABLES Final Result Performing Organization Address [facility] Hospital/ZIP Co de Phone Number [facility] [address] [place] [address], [place] [phone] * Vanessa urine culture tube (10/22/2024 7:07 PM EST) Extra Tube Hold for add-ons. 10/22/2024 9:01 PM EST [facility] Comment:Auto resulted. Urine Urine specimen obtained by clean catch procedure / Unknown Non-blood Collection / Unknown 10/22/2024 7:07 PM EST 10/22/2024 7:22 PM EST [facility] URINE ORDERABLES Final Result [facility] [address] [place] [address], [place] [phone] * Culture urine (10/22/2024 7:07 PM EST) Culture, Urine <10,000 cfu/ml, insignificant count, no further workup. 10/24/2024 10:24 AM EST [facility] Urine Urine specimen obtained by clean catch procedure / Unknown Non-blood Collection / Unknown 10/22/2024 7:07 PM EST 10/22/2024 7:30 PM EST [facility] MICROBIOLOGY - GENERAL ORDERABLES Final Result [facility] [address] [place] [address], * Cervical Cancer Screening: HPV (02/02/2017) Pathologist [facility] Cervical Cancer Screening: HPV Negative, Abstracted Historical Provider MD HEALTH MAINTENANCE Final Result from Last 3 Months or Most Recently Relevant to Health Maintenance Insurance [facility] [address] [place] [phone] 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
--- OUTSIDE RECORDS SUMMARY | 2024-12-05 16:08 | XMS_ITS | Clinical Summary ---
Author Organization [facility] Address [address] [place] [address] Care Team Providers Care Willow Specialists Name Role Phone Katiana Araya MD Primary Care Provider Allergies Active Allergy Reactions Criticality Noted Date Comments Oxycodone-Acetaminophen Nausea And Vomiting Medications Medication Sig Dispensed Refills Start Date End Date Status Kurvelo 0.15-30 MG-MCG per tablet 0 02/16/2022 Active gabapentin (Neurontin) 300 MG capsule Take 1 capsule (300 mg total) by mouth daily. Start first dose the evening prior to surgery 3 capsule 0 06/26/2022 Active oxyCODONE (ROXICODONE) 5 MG immediate release tablet Take 1 tablet (5 mg total) by mouth every 6 (six) hours as needed for pain. Do not start until after surgery 10 tablet 0 06/26/2022 Active aspirin 81 MG EC tablet Take 1 tablet (81 mg total) by mouth 2 (two) times a day. 42 tablet 0 06/26/2022 Active cephalexin (Keflex) 500 MG capsule Take 1 capsule (500 mg total) by mouth 4 (four) times a day. Start after surgery 4 capsule 0 06/26/2022 Active Active Problems Problem Noted Date Diagnosed Date Acute pain of right knee 03/20/2022 Family History Medical History Relation Name Comments Diabetes Father Diabetes Mother Relation Name Status Comments Father Mother Social History Tobacco Use Types Packs/Day Years Used Date Smoking Tobacco: Never Smokeless Tobacco: Never Alcohol Use Standard Drinks/Week Comments Yes 1 (1 standard drink = 0.6 oz pur e alcohol) Sex and Gender Information Value Date Recorded Sex Assigned at Not on file Gender Identity Not on file Sexual Orientation Not on file Job Start Date Occupation Industry Not on file Not on file Not on file Last Filed Vital Signs Vital Sign Reading Time Taken Comments Blood Pressure 117/76 06/27/2022 6:39 PM EDT Pulse 76 06/27/2022 6:39 PM EDT Temperature 36.1 ??C (97 ??F) 06/27/2022 6:39 PM EDT Respiratory Rate 16 06/27/2022 6:39 PM EDT Oxygen Saturation 99% 06/27/2022 6:39 PM EDT Inhaled Oxygen Concentration - - Weight 74.8 kg (165 lb) 11/20/2022 4:35 PM EST Height 160 cm (5' 3 ) 11/20/2022 4:35 PM EST Body Mass Index 29.23 11/20/2022 4:35 PM EST Plan of Treatment Health Maintenance Due Date Last Done Comments Hepatitis B Vaccines (1 of 3 - 3-dose series) 1983 Hepatitis C Screening 1983 COVID-19 Vaccine (#1) 05/21/1984 Depression Screening 1995 BMI Counseling 2001 Preventative Health Evaluation 2001 Cervical Cancer Screening (Pap Smear) 2004 DTap / Tdap / Td (7 - Td or Tdap) 07/15/2018 07/15/2008, 12/21/1997, 11/14/1988, Additional history exists Influenza Vaccine (#1) 2024 7, 08/01/2015, 06/30/2012, Additional history exists Pneumococcal Vaccine Aged Out No long er eligible based on patient's age to complete this topic RSV Ped < 20 months Aged Out No longe r eligible based on patient's age to complete this topic Care Teams [employer]ow Specialists Relationship Specialty Start Date End Date Katiana Araya MD [address] [place] [id number] PCP - General Family Medicine 03/16/22
== END 2024-12-05 15:42 | disposition home or self-care (01) ==
LOC: HO.HUSH 14:36
PROVIDERS: Visit Provider Urology
DX: N32.81 Overactive bladder (principal); R39.15 Urgency of urination; Z13.9 Encounter for screening, unspecified
CPT/HCPCS: 52287

== ENCOUNTER → 2024-12-05 14:35 | Outpatient (BNVA) | payer OTHER, SELFPAY | PROVIDERS: Visit Provider Urology | DX: N32.81 Overactive bladder (principal); R39.15 Urgency of urination | CPT/HCPCS: 52287; 81003; J0585 ==

== ENCOUNTER → 2024-12-31 15:50 | Outpatient (BNVA) | payer OTHER, SELFPAY | PROVIDERS: Visit Provider Urology | DX: N32.81 Overactive bladder (principal); R39.15 Urgency of urination | CPT/HCPCS: 51798 ==

== ENCOUNTER 2025-04-02 16:01 | Outpatient (AMB) | payer OTHER, SELFPAY ==
--- NOTE | 2025-04-01 22:23 | MHC.OFFVIS ---
Intake Visit Reasons: 3M follow up Intake Note: Patient is present for 3m follow up Urology Medication:NONE Antibiotic Allergy:NONE Blood Thinner:NONE PVR:10ml Cardiovascular Or Nurse Required: No Allergies tadalafil (From Cialis) Allergy (Verified 04/02/25 16:10) Swelling From PERCOCET Adverse Reaction (Intermediate, Uncoded 12/05/24 14:40) VOMITING Medication List - Last Reconciled 04/02/25 by Buzz Dasilva MD levonorgestrel-ethinyl estrad 0.15-0.03 mg 1 tab PO DAILY 28 days HPI Comments Details: 04/02/25-- LV 12/05/24 had botox at that time here for 3 month fu 12/05/24--Here for Botox bladder injection. She stateds she stopped gemtesa, because she was getting bloated. Carmella is a 39-year-old female presenting with symptoms of overactive bladder. She has been experiencing persistent urinary urgency that significantly impacts her quality of life. These symptoms have led to the decision to administer a Botox injection as a management strategy. Previously, the patient tried pharmacologic interventions without sufficient relief. There have been no frequent urinary tract infections reported, although monitoring for such complications is part of her follow-up care. Urinary Symptoms Review - Symptoms of overactive bladder, including urinary urgency. - No mention of frequency of urination during the visit. - The absence of reported incontinence frequency or specific triggers. - Previous management involved pharmacologic treatment, but details are not specified. 09/29/24--Carmella is currently on gemtesa which helps with the strong urge and she has less sensation of bladder pressure and bladder spasms. She still has episodes of urge incontinence, and goes freequently q 1-2 hrs. Failed multiple anticholinergics, detrol, oxybutynin, vesicare, discussed botox bladder injection. I have discussed risks to include but not limited to muscle weakness, hematuria, UTI, urinary retention, need to repeat procedure for sustained efficacy. 09/12/2024--here for urodynamics. Shelby was last seen in the office on 04/29/2024 by the nurse practitioner for lower urinary tract symptoms sensation of incomplete bladder emptying, feelings of incomplete bladder emptying, urinary hesitancy, bladder pressure, and urinary urgency. Interpretation: Complex uroflow was not obtained. During the filling phase there was normal sensation, sensory urgency was noted, filling bladder capacity was less than average, the patient felt that she was at capacity at 227mL and voided 221 mL. 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 EMG- Appropriate changes in the waveforms were noted through out the study. Treatment options include p.o. anticholinergics, behavioral modification, pelvic floor physical therapy, Botox bladder injection, neuromodulation. 04/29/24--Carmella is a very pleasant 38 year-old female patient of Dr. Moyer. She has a past medical history of endometriosis, thyroid disease, and asthma. She is being follow-up on today via telehealth for her irritative voiding symptoms. Of note, patient was seen approximately 6 weeks ago at which time she was started on tolterodine. In discussion with the patient today she reports very minimal improvement in lower urinary tract symptoms despite 2 mg of tolterodine as well as 4 mg of tolterodine. She continues to report feelings of incomplete bladder emptying, urinary hesitancy, bladder pressure, and urinary urgency. Previous workup has included a CT urogram as well as in office cystoscopy. Of note, patient underwent an office cystoscopy with Dr. Guero Ho on 11/08/2022 at which time cystoscopy findings within normal limits, no suspicious bladder lesions were visualized. CT urogram noting urinary tract within normal limits. She has previously trialed and failed off of oxybutynin, VESIcare, Cialis, and now tolterodine. She otherwise denies incontinence, nocturia, hematuria, dysuria, foul smelling urine, changes to urinary stream, flank pain, fever, and or chills. Discussed at length potential causes for lower urinary tract symptoms patient is experiencing. She otherwise offers no other issues or concerns at this time. 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 Sexual orientation: Straight/Heterosexual Gender identity: Female Female Reproductive History Menstrual Age of Menarche: 11 Office Procedures Post Void Residual Post Residual Void Post Void Residual (PVR): 10 69002-Gjpt Void Residual by ultrasound Results AMB Urinalysis, Automated UA Leukoctes 0 Aleshia/uL Last Edit by July Frankel on 04/02/25 16:52 UA Nitrite Negative Last Edit by July Frankel on 04/02/25 16:52 UA Urobilinogen 3.5 mg/dL Last Edit by July Frankel on 04/02/25 16:52 UA Protein 1 mg/dL Last Edit by July Frankel on 04/02/25 16:52 UA pH 5.0 Last Edit by July Frankel on 04/02/25 16:52 UA Blood 0 Sudeep/uL Last Edit by July Frankel on 04/02/25 16:52 UA Specific [place] 1.025 Last Edit by July Frankel on 04/02/25 16:52 UA Ketone Negative Last Edit by uJly Frankel on 04/02/25 16:52 UA Bilirubin 0 mg/dL Last Edit by July Frankel on 04/02/25 16:52 UA Glucose 0 mg/dL Last Edit by July Frankel on 04/02/25 16:52 Assessment & Plan Assessment & Plan Orders: Orders AMB Urinalysis Automated Today Z13.9 - Encounter for screening, unspecified AMB Post Void Residual by ultrasound Today N32.81 - Overactive bladder Coding CPT Codes Post Residual Void - PVR CPT Code: 96997-[id number] Void Residual by ultrasound ([id number])
--- OUTSIDE RECORDS SUMMARY | 2025-04-02 16:03 | XMS_ITS | Clinical Summary ---
Author Organization [facility] Address [address] [place] [phone] Phone Care Team Providers Care Spindraw Operator Name Role Phone Physician, No Pcp Primary [...] months, then progestin contraceptive Allergic rhinitis 02/09/2006 Immunizations Name Administration Dates Next Due DTP 11/14/1988, 6,07/22/1984,04/30,01/24/1984 [id number] (Pentacel) 2mo to less than 5yo 11/26/1986 [...] Comments OTHER SURGICAL HISTORY 11/24, 08/26 PROCEDURE: MO ARTHRS AIDED ANT CRUCIATE LIGM RPR/AGMNTJ/RCNSTJ; COMMENT: ACL; right OTHER SURGICAL HISTORY 03/31 PROCEDURE: MO OSTEOPLASTY RADIUS/ULNA SHORTENING WRIST SURGERY PROCEDURE: HISTORICAL WRIST SURGERY; COMMENT: cyst removal OTHER SURGICAL HISTORY 2008 PROCEDURE: MO ARTHRS KNEE W/MENISCECTOMY MED&LAT W/SHAVING; COMMENT: right OTHER SURGICAL HISTORY 03/23/2011 PROCEDURE: MO LAPS FULG/EXC OVARY VISCERA/PERITONEAL SURFACE; COMMENT: endometrioma left ovary, partial oophorectomy and cautery endometriosis TONSILLECTOMY PROCEDURE: HISTORICAL TONSILLECTOMY; COMMENT: 12/2011 CHOLECYSTECTOMY PROCEDURE: HISTORICAL CHOLECYSTECTOMY; COMMENT: 01/2012 APPENDECTOMY 04/28/2017 PROCEDURE: MO APPENDECTOMY Medical History Medical History Date Comments [...] 93 10/23/2024 2:19 AM EST Temperature 37.7 C (99.9 F) 10/23/2024 2:19 AM EST Respiratory Rate 18 10/23/2024 2:19 AM EST [...] ( season) 2024 07/21/2021 Influenza Vaccine (#1) 2025 , 07/22/2019, 06/11/2017, Additional history exists HIB Vaccines [...] age to complete this topic Meningococcal B Vaccine Aged Out No l onger eligible based on patient's age to complete this topic Pneumococcal Vaccine: Pediatrics (0 to 5 Years) and At-Risk Patients (6 to 49 Years) Aged Out No longer eligible based on patient's age to complete this topic RSV Immunization Patients Under 20 months Aged Out No longer eligible based on patient's age to complete this topic Varicella Vaccines Aged Out No longer eligible based on patient's age to complete this topic Procedures Procedure Name Priority Date/Time Associated Diagnosis Comments HM HPV Routine 02/02/2017 from Last 3 Months or Most Recently Relevant to Health Maintenance Results * Cervical Cancer Screening: HPV (02/02/2017) Cervical Cancer Screening: HPV Negative, Abstracted us Historical Provider MD HEALTH MAINTENANCE Final Result from Last 3 Months or Most Recently Relevant to Health Maintenance Insurance Care Teams Spindraw Operator Relationship Specialty Start Date End Date Physician, No Pcp PCP - General 10/22/24
--- OUTSIDE RECORDS SUMMARY | 2025-04-02 16:03 | XMS_ITS | Clinical Summary ---
Author Organization [facility] Address [address] [place] [address] Care Team Providers Care Ornamental Bronze Worker Name Role Phone Katiana Araya MD Primary [...] 76 06/27/2022 6:39 PM EDT Temperature 36.1 C (97 F) 06/27/2022 6:39 PM EDT Respiratory Rate 16 [...] 11/14/1988, Additional history exists Influenza Vaccine (#1) 2025 7, 08/01/2015, 06/30/2012, Additional history exists Pneumococcal Vaccine Aged Out No long er eligible based on patient's age to complete this topic RSV Ped < 20 months Aged Out No longe r eligible based on patient's age to complete this topic Care Teams Ornamental Bronze Worker Relationship Specialty Start Date End Date Katiana Araya MD [address] [place] [address] PCP - General Family Medicine 03/16/22
--- OUTSIDE RECORDS SUMMARY | 2025-04-02 16:03 | XMS_ITS | Data Portability ---
Author Organization [place] [facility] [place] Address [address] [place] [address] Assessment Encounter Date Assessment Date Assessment LastModified by Organization Details LastModified Time 03/26/2023 03/26/2023 Persistent right knee medially based pain following a contusion. History of an arthroscopy back in June 2022 after she did very well. I reviewed treatment options with her. This included a discussion regarding observation, consideration of an intra-articular injection, physical therapy, consideration of the medial waiter/waitress tourist class brace. She is apprehensive about an injection, decided on trying physical therapy. We will request authorization for the medial waiter/waitress tourist class brace. If no improvement consider the injection [...] assess her progress, sooner for any complications. Not available 03/26/2023 09:31:29 05/22/2023 05/22/2023 Carmella [...] exercises. Icing protocol reviewed. She can use rpbb-iid-iyxkier anti-inflammator ies and Tylenol as needed with [...] injection, physical therapy, consideration of the medial waiter/waitress tourist class brace. She is apprehensive about an injection, decided on trying physical therapy. We will request authorization for the medial waiter/waitress tourist class brace. If no improvement consider the injection [...] assess her progress, sooner for any complications. Not available 05/22/2023 17:07:06 01/27/2025 01/27/2025 Acute injury to her left knee. Her symptoms are predominantly medially based. She may have a low-grade MCL sprain. Cannot exclude a medial meniscus tear. I went over treatment options with her. I suggest a trial of physical therapy and she is amenable to this. Prescription provided. If she does not make meaningful improvement we will consider an injection versus further workup with an MRI. She may find a short hinged knee brace to be helpful when she is up and around. Icing protocol reviewed. She will let symptoms be her guide with regards to activity. She may continue to use as needed zzua-cvw-fimbwho Tylenol with appropriate GI precautions, side effects reviewed. Recheck in 3 weeks, sooner if concerns arise. PRIOR SURYA: Carmella presents to the office today to [...] exercises. Icing protocol reviewed. She can use iizk-gmj-ecywdld anti-inflammator ies and Tylenol as needed with appropriate dosing and GI precautions. It appears things are moving in the right direction. She can follow-up with our office on an as-needed basis. Advised if she decides she would like to pursue formal physical therapy she can call for prescription. PRIOR: Persistent right knee medially based pain following a contusion. History of an arthroscopy back in June 2022 after she did very well. I reviewed treatment options with her. This included a discussion regarding observation, consideration of an intra-articular injection, physical therapy, consideration of the medial waiter/waitress tourist class brace. She is apprehensive about an injection, decided on trying physical therapy. We will request authorization for the medial waiter/waitress tourist class brace. If no improvement consider the injection [...] assess her progress, sooner for any complications. Not available 02/07/2025 09:33:42 02/19/2025 02/19/2025 Persistent acute on chronic left knee pain. I did offer her a cortisone injection today for diagnostic and therapeutic purposes, however she politely declines. She would like to move forward with an MRI which was ordered today. She will return for follow-up pending results I encouraged her to continue with physical therapy in the meantime. Questions invited and answered. Patient verbalizes understanding and agreement with plan. PRIOR : Acute injury to her left knee. Her symptoms are predominantly medially based. She may have a low-grade MCL sprain. Cannot exclude a medial meniscus tear. I went over treatment options with her. I suggest a trial of physical therapy and she is amenable to this. Prescription provided. If she does not make meaningful improvement we will consider an injection versus further workup with an MRI. She may find a short hinged knee brace to be helpful when she is up and around. Icing protocol reviewed. She will let symptoms be her guide with regards to activity. She may continue to use as needed [id number]-kjqfiqp Tylenol with appropriate GI precautions, side effects reviewed. Recheck in 3 weeks, sooner if concerns arise. PRIOR SURYA: Carmella presents to the office today to [...] exercises. Icing protocol reviewed. She can use rehg-vrf-qhzysqg anti-inflammator ies and Tylenol as needed with appropriate dosing and GI precautions. It appears things are moving in the right direction. She can follow-up with our office on an as-needed basis. Advised if she decides she would like to pursue formal physical therapy she can call for prescription. PRIOR: Persistent right knee medially based pain following a contusion. History of an arthroscopy back in June 2022 after she did very well. I reviewed treatment options with her. This included a discussion regarding observation, consideration of an intra-articular injection, physical therapy, consideration of the medial waiter/waitress tourist class brace. She is apprehensive about an injection, decided on trying physical therapy. We will request authorization for the medial waiter/waitress tourist class brace. If no improvement consider the injection [...] assess her progress, sooner for any complications. Not available 02/24/2025 07:41:04 03/16/2025 03/16/2025 Persistent left knee pain, predominantly medial and anterior. Her MRI is reassuring with mild degenerative changes. Clinically she has pes anserine tendinitis. She also may have some irritation of the saphenous nerve. Cannot rule out some mild underlying vascular insufficiency. Try lidoderm patch for her medial knee pain. Use and side effects reviewed. She defers a cortisone injection today. Continue HEP. She will consult her primary care physician regarding the potential for venous insufficiency, might benefit from a vascular consult with noninvasive studies. We will leave follow-up open-ended for the moment. She will consider a cortisone injection in the future. She is going to wean out of therapy to a home program. Questions invited and answered. Greater than 20 minutes was spent with the encounter today, including face to face time with the patient, documentation, review of records/imaging if applicable, and coordination of care. PRIOR SURYA: Persistent acute on chronic left knee pain. I did offer her a cortisone injection today for diagnostic and therapeutic purposes, however she politely declines. She would like to move forward with an MRI which was ordered today. She will return for follow-up pending results I encouraged her to continue with physical therapy in the meantime. PRIOR : Acute injury to her left knee. Her symptoms are predominantly medially based. She may have a low-grade MCL sprain. Cannot exclude a medial meniscus tear. I went over treatment options with her. I suggest a trial of physical therapy and she is amenable to this. Prescription provided. If she does not make meaningful improvement we will consider an injection versus further workup with an MRI. She may find a short hinged knee brace to be helpful when she is up and around. Icing protocol reviewed. She will let symptoms be her guide with regards to activity. She may continue to use as needed qzfm-pwc-xpruvpu Tylenol with appropriate GI precautions, side effects reviewed. Recheck in 3 weeks, sooner if concerns arise. PRIOR SURYA: Carmella presents to the office today to [...] exercises. Icing protocol reviewed. She can use murs-iqj-uguqhap anti-inflammator ies and Tylenol as needed with appropriate dosing and GI precautions. It appears things are moving in the right direction. She can follow-up with our office on an as-needed basis. Advised if she decides she would like to pursue formal physical therapy she can call for prescription. PRIOR: Persistent right knee medially based pain following a contusion. History of an arthroscopy back in June 2022 after she did very well. I reviewed treatment options with her. This included a discussion regarding observation, consideration of an intra-articular injection, physical therapy, consideration of the medial waiter/waitress tourist class brace. She is apprehensive about an injection, decided on trying physical therapy. We will request authorization for the medial waiter/waitress tourist class brace. If no improvement consider the injection [...] assess her progress, sooner for any complications. Not available 03/16/2025 13:31:13 Plan of Treatment Reminders Order Date Submit Date Provider Last Modified By Organization Details Last Modified Time Details Appointments None recorded. Lab None recorded. Referral physical therapist referral 2022 023 [email or web address] Not available 09:30:10 Procedures None recorded. Surgeries None recorded. Imaging MRI, knee, w/o contrast - Acute on chronic left knee pain. Eval chronic MCL sprain versus meniscal injury 2024 025 [facility] [address], [place], [address], 12:27:32 XR, knee, 3 view 2024 025 [email or web address] [facility], [address], [place], [address], 14:39:08 Medication Orders Lidoderm 5 % topical patch 2024 025 [id number], [address], [place], [id number], 5 13:24:47 Patient TargetsNo targets recorded. Patient InstructionsNo instructions recorded. Reason for Referral Physical Therapist Referral for Contusion of right knee Referring Physician: Jhony Jimenez, Orthopedic Surgery, Encounter Date: 03/26/2023 Results Created Date Observation Date Name Description Value Unit Range Abnormal Flag Note LastModifiedBy Organization Detail LastModifiedTime 03/05/2003/04/2025 MRI, knee, w/o contr ast No observ ation record ed. [email or web address] [facility] [address], [address], 03/05/2025 20:50:14 Result Notes None recorded. Problems Name Problem SNOMED Code Status Onset Date Resolution Date Notes Provider Name and Address Organization Details Recorded Time History of reconstruct ion of anterior cruciate ligament tear 292120912 Active [address], [place], [address], [place] [facility], [facility] 3 09:52:40 Pes anserinus bursitis of right knee 8296468735134 109 Active 2022 Jhony Jimenez MD [address], [place], [address], [place] [facility], [facility] 3 09:45:30 Osteoarthri tis of right knee joint 0416818871237 00 Active [address], [place], [address], [place] [facility], [facility] 3 09:45:32 Contusion of right knee 7246333638659 9104 Active [address], [place], [address], [place] [facility], [facility] 3 17:16:18 Sprain of medial collateral ligament of knee 17191333 Active 2022 BETH LYNN PA-C [address], [place], [place], [address], [facility], P 3 17:16:26 Pain of left knee joint 1616413055137 07 Active 2024 Jhony Jimenez MD [address], [place], [place], [address], [facility], P 5 14:10:43 Problem Notes None recorded. Procedures Surgical History Date Name Laterality Status Provider Name and Address Organization Details Recorded Time cholecystectomy completed [facility], [facility] 01/27/2025 14:07:08 appendectomy completed [facility], [facility] 01/27/2025 14:07:19 tonsillectomy completed [facility], [facility] 01/27/2025 14:07:25 Imaging Results None recorded. Procedure Notes None recorded. Medical Equipment None Reported. Allergies Allergen ID Allergen Name Allergen Category Reaction Reaction Severity Criticality Documentation Date Start Date Code Code System Note Provider Name and Address Organization Details Recorded Time 555 acetamino phen / oxycodone medicatio n Not available Not available Not available 12/11/2022 09685 3 RxNorm Christine Ariel [facility], [facility], P 3 15:45:23 Medications Name Sig Start Date Stop Date Status Note LastModified by Organization Details LastModified Time binaxnow covid-19 ag card home test kit 03/16 completed Not Available Not Available Not Available amoxicillin 500 mg capsule 03/25 completed Not Available Not Available Not Available neomycin-po lymyxin-hyd rocort 3.5 mg/mL-10,00 0 unit/mL-1 % ear solution INSTILL 4 DROPS INTO AFFECTED EAR(S) BY OTIC ROUTE 3 TIMES PER DAY X 5 DAYS 03/16 completed Not Available Not Available Not Available ondansetron HCl 4 mg tablet 03/16 completed Not Available Not Available Not Available meloxicam 7.5 mg tablet 03/16 completed Not Available Not Available Not Available cephalexin 500 mg capsule 03/16 completed Not Available Not Available Not Available lidocaine 5 % topical patch APPLY 1 PATCH TOPICALLY TO THE SKIN DAILY. MAY WEAR UP TO 12 HOURS active Not Available Not Available No t Available gabapentin 300 mg capsule 03/16 completed Not Available Not Available Not Available oxycodone 5 mg tablet 03/16 completed Not Available Not Available Not Available tadalafil 5 mg tablet TAKE ONE TABLET BY MOUTH EVERY DAY 03/16 completed Not Available Not Available Not Available Kurvelo (28) 0.15 mg-0.03 mg tablet TAKE 1 TABLET OP EVERY DAY active Not Available Not Available No t Available Vitals Date Recorded Body height Body mass index (BMI) Body weight Provider Name and Address Organization Details Last Updated DateTime 01/27/2025 160.02 cm 27.6 kg/m2 63935.41 [facility] 01/27/2025 14:06:19 Date Recorded Body height Body mass index (BMI) Body weight Provider Name and Address Organization Details Last Updated DateTime 03/16/2025 160.02 cm 27.5 kg/m2 [address] [facility] 03/16/2025 13:12:22 Date Recorded Body height Body mass index (BMI) Body weight Provider Name and Address Organization Details Last Updated DateTime 03/26/2023 160.02 cm 27.5 kg/m2 97241.82 g Liam Jaegernchard [facility], [facility] 03/26/2023 09:04:15 Date Recorded Body height Body mass index (BMI) Body weight Provider Name and Address Organization Details Last Updated DateTime 05/22/2023 160.02 cm 27.5 kg/m2 01972.82 g Liam Jaegernchard [facility] 05/22/2023 16:26:10 Social History None recorded. Functional Status Question Answer Note LastModified by Organizat ion Details LastModified Time Do you use any illicit or recreational drugs? No Information not available 12/11/2022 Do you or have you ever used any other forms of tobacco or nicotine? No [email or web address] Information not available 12/11/2022 What is your level of alcohol consumption? Occasional Information not available 12/11/2022 Are you currently employed? 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 Family History Relationship Description Onset Age of this Age Resolved Age Notes LastModified by Organization Details LastModified Time Father Diabetes mellitus [email or web address] Not available 2022 15:46:31 Mother Diabetes mellitus [email or web address] Not available 2022 15:46:35 Mother Heart disease [email or web address] Not available 16:26:03 Medical History Condition Response Anemia Y Asthma Y Reflux/GERD Y Gynecological HistoryNo gynecological history recorded. Obstetrics History GPAL:G 0 P 0 0 0 0 Past Encounters Encounter ID Performer Location Encounter Start Date Encounter Closed Date Diagnosis/Indication Diagnosis SNOMED-CT Code Diagnosis ICD10 Code Diagnosis Note [id number] BEHT LYNN PA-C [place] [address] 12/11/2022 15:24:09 12/11/2022 16:12:06 Contusion of right knee 8152223774 1794164 S80.01XD Sprain of medial collateral ligament of knee 06532785 S83.411D History of reconstruction of anterior cruciate ligament tear 694978969 Z98.890 [id number] BETH LYNN PA-C [place] [address] 02/12/2023 15:05:06 02/12/2023 15:34:39 Sprain of medial collateral ligament of knee 98619504 S83.411D Contusion of right knee 3422237924 2266557 S80.01XD History of reconstruction of anterior cruciate ligament tear 104150817 Z98.890 [id number] Jhony Jimenez MD [place] [address] 03/26/2023 09:01:45 03/26/2023 09:30:09 Contusion of right knee 9128189253 5221737 S80.01XD Sprain of medial collateral ligament of knee 52704732 S83.411D History of reconstruction of anterior cruciate ligament tear 774531933 Z98.890 Osteoarthr itis of right knee joint 0770612196 21182 M17.11 Pes anseri nus bursitis of right knee 5349300033 539431 M70.51 [id number] ALBERT JERNIGAN [address] [place] [address] 05/22/2023 16:21:35 05/22/2023 16:39:39 History of reconstruction of anterior cruciate ligament tear 483861665 Z98.890 Contusion of right knee 8447671777 0659333 S80.01XD Sprain of medial collateral ligament of knee 63683993 S83.411D Osteoarthr itis of right knee joint 3638921637 M17.11 [id number] Jhony Jimenez MD [address] [address] 01/27/2025 13:58:30 01/27/2025 14:25:49 History of reconstruction of anterior cruciate ligament tear 814175944 Z98.890 right Osteoarthr itis of right knee joint 8491445375 M17.11 Pain of le ft knee joint 6176718425 32651 M25.[id number] [address] 02/19/2025 14:50:49 02/19/2025 15:38:37 Pain of left knee joint 3407211299 06705 M25.562 History of reconstruction of anterior cruciate ligament tear 918070578 Z98.890 right Osteoarthr itis of right knee joint 2768894109 M17.11 [id number] Jhony Jimenez MD [address] [address] 03/16/2025 13:04:33 03/16/2025 13:31:49 Pain of left knee joint 2480444024 97831 M25.562 History of reconstruction of anterior cruciate ligament tear 346074415 Z98.890 right Osteoarthr itis of right knee joint 4245588110 M17.11 Health Concerns Section Related Observation LastModified by Organization Detai ls LastModified Time None Recorded Concern Status LastModified by Organization Details LastModified Time None Recorded Advance Directives Directive None Recorded Payers None recorded. Notes Date Note Type Note Provider Name and Address Organization Details Recorded Time 03/26/2023 text/html She was doing ve ry [...] to a 7 on a 10 point scale.PRIOR:She is doing well. She feels she is making good progress with her home exercise program. She notes occasional medial discomfort, but this is not all the time. She perhaps notices it most consistently on stairs. She denies any swelling or instability. She feels she is substantially better with regards to symptoms as compared to before surgery. Jhony Jimenez MD [address], [place], [address], [place] [facility] 03/26/2023 09:45:45 05/22/2023 text/html Carmella presents t he office today to follow-up on her ongoing right knee pain. She reports she feels improved since her last visit. Her pain is down to a 3/10 on average. Well controlled with zkwf-osm-tlcgldj anti-inflammatories and icing as needed. She has been walking at least once daily with minimal difficulty. Denies any significant swelling. Previous feelings of instability are much less frequent. She decided not to do physical therapy nor use the medial waiter/waitress tourist class brace. She is going to try a [...] to a 7 on a 10 point scale.PRIOR:She is doing well. She feels she is making good progress with her home exercise program. She notes occasional medial discomfort, but this is not all the time. She perhaps notices it most consistently on stairs. She denies any swelling or instability. She feels she is substantially better with regards to symptoms as compared to before surgery. JODIE CASPER PA-C [address], [place], [address], [place] [facility] 05/22/2023 17:07:40 01/27/2025 text/html Patient returns to the office after a fairly lengthy hiatus. She is here for an evaluation of left knee pain. Symptoms have been present now for 23 days. She went to turn and plant when she felt excruciating pain . She noted some degree of swelling. Since that time she has noted difficulty trying to sleep, sleeping with a pillow between her knees. She has been taking occasional Tylenol. She walks with an occasional limp. She has not had any specific treatment, no formal therapy. She rates her pain as moderate, between a 6 to an 8 on a 10 point scale. She describes the symptoms as throbbing, dull/aching, pinching, shooting, and localized. She denies instability. She notes occasional catching and locking. She feels limited with daily activities and exercise. She reports a history of anemia and asthma. History of acid reflux. 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 PRIOR SURYA 05/22/23:Carmella presents the office today to follow-up on her ongoing right knee pain. She reports she feels improved since her last visit. Her pain is down to a 3/10 on average. Well controlled with iyef-nxc-clvrdmd anti-inflammatories and icing as needed. She has been walking at least once daily with minimal difficulty. Denies any significant swelling. Previous feelings of instability are much less frequent. She decided not to do physical therapy nor use the medial waiter/waitress tourist class brace. She is going to try a [...] that her pain is manageable at this point.PRIOR:She was doing very well up until she [...] primarily in the medial part of her knee.Prior 12/11/2022:Patient is a pleasant 37-year-old female known [...] to a 7 on a 10 point scale.PRIOR:She is doing well. She feels she is making good progress with her home exercise program. She notes occasional medial discomfort, but this is not all the time. She perhaps notices it most consistently on stairs. She denies any swelling or instability. She feels she is substantially better with regards to symptoms as compared to before surgery. Jhony Jimenez MD [address], [place], [address], [place] [facility] 02/07/2025 09:35:48 02/19/2025 text/html Patient returns to the office today for follow-up of her bilateral knee pain, predominantly left. At present she reports her right knee is achy but okay. She started physical therapy shortly after we saw her lastAnd is seeing perhaps early improvement, however nothing significant. She states that she is having a great deal of difficulty sleeping as the knee is most painful at night. PRIOR:Patient returns to the office after a fairly lengthy hiatus. She is here for an evaluation of left knee pain. Symptoms have been present now for 23 days. She went to turn and plant when she felt excruciating pain . She noted some degree of swelling. Since that time she has noted difficulty trying to sleep, sleeping with a pillow between her knees. She has been taking occasional Tylenol. She walks with an occasional limp. She has not had any specific treatment, no formal therapy. She rates her pain as moderate, between a 6 to an 8 on a 10 point scale. She describes the symptoms as throbbing, dull/aching, pinching, shooting, and localized. She denies instability. She notes occasional catching and locking. She feels limited with daily activities and exercise. She reports a history of anemia and asthma. History of acid reflux. 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 PRIOR SURYA 05/22/23:Carmella presents the office today to follow-up on her ongoing right knee pain. She reports she feels improved since her last visit. Her pain is down to a 3/10 on average. Well controlled with zfbw-ltn-grcdsbj anti-inflammatories and icing as needed. She has been walking at least once daily with minimal difficulty. Denies any significant swelling. Previous feelings of instability are much less frequent. She decided not to do physical therapy nor use the medial waiter/waitress tourist class brace. She is going to try a [...] that her pain is manageable at this point.PRIOR:She was doing very well up until she [...] primarily in the medial part of her knee.Prior 12/11/2022:Patient is a pleasant 37-year-old female known [...] to a 7 on a 10 point scale.PRIOR:She is doing well. She feels she is making good progress with her home exercise program. She notes occasional medial discomfort, but this is not all the time. She perhaps notices it most consistently on stairs. She denies any swelling or instability. She feels she is substantially better with regards to symptoms as compared to before surgery. JODIE CASPER PA-C [address], [place], [address], [place] - [facility] 02/24/2025 07:41:37 03/16/2025 text/html Patient returns for reevaluation of her ongoing predominantly medially and anteriorly based left knee pain. She notes occasional swelling. She has completed about 4 weeks of physical therapy without any meaningful improvement. She rates her worst pain as a 5 to a 6 on a 10 point scale. She denies radiating pain to the hip or ankle. She did have her MRI and brings it in today for review. PRIOR SURYA:Patient returns to the office today for follow-up of her bilateral knee pain, predominantly left. At present she reports her right knee is achy but okay. She started physical therapy shortly after we saw her last and is seeing perhaps early improvement, however nothing significant. She states that she is having a great deal of difficulty sleeping as the knee is most painful at night.PRIOR:Patient returns to the office after a fairly lengthy hiatus. She is here for an evaluation of left knee pain. Symptoms have been present now for 23 days. She went to turn and plant when she felt excruciating pain . She noted some degree of swelling. Since that time she has noted difficulty trying to sleep, sleeping with a pillow between her knees. She has been taking occasional Tylenol. She walks with an occasional limp. She has not had any specific treatment, no formal therapy. She rates her pain as moderate, between a 6 to an 8 on a 10 point scale. She describes the symptoms as throbbing, dull/aching, pinching, shooting, and localized. She denies instability. She notes occasional catching and locking. She feels limited with daily activities and exercise.She reports a history of anemia and asthma. History of acid reflux. 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 She reports she feels improved since her last visit. Her pain is down to a 3/10 on average. Well controlled with ates-stv-uxstecv anti-inflammatories and icing as needed. She has been walking at least once daily with minimal difficulty. Denies any significant swelling. Previous feelings of instability are much less frequent. She decided not to do physical therapy nor use the medial waiter/waitress tourist class brace. She is going to try a [...] that her pain is manageable at this point.PRIOR:She was doing very well up until she [...] primarily in the medial part of her knee.Prior 12/11/2022:Patient is a pleasant 37-year-old female known [...] to a 7 on a 10 point scale.PRIOR:She is doing well. She feels she is making good progress with her home exercise program. She notes occasional medial discomfort, but this is not all the time. She perhaps notices it most consistently on stairs. She denies any swelling or instability. She feels she is substantially better with regards to symptoms as compared to before surgery. Jhony Jimenez MD [address], [place], [address], [place] - [facility] 03/16/2025 14:25:39 OBGyn Episode No OBEpisode recorded.
--- OUTSIDE RECORDS SUMMARY | 2025-04-02 16:03 | XMS_ITS ---
Author Name [facility] Organization Unknown History of Medication Use Medication Directions Dispensed Refills Start Date End Date Stat us Lidoderm 5 % topical patch APPLY 1 PATCH BY TOPICAL ROUTE ONCE DAILY (MAY WEAR UP TO 12HOURS.) 03/16/2025 active amoxicillin 500 mg capsule 03/25/2023 active Lidoderm 5 % topical patch active binaxnow covid-19 ag card home test kit active tadalafil 5 mg tablet TAKE ONE TABLET BY MOUTH EVERY DAY active Allergies Allergen Reaction Severity Comment Documented Date Source Statu s PERCOCET [facility] Problems Problem Status Onset Date Problem Type Date of Resoluti on Source Osteoarthritis of right knee joint active 2023-03-26 ProblemAct [facility] Sprain of medial collateral ligament of knee active 2022-12-12 ProblemAct [facility] Contusion of right knee active 2022-12-12 ProblemAct [facility] Pes anserinus bursitis of right knee active 2023-03-26 ProblemAct [facility] History of reconstruction of anterior cruciate ligament tear active 2023-03-25 ProblemAct [facility] Pain of left knee joint active 2025-01-27 ProblemAct [facility] Encounters Encounter Type Encounter Reason Primary Diagnosis Location Date Ambulatory [facility] 03/17/2025 Ambulatory [facility] 03/16/2025 Ambulatory [facility] 02/25/2025 Ambulatory [facility] 02/19/2025 Ambulatory [facility] 02/09/2025 Ambulatory [facility] 01/27/2025 Ambulatory [facility] 01/27/2025 Ambulatory [facility] 01/27/2025 Ambulatory [facility] 06/12/2023 Ambulatory [facility] 05/22/2023 Ambulatory [facility] 04/25/2023 Ambulatory [facility] 03/26/2023 Ambulatory [facility] 03/25/2023 Ambulatory [facility] 03/25/2023 Ambulatory [facility] 03/24/2023 Ambulatory [facility] 02/12/2023 Ambulatory [facility] 12/11/2022 Care Team Organization Name Specialty Phone Email Start Date End Da te [facility] KAMERON RIVERA Primary Care 08/24/2022 05/12/2024
== END 2025-04-02 16:36 | disposition home or self-care (01) ==
LOC: HO.HUSH 16:02
PROVIDERS: Visit Provider Urology
DX: Z13.9 Encounter for screening, unspecified (principal)

== ENCOUNTER → 2025-04-02 16:01 | Outpatient (BNVA) | payer OTHER, SELFPAY | PROVIDERS: Visit Provider Urology | DX: R39.15 Urgency of urination (principal); N32.81 Overactive bladder | CPT/HCPCS: 51798; 81003 ==

== ENCOUNTER → 2025-05-12 16:15 | Outpatient (BNV) | payer OTHER, SELFPAY | PROVIDERS: PCP Obstetrics & Gynecology; Visit Provider Internal Medicine | DX: Z12.31 Encounter for screening mammogram for malignant neoplasm of breast (principal) | CPT/HCPCS: 77063; 77067 ==

== ENCOUNTER 2025-05-12 16:18 | Outpatient (REF) | payer OTHER, SELFPAY ==
--- NOTE | ~2025-05-12 | MM_ITS ---
EXAMINATION: MM SCREENING DIGITAL BREAST TOMOSYNTHESIS, BILATERAL CLINICAL INFORMATION: Screening. Asymptomatic. COMPARISON: Mammography: Comparison is made with available priors TECHNIQUE: Digital breast mammography with tomosynthesis is performed in both the craniocaudal and mediolateral oblique views along with computer-aided detection (CAD). FINDINGS: There are scattered areas of fibroglandular density (ACR BI-RADS breast composition Category b). There are no significant masses, abnormal calcifications, or other abnormalities. MM/MM tomosynthesis screening BI IMPRESSION: No mammographic evidence of malignancy. ASSESSMENT: BI-RADS BI-RADS 1 - Negative RECOMMENDATION: Routine annual mammography screening. 1 year F/U This examination should not preclude the clinical evaluation of a suspicious palpable abnormality. This patient's information was entered into a reminder system with a target due date for their next mammogram. Electronically signed by: Roma Velasquez DO 05/14/2025 11:25 AM EDT
--- OUTSIDE RECORDS SUMMARY | 2025-05-12 17:39 | XMS_ITS | Clinical Summary ---
Author Organization [facility] Address [address] [place] [phone] Phone Care Team Providers Care Hosiery Pairer Name Role Phone Physician, No Pcp Primary [...] Administration Dates Next Due DTP 11/14/1988, 6,07/22/1984,04/30,01/24/1984 [id number] (Pentacel) 2mo to less than 5yo 11/26/1986 [...] Comments OTHER SURGICAL HISTORY 11/24, 08/26 PROCEDURE: [place] ARTHRS AIDED ANT CRUCIATE LIGM RPR/AGMNTJ/RCNSTJ; COMMENT: ACL; right OTHER SURGICAL HISTORY 03/31 PROCEDURE: [place] OSTEOPLASTY RADIUS/ULNA SHORTENING WRIST SURGERY PROCEDURE: HISTORICAL WRIST SURGERY; COMMENT: cyst removal OTHER SURGICAL HISTORY 2008 PROCEDURE: [place] ARTHRS KNEE W/MENISCECTOMY MED&LAT W/SHAVING; COMMENT: right OTHER SURGICAL HISTORY 03/23/2011 PROCEDURE: [place] LAPS FULG/EXC OVARY VISCERA/PERITONEAL SURFACE; COMMENT: endometrioma left ovary, partial oophorectomy and cautery endometriosis TONSILLECTOMY PROCEDURE: HISTORICAL TONSILLECTOMY; COMMENT: 12/2011 CHOLECYSTECTOMY PROCEDURE: HISTORICAL CHOLECYSTECTOMY; COMMENT: 01/2012 APPENDECTOMY 04/28/2017 PROCEDURE: AK APPENDECTOMY Medical History Medical History Date Comments [...] Relevant to Health Maintenance Insurance Care Teams Hosiery Pairer Relationship Specialty Start Date End Date Physician, No Pcp PCP - General 10/22/24
--- OUTSIDE RECORDS SUMMARY | 2025-05-12 17:39 | XMS_ITS | Clinical Summary ---
Author Organization [facility] Address [address] [place] [address] [place] [phone] Phone Care Team Providers Care Manager Machine Name Role Phone Pcp, Not Required Primary [...] Not on file Insurance [address] [place], [place] [id number] [place], [place] [id number] Care Teams Manager Machine Relationship Specialty Start Date End Date Pcp, Not Required [address] [place] [phone] PCP - General 10/17/13 Additional Source Comments The information contained in this document represents components of the legal health record. It is not the complete legal health record.[facility]
--- OUTSIDE RECORDS SUMMARY | 2025-05-12 17:39 | XMS_ITS | Clinical Summary ---
Author Organization [facility] Address [address] [place] [address] Care Team Providers Care Spanish Medical Interpreter Name Role Phone Katiana Araya MD Primary [...] age to complete this topic Care Teams Spanish Medical Interpreter Relationship Specialty Start Date End Date Katiana Araya MD [address] [place] [address] PCP - General Family Medicine 03/16/22
== END 2025-05-12 16:19 | disposition home or self-care (01) ==
LOC: HO.MAMMO 16:18
PROVIDERS: PCP Obstetrics & Gynecology; Visit Provider Obstetrics & Gynecology
DX: Z12.31 Encounter for screening mammogram for malignant neoplasm of breast (principal)
CPT/HCPCS: 77063; 77067

== ENCOUNTER 2025-05-14 14:57 | Outpatient (REF) | payer OTHER, SELFPAY ==
--- NOTE | ~2025-05-14 | US_ITS ---
CLINICAL HISTORY: R93.89 - Abnormal findings on diagnostic imaging of other specified body... US female pelvis LMP: 04/07/25. Technique: Ultrasound examination of the pelvis was performed with transabdominal and transvaginal technique for better visualization of the ovaries. Images include color Doppler. Comparison: US/VA/SR - US PELVIS TRANSABDOMINAL AND TRANSVAGINAL - 05/08/24 16:27 EDT US/SR - US PELVIS TRANSABDOMINAL AND TRANSVAGINAL - 05/02/23 12:55 EDT Findings: Anteverted uterus measuring 6.4 x 3.2 x 4.1 cm with an intramural fibroid measuring 0.6 x 0.5 x 0.6 cm. The other previously seen fibroids are not visualized. Normal endometrial thickness of 0.2 cm. Small calcification, unchanged. The right ovary is nonenlarged, measuring 1.2 x 1.3 x 1.4 cm, volume of 1.1 mL. There is normal echogenicity and vascularity. No lesions. The left ovary is not visualized. No lesions in the left adnexa. No free fluid. Impression: Subcentimeter fibroid. No acute findings. This document has been electronically signed by: Jeanne Winchester MD on 05/15/2025 17:56:03
--- OUTSIDE RECORDS SUMMARY | 2025-05-14 15:01 | XMS_ITS | Clinical Summary ---
Author Organization [facility] Address [address] [place] [address] [place] [phone] Phone Care Team Providers Care Linux Administrator Name Role Phone Pcp, Not Required [...] Not on file Insurance [address] [place], [place] [id number] [place], [place] [id number] Care Teams Linux Administrator Relationship Specialty Start Date End Date Pcp, Not Required [address] [place] [id number] PCP - General 10/17/13 Additional Source Comments The information contained in this document represents components of the legal health record. It is not the complete legal health record.[facility]
--- OUTSIDE RECORDS SUMMARY | 2025-05-14 15:01 | XMS_ITS | Clinical Summary ---
Author Organization [facility] Address [address] [place] [phone] Phone Care Team Providers Care Millinery Blocker Name Role Phone Physician, No Pcp Primary [...] Administration Dates Next Due DTP 11/14/1988, 6,07/22/1984,04/30,01/24/1984 [id number] (Pentacel) 2mo to less than 5yo 11/26/1986 [...] Comments OTHER SURGICAL HISTORY 11/24, 08/26 PROCEDURE: [place] ARTHRS AIDED ANT CRUCIATE LIGM RPR/AGMNTJ/RCNSTJ; COMMENT: ACL; right OTHER SURGICAL HISTORY 03/31 PROCEDURE: [place] OSTEOPLASTY RADIUS/ULNA SHORTENING WRIST SURGERY PROCEDURE: HISTORICAL WRIST SURGERY; COMMENT: cyst removal OTHER SURGICAL HISTORY 2008 PROCEDURE: MA ARTHRS KNEE W/MENISCECTOMY MED&LAT W/SHAVING; COMMENT: right OTHER SURGICAL HISTORY 03/23/2011 PROCEDURE: MA LAPS FULG/EXC OVARY VISCERA/PERITONEAL SURFACE; COMMENT: endometrioma left ovary, partial oophorectomy and cautery endometriosis TONSILLECTOMY PROCEDURE: HISTORICAL TONSILLECTOMY; COMMENT: 12/2011 CHOLECYSTECTOMY PROCEDURE: HISTORICAL CHOLECYSTECTOMY; COMMENT: 01/2012 APPENDECTOMY 04/28/2017 PROCEDURE: MA APPENDECTOMY Medical History Medical History Date Comments [...] Relevant to Health Maintenance Insurance Care Teams Millinery Blocker Relationship Specialty Start Date End Date Physician, No Pcp PCP - General 10/22/24
--- OUTSIDE RECORDS SUMMARY | 2025-05-14 15:01 | XMS_ITS | Clinical Summary ---
Author Organization [facility] Address [address] [place] [address] Care Team Providers Care Deputy Sheriff Lieutenant Name Role Phone Katiana Araya MD Primary [...] age to complete this topic Care Teams Deputy Sheriff Lieutenant Relationship Specialty Start Date End Date Katiana Araya MD [address] [place] [address] PCP - General Family Medicine 03/16/22
== END 2025-05-14 14:58 | disposition home or self-care (01) ==
LOC: HO.US 14:57
PROVIDERS: Visit Provider Obstetrics & Gynecology
DX: R93.89 Abnormal findings on diagnostic imaging of other specified body structures (principal); D25.9 Leiomyoma of uterus, unspecified
CPT/HCPCS: 76830; 76856

== ENCOUNTER → 2025-05-14 14:59 | Outpatient (BNV) | payer OTHER, SELFPAY | PROVIDERS: Visit Provider Radiology Diagnostic Radiology | DX: D25.1 Intramural leiomyoma of uterus (principal) | CPT/HCPCS: 76830; 76856 ==

== ENCOUNTER 2025-05-27 16:31 | Outpatient (REF) | payer OTHER, SELFPAY ==
--- OUTSIDE RECORDS SUMMARY | 2025-05-27 18:00 | XMS_ITS | Clinical Summary ---
Author Organization [facility] Address [address] [place] [phone] Phone Care Team Providers Care Advanced Manufacturing Associate Name Role Phone Physician, No Pcp Primary [...] Administration Dates Next Due DTP 11/14/1988, 6,07/22/1984,04/30,01/24/1984 [id number] (Pentacel) 2mo to less than 5yo 11/26/1986 [...] Comments OTHER SURGICAL HISTORY 11/24, 08/26 PROCEDURE: [place] ARTHRS AIDED ANT CRUCIATE LIGM RPR/AGMNTJ/RCNSTJ; COMMENT: ACL; right OTHER SURGICAL HISTORY 03/31 PROCEDURE: [place] OSTEOPLASTY RADIUS/ULNA SHORTENING WRIST SURGERY PROCEDURE: HISTORICAL WRIST SURGERY; COMMENT: cyst removal OTHER SURGICAL HISTORY 2008 PROCEDURE: IA ARTHRS KNEE W/MENISCECTOMY MED&LAT W/SHAVING; COMMENT: right OTHER SURGICAL HISTORY 03/23/2011 PROCEDURE: IA LAPS FULG/EXC OVARY VISCERA/PERITONEAL SURFACE; COMMENT: endometrioma left ovary, partial oophorectomy and cautery endometriosis TONSILLECTOMY PROCEDURE: HISTORICAL TONSILLECTOMY; COMMENT: 12/2011 CHOLECYSTECTOMY PROCEDURE: HISTORICAL CHOLECYSTECTOMY; COMMENT: 01/2012 APPENDECTOMY 04/28/2017 PROCEDURE: IA APPENDECTOMY Medical History Medical History Date Comments [...] 08/27/2022 Social Influencers of Health Screening 08/27/2022 Depression Screening 09/24/2024 COVID-19 Vaccine ( season) 2025 07/21/2021 Influenza Vaccine (#1) 2025 , 07/22/2019, [...] Relevant to Health Maintenance Insurance Care Teams Advanced Manufacturing Associate Relationship Specialty Start Date End Date Physician, No Pcp PCP - General 10/22/24
--- OUTSIDE RECORDS SUMMARY | 2025-05-27 18:00 | XMS_ITS | Clinical Summary ---
Author Organization [facility] Address [address] [place] [address] [place] [phone] Phone Care Team Providers Care Liquified Natural Gas Technician Name Role Phone Pcp, Not Required Primary [...] HEPATITIS C SCREENING 2001 HIV ONE-TIME SCREENING (18-65 YEARS) 2001 PAP SMEAR 2004 Adult Td,Tdap Booster 07/15/2018 07/15/2008, 998 SCREENING FOR DIABETES 2018 MAMMOGRAM 2023 COVID-19 VACCINE ( season) 2024 07/21/2021 INFLUENZA VACCINE (#1) 2025 0, 07/22/2019, 08/01/2015, Additional history exists HIB VACCINES Completed 11/26/1986 MENINGOCOCCAL VACCINES (ACWY) [...] (0-49 years) Aged Out No longer eligible based on patient's age to complete this topic Medical Devices Not on file Insurance [address] [place], [place] [id number] [place] [place] [id number] [place], [place] [id number] Care Teams Liquified Natural Gas Technician Relationship Specialty Start Date End Date Pcp, Not Required [address] [place] [phone] PCP - General 10/17/13 Additional Source Comments The information contained in this document represents components of the legal health record. It is not the complete legal health record.[facility]
--- OUTSIDE RECORDS SUMMARY | 2025-05-27 18:00 | XMS_ITS | Clinical Summary ---
Author Organization [facility] Address [address] [place] [address] Care Team Providers Care Epoxy Coatings Installer Name Role Phone Katiana Araya MD Primary [...] age to complete this topic Care Teams Epoxy Coatings Installer Relationship Specialty Start Date End Date Katiana Araya MD [address] [place] [address] PCP - General Family Medicine 03/16/22
== END 2025-05-27 16:32 | disposition home or self-care (01) ==
LOC: HO.LAB 16:31
PROVIDERS: Visit Provider Urology
DX: N39.0 Urinary tract infection, site not specified (principal); N32.81 Overactive bladder
CPT/HCPCS: 87086

== ENCOUNTER 2025-06-02 10:10 | Day surgery (SDC) | payer OTHER, SELFPAY ==
--- OUTSIDE RECORDS SUMMARY | 2025-05-07 08:51 | XMS_ITS | Clinical Summary ---
Author Organization [facility] Address [address] [place] [phone] Phone Care Team Providers Care Lift Builder Whole Name Role Phone Physician, No Pcp Primary [...] Administration Dates Next Due DTP 11/14/1988, 6,07/22/1984,04/30,01/24/1984 [id number] (Pentacel) 2mo to less than 5yo 11/26/1986 [...] Comments OTHER SURGICAL HISTORY 11/24, 08/26 PROCEDURE: [place] ARTHRS AIDED ANT CRUCIATE LIGM RPR/AGMNTJ/RCNSTJ; COMMENT: ACL; right OTHER SURGICAL HISTORY 03/31 PROCEDURE: [place] OSTEOPLASTY RADIUS/ULNA SHORTENING WRIST SURGERY PROCEDURE: HISTORICAL WRIST SURGERY; COMMENT: cyst removal OTHER SURGICAL HISTORY 2008 PROCEDURE: NV ARTHRS KNEE W/MENISCECTOMY MED&LAT W/SHAVING; COMMENT: right OTHER SURGICAL HISTORY 03/23/2011 PROCEDURE: NV LAPS FULG/EXC OVARY VISCERA/PERITONEAL SURFACE; COMMENT: endometrioma left ovary, partial oophorectomy and cautery endometriosis TONSILLECTOMY PROCEDURE: HISTORICAL TONSILLECTOMY; COMMENT: 12/2011 CHOLECYSTECTOMY PROCEDURE: HISTORICAL CHOLECYSTECTOMY; COMMENT: 01/2012 APPENDECTOMY 04/28/2017 PROCEDURE: NV APPENDECTOMY Medical History Medical History Date Comments [...] Cancer Screening: Pap Smear 02/03/2020 02/02/2017, 02/02/2017 HIV Screening 08/27/2022 Hepatitis C Screening 08/27/2022 Social Influencers of Health Screening 08/27/2022 COVID-19 Vaccine ( season) 2024 07/21/2021 Depression Screening 09/24/2024 Influenza Vaccine (#1) 2025 , 07/22/2019, 06/11/2017, [...] Relevant to Health Maintenance Insurance Care Teams Lift Builder Whole Relationship Specialty Start Date End Date Physician, No Pcp PCP - General 10/22/24
--- OUTSIDE RECORDS SUMMARY | 2025-05-07 08:51 | XMS_ITS | Clinical Summary ---
Author Organization [facility] Address [address] [place] [address] [place] [phone] Phone Care Team Providers Care Sales Contract Administrator Name Role Phone Pcp, Not Required Primary Care Provider Unavaila ble Allergies Active Allergy Reactions Criticality Noted Date Comments Tadalafil Swelling 07/02/2024 All over body, but not in throat. Oxycodone-Acetaminoph en Nausea and/or Vomiting 07/02/2024 Medications No known medications Social History Tobacco Use Types Packs/Day Years Used Date Smoking Tobacco: Never Assessed Education Answer Date Recorded Are you interested in more education? Not on anastasia e 01/18/2023 Are you concerned about learning? Not on file 01/18/2023 No 01/18/2023 No 01/18/2023 Digital Access Answer Date Recorded No 02/19/2023 No 02/19/2023 No 02/19/2023 Reliable internet access at home? Not on file 02/19/2023 Device with a working camera? Not on file Intimate Partner Violence Answer Date R ecorded Are you denied basic needs s uch as food, clothing, or medical care? No 07/02/2024 In the past 12 months have y ou been in a relationship with a person who hurts, threatens, or tries to control you? No 07/02/2024 Are you denied basic needs s uch as food, clothing, or medical care? No 07/02/2024 In the past 12 months have y ou been in a relationship with a person who hurts, threatens, or tries to control you? No 07/02/2024 Comments Unknown Sex and Gender Information Value Date Recorded Sex Assigned at Female 07/03/2024 1:07 AM EDT Legal Sex Female 7:29 PM EST Gender Identity Female 07/03/2024 1:07 AM EDT Sexual Orientation Choose not to disclose 2023 1:07 AM EDT Last Filed Vital Signs Vital Sign Reading Time Taken Comments Blood Pressure 148/79 07/03/2024 12:39 AM EDT Pulse 75 07/03/2024 12:39 AM EDT Temperature 36.9 C (98.5 F) 07/03/2024 12:39 AM EDT Respiratory Rate 16 07/03/2024 12:39 AM EDT Oxygen Saturation 98% 07/03/2024 12:39 AM EDT Inhaled Oxygen Concentration - - Weight 81.6 kg (180 lb) 07/02/2024 9:09 PM EDT Height 160 cm (5' 3 ) 07/02/2024 9:09 PM EDT Body Mass Index 31.89 07/02/2024 9:09 PM EDT Plan of Treatment Health Maintenance Due Date Last Done Comments DEPRESSION SCREENING 1995 SMOKING Hx and SMOKELESS TOBACCO SCREENING 1996 HEPATITIS C SCREENING 2001 HIV ONE-TIME SCREENING (18-6 5 YEARS) 2001 PAP SMEAR 2004 Adult Td,Tdap Booster 07/15/2018 07/15/2008 , 12/21/1997 SCREENING FOR DIABETES 2018 MAMMOGRAM 2023 COVID-19 VACCINE (2023-2 5 season) 2024 07/21/2021 HIB VACCINES Completed 11/26/1986 MENINGOCOCCAL VACCINES (ACWY) Aged Out 03/25/2002 No longer eligible based on patient's age to complete this topic HEPATITIS A VACCINES Aged Out No long er eligible based on patient's age to complete this topic MENINGOCOCCAL VACCINES (B) Aged Out N o longer eligible based on patient's age to complete this topic PNEUMOCOCCAL VACCINES (0-49 years) Aged Out No longer eligible b ased on patient's age to complete this topic Medical Devices Not on file Insurance [address] [place], [place] [id number] [place], [place] [id number] Care Teams Sales Contract Administrator Relationship Specialty Start Date End Date Pcp, Not Required [address] [place] [phone] PCP - General 10/17/13 Additional Source Comments The information contained in this document represents components of the legal health record. It is not the complete legal health record.[facility]
--- OUTSIDE RECORDS SUMMARY | 2025-05-07 08:51 | XMS_ITS | Clinical Summary ---
Author Organization [facility] Address [address] [place] [address] Care Team Providers Care Ibm Mainframe Developer Name Role Phone Katiana Araya MD Primary [...] age to complete this topic Care Teams Ibm Mainframe Developer Relationship Specialty Start Date End Date Katiana Araya MD [address] [place] [address] PCP - General Family Medicine 03/16/22
[2025-05-29 13:06] VITALS: BMI 32.2
--- NOTE | 2025-06-01 10:49 | HO.ANESPROP2 ---
Documented by User: Cris Varela NP 06/01/25 10:49 HPI - Anesthesia Eval Consult details Narrative: 39 yr old female for Cystoscopy Bladder Botox Injection PMFSH Active Problems Active Problems: All Active Problems (Updated 09/29/24 @ 17:07 by Buzz Dasilva MD) OAB (overactive bladder) (Acute) Detrusor overactivity (Acute) Urinary urgency (Acute) Abnormal ultrasound (Acute) Sensation of pressure in bladder area (Acute) Lower urinary tract symptoms (Acute) UTI (urinary tract infection) (Acute) Microscopic hematuria (Acute) Pelvic pain (Acute) Uterine myoma (Acute) Adnexal fullness (Acute) Well woman exam (Acute) Past Medical History Medical History Endometriosis Thyroid disease Asthma Family History Family History Mother Prediabetes Father Diabetes Surgical History Surgical History History of ovarian cystectomy History of cholecystectomy History of appendectomy History of tonsillectomy H/O wrist surgery History of knee surgery Social History Social History Household Members: Family Housing: House Alcohol intake: current Alcohol intake frequency: holidays/special occasions only Patient Tobacco Use Status: Never used Tobacco Have you been hit, kicked, punched, or otherwise hurt by someone within the past year? 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 Sexual orientation: Straight/Heterosexual Gender identity: Female Meds Allergies Allergy/AdvReac Type Severity Reaction Status Date / Time tadalafil (From Cialis) Allergy Swelling Verified 04/02/25 16:10 From PERCOCET AdvReac Intermediate VOMITING Uncoded 12/05/24 14:40 Exam Height,Weight and Vital Signs: Height 5 ft 3 in Weight 82.554 kg Documented by User: Duyen Conway MD 06/02/25 10:41 PMFSH Past Medical History Medical History Endometriosis Thyroid disease Asthma Family History Family History Mother Prediabetes Father Diabetes Surgical History Surgical History History of ovarian cystectomy History of cholecystectomy History of appendectomy History of tonsillectomy H/O wrist surgery History of knee surgery History of Problems with Anesthesia: No Social History Social History Household Members: Family Housing: House Alcohol intake: current Alcohol intake frequency: holidays/special occasions only Patient Tobacco Use Status: Never used Tobacco Have you been hit, kicked, punched, or otherwise hurt by someone within the past year? 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 Sexual orientation: Straight/Heterosexual Gender identity: Female Meds Allergies Allergy/AdvReac Type Severity Reaction Status Date / Time tadalafil (From Cialis) Allergy Swelling Verified 04/02/25 16:10 From PERCOCET AdvReac Intermediate VOMITING Uncoded 12/05/24 14:40 Exam Airway Mallampati Class: II TM Dist: >3cm Neck ROM: Full Loose/Missing/Broken Teeth: No Heart: RRR Lungs: CTA Assessment and Plan Assessment Anesthesia Assessment: Anesthesia Plan Discussed and Chart Reviewed Final Anesthetic Review History of Problems with Anesthesia: No NPO: Yes ASA Class: II Final Preanesthetic Review: Meds/Allgs Chart Reviewed, Consent Obtained/Reviewed and Anes Risks/Benef Reviewed Patient Risk: Low Procedure Risk: Low Anesthetic Plan Anesthetic Plan: GA Disposition: Standard PACU
[2025-06-02 10:14] VITALS: BP 143/70; PULSE 82; RESP 16; TEMP 36.4; O2SAT 96; BMI 33.9
[2025-06-02 10:29] LABS: UPreg QC Valid YES
--- NOTE | 2025-06-02 10:34 | MHC.SHP ---
Pre-Procedural Eval Section A - 24 Hr Update-Section A only Date of Service: 06/02/25 The patient is an INPATIENT: No The patient has been examined within 24 hours of the surgical procedure. The History & Physical has been completed within 30 days and I have reviewed it.: Yes Section B - Complete if H&P > 30 days Chief Complaint: Overactive bladder Allergies: Allergies Allergy/AdvReac Type Severity Reaction Status Date / Time tadalafil (From Cialis) Allergy Swelling Verified 04/02/25 16:10 From PERCOCET AdvReac Intermediate VOMITING Uncoded 12/05/24 14:40 Plan Diagnosis/Plan: Unchanged I have reviewed the history and physical and performed a pertinent physical examination on my patient. No changes have occurred unless specified. Cystoscopy bladder botox injection, 100 units. I have discussed risks to include hematuria, UTI, urinary retention, need to repeat procedure for sustained efficacy. Time Spent With Patient Time: Total time managing care of this patient today ____ minutes.
--- NOTE | 2025-06-02 10:35 | W.PM.OPN ---
Operative Note Operative Note Date of Service: 06/02/25 Narrative: PREOP DIAGNOSIS: OAB POSTOP DIAGNOSIS: OAB PROCEDURE: CYSTOSCOPY, BLADDER BOTOX INJECTION 100 UNITS SURGEON: Buzz Dasilva MD ANESTHESIA: General Details of procedure: The patient was brought into the operating room placed on the OR table in supine position. Antibiotics confirmed. General anesthesia was administered. The patient was repositioned into lithotomy position, prepped and draped in the usual sterile fashion. Time-out was done per protocol. A 22 fr cystoscope was placed transurethrally into the bladder. The right and left ureteral orifices were visualized. There were no suspicious bladder lesions seen. The Botox 100 units was mixed with 10 cc of normal saline and transurethral injections were placed into the posterior wall of the bladder. 0.5cc placed at each injection site. Injections were placed in a grid 5 across and 4 longitudinally. Injections were placed from the inferior to superior position. 2% lidocaine urojet was passed transurethrally into the bladder. The patient was brought out of anesthesia and taken to recovery in stable condition. Complications: None EBL: minimal (<5 mL) Drains: none
[2025-06-02] MEDS: Lactated Ringers 1,000 ML 100 ML IVCONT (10:36)
[2025-06-02 11:20] VITALS: BP 112/66; PULSE 66; RESP 18; TEMP 37.3; O2SAT 98
[2025-06-02 11:25] VITALS: BP 107/63; PULSE 64; RESP 13; O2SAT 98
[2025-06-02 11:30] VITALS: BP 110/59; PULSE 62; RESP 14; O2SAT 100
[2025-06-02 11:35] VITALS: BP 109/54; PULSE 71; RESP 15; O2SAT 96
[2025-06-02 11:50] VITALS: BP 144/51; PULSE 70; RESP 20; TEMP 37; O2SAT 98
== END 2025-06-02 12:16 | disposition home or self-care (01) ==
PROVIDERS: Nurse Practitioner; PCP Pediatrics; Visit Provider Urology
PROC: 3E0K8GC Introduction of Other Therapeutic Substance into Genitourinary Tract, Via Natural or Artificial Opening Endoscopic (ICD-10-PCS; CPT 52287; principal; 2025-06-02 12:10)
DX: N32.81 Overactive bladder (principal); R39.15 Urgency of urination; E07.9 Disorder of thyroid, unspecified; J45.909 Unspecified asthma, uncomplicated; N80.9 Endometriosis, unspecified; Z79.899 Other long term (current) drug therapy; Z88.5 Allergy status to narcotic agent; Z88.8 Allergy status to other drugs, medicaments and biological substances; Z98.890 Other specified postprocedural states
CPT/HCPCS: 52287; 81025; J0585; J0690; J1100; J2003; J2250; J2405; J2704; J3010

== ENCOUNTER → 2025-06-02 10:10 | Outpatient (BNV) | payer OTHER, SELFPAY | PROVIDERS: PCP Pediatrics; Visit Provider Urology | DX: N32.81 Overactive bladder (principal) | CPT/HCPCS: 52287 ==

== ENCOUNTER → 2025-06-15 11:05 | Outpatient (BNVA) | payer OTHER, SELFPAY | PROVIDERS: PCP Pediatrics; Visit Provider Urology | DX: N32.81 Overactive bladder (principal) | CPT/HCPCS: 51798 ==

== ENCOUNTER 2025-06-18 10:21 | Outpatient (AMB) | payer OTHER, SELFPAY ==
--- NOTE | 2025-06-18 10:22 | A.OFFVIS_ITS ---
Intake Visit Reasons: u/s results Allergies tadalafil (From Cialis) Allergy (Verified 04/02/25 16:10) Swelling From PERCOCET Adverse Reaction (Intermediate, Uncoded 12/05/24 14:40) VOMITING HPI Comments Details: The patient scheduled a follow-up ultrasound regarding uterine myoma seen on previous pelvic ultrasound. The patient is doing well with no complaints no abnormal uterine bleeding, pelvic pressure or pain. Pelvic ultrasound done recently showed the following: Anteverted uterus measuring 6.4 x 3.2 x 4.1 cm with an intramural fibroid measuring 0.6 x 0.5 x 0.6 cm. The other previously seen fibroids are not visualized. Normal endometrial thickness of 0.2 cm. Small calcification, unchanged. The right ovary is nonenlarged, measuring 1.2 x 1.3 x 1.4 cm, volume of 1.1 mL. There is normal echogenicity and vascularity. No lesions. The left ovary is not visualized. No lesions in the left adnexa. No free fluid. Impression: Subcentimeter fibroid. No acute findings. 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 Sexual orientation: Straight/Heterosexual Gender identity: Female Female Reproductive History Menstrual Age of Menarche: 11 Review of Systems Const All systems reviewed & are unremarkable except as noted in HPI and below Reports as per HPI and Reports no additional complaints GI Reports no additional complaints Reports no additional complaints Telehealth Telehealth Telehealth Platform: [employer] Location of provider rendering services: practice address Location of patient: address on file Patient Identification confirmed using: Name, : Yes Telehealth method: video Patient verbally consented to treatment: Yes Patient verbally consented to billing insurance company: Yes Patient informed of any privacy concerns related to visit: Yes Minutes spent on Phone/Video with Pt.: 2 Assessment & Plan Assessment & Plan (1) Uterine myoma: Code(s): D25.9 - Leiomyoma of uterus, unspecified Category: Medical Plan: Discussed with the patient the findings on pelvic ultrasound & the risk of myosarcoma; in addition reviewed with the patient that malignancy and pre malignancy cannot be ruled out without hysterectomy for pathological evaluation ; furthermore, explained to the patient the limitation of pelvic ultrasound and endometrial biopsy in the setting. Discussed with the patient the options of treatment including expectant management versus hysterectomy; the pros and cons, risks benefits of each approach were discussed with the patient including the fact that in cases of myosarcoma, surgical treatment can lead to early diagnosis and positively affects the prognosis; after further discussion, the patient decided to proceed with expectant management. Will repeat pelvic ultrasound periodically. Instructions given to patient to call in case any of the following occurs: pressure symptoms, abnormal uterine bleeding, pelvic pain; and to schedule a 12- months pelvic ultrasound (order placed) and a follow-up appointment . All questions answered, the patient verbalized understanding and agreed with the plan . I spent a total of 20 minutes reviewing the chart, talking to the patient via vi declan and documenting in the medical record. Orders: Orders US pelvic and transvaginal 1 Year D25.9 - Leiomyoma of uterus, unspecified Coding Level of Care Code Tele Est Pt Level 3 (18428) Diagnoses Uterine myoma D25.9
== END 2025-06-18 10:32 | disposition home or self-care (01) ==
LOC: HO.HWS 10:21
PROVIDERS: PCP Pediatrics; Visit Provider Obstetrics & Gynecology
DX: D25.9 Leiomyoma of uterus, unspecified (principal)
CPT/HCPCS: 99213

== ENCOUNTER 2025-07-22 15:24 | Outpatient (AMB) | payer OTHER, SELFPAY ==
--- NOTE | 2025-07-22 15:26 | MHC.OFFVIS ---
Vital Signs 07/22/25 15:45 BP 118/66 Intake Visit Reasons: BP check/follow up BC Allergies tadalafil (From Cialis) Allergy (Verified 04/02/25 16:10) Swelling From PERCOCET Adverse Reaction (Intermediate, Uncoded 12/05/24 14:40) VOMITING HPI Comments Details: Presenting for control pill follow-up with no complaints 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 Sexual orientation: Straight/Heterosexual Gender identity: Female Female Reproductive History Menstrual Age of Menarche: 11 Review of Systems Const All systems reviewed & are unremarkable except as noted in HPI and below Reports as per HPI and Reports no additional complaints GI Reports no additional complaints Reports no additional complaints Physical Exam Vital Signs: Last Vital Signs BP 118/66 07/22/25 15:45 Assessment & Plan Assessment & Plan (1) Contraceptive management: Code(s): Z30.9 - Encounter for contraceptive management, unspecified Category: Medical Plan: control pill prescription refill sent to the patient's pharmacy. All questions answered, the patient verbalized understanding Medications: Refilled levonorgestrel-ethinyl estrad 0.15-0.03 mg Take 1 tablet a day for 28 days Ninety day supply 1 tab PO DAILY 84 tabs 3RF 28 days Coding Level of Care Code Est Pt Level 3 (83059) Diagnoses Contraceptive management Z30.9
[2025-07-22 15:45] VITALS: BP 118/66
--- OUTSIDE RECORDS SUMMARY | 2025-07-22 19:45 | XMS_ITS | Data Portability ---
Author Organization [place] [facility] [place] Address [address] [place] [address] Assessment Encounter Date Assessment Date Assessment LastModified by Organization Details LastModified Time 03/26/2023 03/26/2023 Persistent right knee medially based pain following a contusion. History of an arthroscopy back in June 2022 after she did very well. I reviewed treatment options with her. This included a discussion regarding observation, consideration of an intra-articular injection, physical therapy, consideration of the medial stock feeder brace. She is apprehensive about an injection, decided on trying physical therapy. We will request authorization for the medial stock feeder brace. If no improvement consider the injection [...] will follow-up in [address] Jmienez to assess her progress, sooner for any [...] exercises. Icing protocol reviewed. She can use tfyx-qeb-zwabgcj anti-inflammator ies and Tylenol as needed with [...] injection, physical therapy, consideration of the medial stock feeder brace. She is apprehensive about an injection, decided on trying physical therapy. We will request authorization for the medial stock feeder brace. If no improvement consider the injection [...] She may continue to use as needed ofwz-onv-ixlocsg Tylenol with appropriate GI precautions, side effects [...] exercises. Icing protocol reviewed. She can use qyhg-yvm-hdurxic anti-inflammator ies and Tylenol as needed with [...] injection, physical therapy, consideration of the medial stock feeder brace. She is apprehensive about an injection, decided on trying physical therapy. We will request authorization for the medial stock feeder brace. If no improvement consider the injection [...] She may continue to use as needed smry-kdm-wgmxjdo Tylenol with appropriate GI precautions, side effects [...] exercises. Icing protocol reviewed. She can use tint-tve-tbbcaee anti-inflammator ies and Tylenol as needed with [...] injection, physical therapy, consideration of the medial stock feeder brace. She is apprehensive about an injection, decided on trying physical therapy. We will request authorization for the medial stock feeder brace. If no improvement consider the injection [...] She may continue to use as needed vmte-rex-eglrqww Tylenol with appropriate GI precautions, side effects [...] exercises. Icing protocol reviewed. She can use osxm-own-uwevpiy anti-inflammator ies and Tylenol as needed with [...] injection, physical therapy, consideration of the medial stock feeder brace. She is apprehensive about an injection, decided on trying physical therapy. We will request authorization for the medial stock feeder brace. If no improvement consider the injection [...] MCL sprain versus meniscal injury [address] [facility] ([facility] [address], [place], [address], 12:27:32 XR, knee, 3 view 2024 025 [email or web address] [facility], [address], [address], [place], [address], 14:39:08 Medication Orders Lidoderm 5 % topical patch 2024 025 [id number], [address], [place], [id number], 5 13:24:47 Patient TargetsNo targets recorded. Patient InstructionsNo instructions recorded. Reason for Referral Physical Therapist Referral for Contusion of right knee Referring Physician: Jhony Jimenez, Orthopedic Surgery, Encounter Date: 03/26/2023 Results Created Date Observation Date Name Description Value Unit Range Abnormal Flag Note LastModifiedBy Organization Detail LastModifiedTime 03/05/2003/04/2025 MRI, knee, w/o contr ast No observ ation record ed. [email or web address] [facility] At [address], [address], 03/05/2025 20:50:14 Result Notes None recorded. Problems Name Problem SNOMED Code Status Onset Date Resolution Date Notes Provider Name and Address Organization Details Recorded Time Pain of knee region 4818671354 Active 2021 Acute pain of right knee Not Available [facility] 5 23:23:00 Contusion of right knee 7176647324172 9104 Active [address], [place], [address] , [place] [facility], [facility] 3 17:16:18 Sprain of medial collateral ligament of knee 90046259 Active [address], [place], [address] , [place] [facility], [facility] 3 17:16:26 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 530389595 Active [address], [place], [address] , [place] [facility], [facility] 3 09:52:40 Pes anserinus bursitis of right knee 0793266770156 109 Active [address], [place], [address] , [place] [facility], [facility] 3 09:45:30 Osteoarthr itis of right knee joint 7794736436633 00 Active 2022 Jhony Jimenez MD [address], [place], [address] , [place] [facility] 3 09:45:32 Pain of left knee joint 5133312343372 07 Active 2024 Jhony Jimenez MD [address], [place], [address] , [place] [facility], [facility] 5 14:10:43 Problem Notes None recorded. Procedures Surgical History Date Name Laterality Status Provider Name and Address Organization Details Recorded Time cholecystectomy completed [facility] 01/27/2025 14:07:08 appendectomy completed [facility] 01/27/2025 14:07:19 tonsillectomy completed [facility] 01/27/2025 14:07:25 Imaging Results None recorded. Procedure Notes None recorded. Medical Equipment None Reported. Allergies Allergen ID Allergen Name Allergen Category Reaction Reaction Severity Criticality Documentation Date Start Date Code Code System Note Provider Name and Address Organization Details Recorded Time 555 acetamino phen / oxycodone medicatio n Not available Not available Not available 12/11/2022 54949 3 RxNorm Christine newman, [facility], P 3 15:45:23 66185 acetamino phen / oxycodone medicatio n Not available Not available Not available 06/16/20252012 80818 3 RxNorm React ion: Nause a And Vomit ing, sever ity: Unkno wn Not Available [facility] 5 01:12:36 Medications Name Sig Start Date Stop Date [...] Not Available ondansetron HCl 4 mg tablet Take 1 tablet (4 mg total) by mouth daily as needed for nausea (after surgery). 03/16 completed Not Available Not Available Not Available aspirin 81 mg tablet,andrés yed release Take 1 tablet (81 mg total) by mouth 2 (two) times a day. 2021 active Not Available Not Available Not Avai lable meloxicam 7.5 mg tablet Take 2 tablets (15 mg total) by mouth daily for 7 doses. Start the day after surgery 03/16 completed Not Available Not Available Not Available cephalexin 500 mg capsule Take 1 capsule (500 mg total) by mouth 4 (four) times a day. Start after surgery 03/16 completed Not Available Not Available Not Available lidocaine 5 % topical patch APPLY 1 PATCH TOPICALLY TO THE SKIN DAILY. MAY WEAR UP TO 12 HOURS active Not Available Not Available No t Available gabapentin 300 mg capsule Take 1 capsule (300 mg total) by mouth daily. Start first dose the evening prior to surgery 03/16 completed Not Available Not Available Not Available oxycodone 5 mg tablet Take 1 tablet (5 mg total) by mouth every 6 (six) hours as needed for pain. Do not start until after surgery 03/16 completed Not Available Not Available Not Available tadalafil 5 mg tablet TAKE ONE TABLET BY MOUTH EVERY DAY 03/16 completed Not Available Not Available Not Available Desean (28) 0.15 mg-0.03 mg tablet TAKE 1 TABLET OP EVERY DAY active Not Available Not Available No t Available Vitals Date Recorded Body height Body mass index (BMI) Body weight Provider Name and Address Organization Details Last Updated DateTime 01/27/2025 160.02 cm 27.6 kg/m2 66065.[address] [place] [facility], 01/27/2025 14:06:19 Date Recorded Body height Body mass index (BMI) Body weight Provider Name and Address Organization Details Last Updated DateTime 03/16/2025 160.02 cm 27.5 kg/m2 21412.[address] [place] [facility], [facility] 03/16/2025 13:12:22 Date Recorded Body height Body mass index (BMI) Body weight Provider Name and Address Organization Details Last Updated DateTime 03/26/2023 160.02 cm 27.5 kg/m2 [address]351.[address] [place] [facility] 03/26/2023 09:04:15 Date Recorded Body height Body mass index (BMI) Body weight Provider Name and Address Organization Details Last Updated DateTime 05/22/2023 160.02 cm 27.5 kg/m2 [address]53.[address] [facility] 05/22/2023 16:26:10 Social History None recorded. Functional Status Question Answer Note LastModified by Organizat ion Details LastModified Time Do you use any illicit or recreational drugs? No [email or web address] Information not available 12/11/2022 Do you or have you ever used any other forms of tobacco or nicotine? No [email or web address] Information not available 12/11/2022 What is your level of alcohol consumption? Occasional [email or web address] Information not available 12/11/2022 Are you currently employed? 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 Family History Relationship Description Onset Age of this Age Resolved Age Notes LastModified by Organization Details LastModified Time Father Diabetes mellitus [email or web address] Not available 2022 15:46:31 Mother Diabetes mellitus [email or web address] Not available 2022 15:46:35 Mother Heart disease [email or web address] Not available 16:26:03 Medical History Condition Response Anemia Y Reflux/GERD Y Asthma Y Gynecological HistoryNo gynecological history recorded. Obstetrics History GPAL:G 0 P 0 0 0 0 Past Encounters Encounter ID Performer Location Encounter Start Date Encounter Closed Date Diagnosis/Indication Diagnosis SNOMED-CT Code Diagnosis ICD10 Code Diagnosis IMO Codes Diagnosis Note [id number] [address] [place] [address] 12/11/2022 15:24:09 12/11/2022 16:12:06 Contusion of right knee 8514049382 0611142 S80.01XD Sprain of medial collateral ligament of knee 60250658 S83.411D History of reconstruction of anterior cruciate ligament tear 925679219 Z98.890 [id number] [address] 02/12/2023 15:05:06 02/12/2023 15:34:39 Sprain of medial collateral ligament of knee 52162135 S83.411D Contusion of right knee 9227805535 7481589 S80.01XD History of reconstruction of anterior cruciate ligament tear 689859987 Z98.890 [id number] MD TANIA [address] [address] 03/26/2023 09:01:45 03/26/2023 09:30:09 Contusion of right knee 8914201559 9938091 S80.01XD Sprain of medial collateral ligament of knee 31450247 S83.411D History of reconstruction of anterior cruciate ligament tear 444582574 Z98.890 Osteoarthr itis of right knee joint 5190028080 78815 M17.11 Pes anseri nus bursitis of right knee 3331639610 809244 M70.51 [id number] AL[address]ERT [address]ERNIGAN [address] [place] [address] 05/22/2023 16:21:35 05/22/2023 16:39:39 History of reconstruction of anterior cruciate ligament tear 135906457 Z98.890 Contusion of right knee 1759059755 0981859 S80.01XD Sprain of medial collateral ligament of knee 26937388 S83.411D Osteoarthr itis of right knee joint 0967112326 75709 M17.11 [id number] MD FABI Bingham [address] [place] [address] 01/27/2025 13:58:30 01/27/2025 14:25:49 History of reconstruction of anterior cruciate ligament tear 285403018 Z98.890 right Osteoarthr itis of right knee joint 1210957544 40754 M17.11 Pain of le ft knee joint 5425345226 96802 M25.562 [id number] JODIE CASPER PA-C [address] [place] [address] 02/19/2025 14:50:49 02/19/2025 15:38:37 Pain of left knee joint 9292213069 55030 M25.562 [id number] History of reconstruction of anterior cruciate ligament tear 266981541 Z98.890 right Osteoarthr itis of right knee joint 2417532114 10914 M17.11 [id number] Jhony Jimenez MD [facility] [address] [facility] [address] [place] [address] 03/16/2025 13:04:33 03/16/2025 13:31:49 Pain of left knee joint 8120212939 90804 M25.562 417276 History of reconstruction of anterior cruciate ligament tear 852609500 Z98.890 right Osteoarthr itis of right knee joint 8653313419 00443 M17.11 Health Concerns Section Related Observation LastModified by Organization Detai ls LastModified Time None Recorded Concern Status LastModified by Organization Details LastModified Time None Recorded Advance Directives Directive None Recorded Payers None recorded. Notes Date Note Type Note Provider Name and Address Organization Details Recorded Time 03/26/2023 text/html ROS as noted in the HPI She was doing very well up until she [...] pain to the hip or ankle. 07/13/2022 ([facility]): Right knee PMM, chondroplasty notch. Intact ALCR [...] Jhony Jimenez MD [address], [place], [address], [place] [facility] 03/26/2023 09:45:45 05/22/2023 text/html ROS as noted in the HPI Carmella presents the office today to follow-up on her ongoing right knee pain. She reports she feels improved since her last visit. Her pain is down to a 3/10 on average. Well controlled with llna-jwx-kpepcdk anti-inflammatories and icing as needed. She has been walking at least once daily with minimal difficulty. Denies any significant swelling. Previous feelings of instability are much less frequent. She decided not to do physical therapy nor use the medial stock feeder brace. She is going to try a [...] JODIE CASPER PA-C [address], [place], [address], [place] [facility] 05/22/2023 17:07:40 01/27/2025 text/html ROS as noted in the HPI Patient returns to the office after a [...] of acid reflux. 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 PRIOR SURYA 05/22/23:Carmella presents the office today to follow-up on her ongoing right knee pain. She reports she feels improved since her last visit. Her pain is down to a 3/10 on average. Well controlled with lwcl-crg-jpfonhs anti-inflammatories and icing as needed. She has been walking at least once daily with minimal difficulty. Denies any significant swelling. Previous feelings of instability are much less frequent. She decided not to do physical therapy nor use the medial stock feeder brace. She is going to try a [...] Jhony Jimenez MD [address], [place], [address], [place] [facility], [facility] 02/07/2025 09:35:48 02/19/2025 text/html ROS as noted in the HPI Patient returns to the office today for [...] of acid reflux. 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 PRIOR SURYA 05/22/23:Carmella presents the office today to follow-up on her ongoing right knee pain. She reports she feels improved since her last visit. Her pain is down to a 3/10 on average. Well controlled with bfgu-boo-jnvwued anti-inflammatories and icing as needed. She has been walking at least once daily with minimal difficulty. Denies any significant swelling. Previous feelings of instability are much less frequent. She decided not to do physical therapy nor use the medial stock feeder brace. She is going to try a [...] JODIE CASPER PA-C [address], [place], [address], [place] [facility] 02/24/2025 07:41:37 03/16/2025 text/html ROS as noted in the HPI Patient returns for reevaluation of her ongoing [...] of acid reflux. 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 She reports she feels improved since her last visit. Her pain is down to a 3/10 on average. Well controlled with vcns-yir-idsugiq anti-inflammatories and icing as needed. She has been walking at least once daily with minimal difficulty. Denies any significant swelling. Previous feelings of instability are much less frequent. She decided not to do physical therapy nor use the medial stock feeder brace. She is going to try a [...] Jhony Jimenez MD [address], [place], [address], [place] [facility] 03/16/2025 14:25:39 OBGyn Episode No OBEpisode recorded.
--- OUTSIDE RECORDS SUMMARY | 2025-07-22 19:45 | XMS_ITS | Clinical Summary ---
Author Organization [facility] Address [address] [place] [phone] Phone Care Team Providers Care Correctional Guard Name Role Phone Physician, No Pcp Primary [...] then progestin contraceptive Allergic rhinitis 02/09/2006 Immunizations Immunization Administration Dates Next Due DTP 11/14/1988, 6,07/22/1984,04/30,01/24/1984 [id number]-DBG-ZBS (Pentacel) 2mo to less than 5yo 11/26/1986 [...] Comments OTHER SURGICAL HISTORY 11/24, 08/26 PROCEDURE: KS ARTHRS AIDED ANT CRUCIATE LIGM RPR/AGMNTJ/RCNSTJ; COMMENT: ACL; right OTHER SURGICAL HISTORY 03/31 PROCEDURE: KS OSTEOPLASTY RADIUS/ULNA SHORTENING WRIST SURGERY PROCEDURE: HISTORICAL WRIST SURGERY; COMMENT: cyst removal OTHER SURGICAL HISTORY 2008 PROCEDURE: KS ARTHRS KNEE W/MENISCECTOMY MED&LAT W/SHAVING; COMMENT: right OTHER SURGICAL HISTORY 03/23/2011 PROCEDURE: KS LAPS FULG/EXC OVARY VISCERA/PERITONEAL SURFACE; COMMENT: endometrioma left ovary, partial oophorectomy and cautery endometriosis TONSILLECTOMY PROCEDURE: HISTORICAL TONSILLECTOMY; COMMENT: 12/2011 CHOLECYSTECTOMY PROCEDURE: HISTORICAL CHOLECYSTECTOMY; COMMENT: 01/2012 APPENDECTOMY 04/28/2017 PROCEDURE: KS APPENDECTOMY Medical History Medical History Date Comments [...] 2025 , 07/22/2019, 06/11/2017, Additional history exists RSV Immunization Adult Patients (1 - 1-dose 75+ series) 2058 HIB Vaccines Completed 11/26/1986, 11/26/1986 IPV Vaccines [...] Procedure Name Priority Date/Time Associated Diagnosis Comments HPV Routine 02/02/2017 from Last 3 Months or Most Recently Relevant to Health Maintenance Results * Cervical Cancer Screening: HPV (02/02/2017) Cervical Cancer Screening: HPV Negative, Abstracted Historical Provider MD HEALTH MAINTENANCE Final Result from Last 3 Months or Most Recently Relevant to Health Maintenance Insurance Care Teams Correctional Guard Relationship Specialty Start Date End Date Physician, No Pcp PCP - General 10/22/24
--- OUTSIDE RECORDS SUMMARY | 2025-07-22 19:45 | XMS_ITS | Clinical Summary ---
Author Organization [facility] Address [address] [place] [address] [place] [phone] Phone Care Team Providers Care Back Up Machine Operator Name Role Phone Pcp, Not Required Primary [...] 998 SCREENING FOR DIABETES 2018 MAMMOGRAM 2023 INFLUENZA VACCINE (#1) 2025 , 07/22/2019, 08/01/2015, Additional history exists COVID-19 VACCINE ( season) 2025 07/21/2021 HIB VACCINES Completed 11/26/1986 MENINGOCOCCAL VACCINES [...] Not on file Insurance [address] [place], [place] [address] [place], [place] [address] [place], [place] [address]O Care Teams Back Up Machine Operator Relationship Specialty Start Date End Date Pcp, Not Required [address] [place] [address] PCP - General 10/17/13 Additional Source Comments The information contained in this document represents components of the legal health record. It is not the complete legal health record.[facility]
--- OUTSIDE RECORDS SUMMARY | 2025-07-22 19:45 | XMS_ITS | Clinical Summary ---
Author Organization [facility] Address [address] [place] [address] Care Team Providers Care Senior C Software Engineer Name Role Phone Katiana Araya MD Primary [...] age to complete this topic Care Teams Senior C Software Engineer Relationship Specialty Start Date End Date Katiana Araya MD [address] [place] [address] PCP - General Family Medicine 03/16/22
== END 2025-07-22 15:54 | disposition home or self-care (01) ==
LOC: HO.HWS 15:25
PROVIDERS: PCP Pediatrics; Visit Provider Obstetrics & Gynecology
DX: Z30.9 Encounter for contraceptive management, unspecified (principal)
CPT/HCPCS: 99213

== ENCOUNTER 2025-09-03 14:01 | Outpatient (AMB) | payer OTHER, SELFPAY ==
--- NOTE | 2025-09-03 14:16 | A.OFFVIS_ITS ---
Intake Visit Reasons: OAB/Botox follow up (set(UA+PVR) Intake Note: Patient is present for Botox follow up for OAB * 06/02 Botox Urology Medication:NONE Antibiotic Allergy:NONE Blood Thinner:NONE PVR:0ml Director Sports Required: No Allergies tadalafil (From Cialis) Allergy (Verified 09/03/25 14:18) Swelling From PERCOCET Adverse Reaction (Intermediate, Uncoded 12/05/24 14:40) VOMITING 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 Sexual orientation: Straight/Heterosexual Gender identity: Female Female Reproductive History Menstrual Age of Menarche: 11 Office Procedures Post Void Residual Post Residual Void Post Void Residual (PVR): 0 18921-Hvrt Void Residual by ultrasound Results AMB Urinalysis, Automated UA Leukoctes 0 Aleshia/uL Last Edit by July Frankel on 09/03/25 16:38 UA Nitrite Negative Last Edit by July Frankel on 09/03/25 16:38 UA Urobilinogen 0.2 mg/dL Last Edit by July Frankel on 09/03/25 16:38 UA Protein 15 mg/dL Last Edit by July Frankel on 09/03/25 16:38 UA pH 5.5 Last Edit by July Frankel on 09/03/25 16:38 UA Blood 0 Sudeep/uL Last Edit by July Frankel on 09/03/25 16:38 UA Specific [place] 1.025 Last Edit by July Frankel on 09/03/25 16:38 UA Ketone Negative Last Edit by July Frankel on 09/03/25 16:38 UA Bilirubin 0 mg/dL Last Edit by July Frankel on 09/03/25 16:38 UA Glucose 0 mg/dL Last Edit by July Frankel on 09/03/25 16:38 Assessment & Plan Assessment & Plan Orders: Orders AMB Urinalysis Automated Today Z13.9 - Encounter for screening, unspecified AMB Post Void Residual by ultrasound Today N32.81 - Overactive bladder Coding CPT Codes Post Residual Void - PVR CPT Code: 21524-Kgsj Void Residual by ultrasound ([id number])
--- OUTSIDE RECORDS SUMMARY | 2025-09-03 21:31 | XMS_ITS | Clinical Summary ---
Author Organization [facility] Prior to 02/21/[address] [place] [id number] Care Team Providers Care Light Out Examiner Name Role Phone Katiana Araya MD Primary [...] age to complete this topic Care Teams Light Out Examiner Relationship Specialty Start Date End Date Katiana Araya MD [address] [place] [address] PCP - General Family Medicine 03/16/22
--- OUTSIDE RECORDS SUMMARY | 2025-09-03 21:31 | XMS_ITS | Clinical Summary ---
Author Organization [facility] Address [address] [place] [phone] Phone Care Team Providers Care Employee Relations Administrator Name Role Phone Physician, No Pcp Primary [...] Administration Dates Next Due DTP 11/14/1988, 6,07/22/1984,04/30,01/24/1984 AKmL-GCC-VHQ (Pentacel) 2mo to less than 5yo 11/26/1986 [...] Comments OTHER SURGICAL HISTORY 11/24, 08/26 PROCEDURE: DC ARTHRS AIDED ANT CRUCIATE LIGM RPR/AGMNTJ/RCNSTJ; COMMENT: ACL; right OTHER SURGICAL HISTORY 03/31 PROCEDURE: DC OSTEOPLASTY RADIUS/ULNA SHORTENING WRIST SURGERY PROCEDURE: HISTORICAL WRIST SURGERY; COMMENT: cyst removal OTHER SURGICAL HISTORY 2008 PROCEDURE: DC ARTHRS KNEE W/MENISCECTOMY MED&LAT W/SHAVING; COMMENT: right OTHER SURGICAL HISTORY 03/23/2011 PROCEDURE: DC LAPS FULG/EXC OVARY VISCERA/PERITONEAL SURFACE; COMMENT: endometrioma left ovary, partial oophorectomy and cautery endometriosis TONSILLECTOMY PROCEDURE: HISTORICAL TONSILLECTOMY; COMMENT: 12/2011 CHOLECYSTECTOMY PROCEDURE: HISTORICAL CHOLECYSTECTOMY; COMMENT: 01/2012 APPENDECTOMY 04/28/2017 PROCEDURE: DC APPENDECTOMY Medical History Medical History Date Comments [...] not to disclose 2024 8:51 PM EST Last Filed Vital Signs Vital Sign Reading [...] exists Cervical Cancer Screening: Pap Smear 02/03/2020 02/02/2017 HIV Screening 08/27/2022 Hepatitis C Screening [...] Name Priority Date/Time Associated Diagnosis Comments HM PAP SMEAR Routine 02/02/2017 from Last 3 Months or Most Recently Relevant to Health Maintenance Results * Pap Smear (02/02/2017) Pap smear Negative, Abstracted us Historical Provider MD HEALTH MAINTENANCE Final Result from Last 3 Months or Most Recently Relevant to Health Maintenance Insurance [facility] Care Teams Employee Relations Administrator Relationship Specialty Start Date End Date Physician, No Pcp PCP - General 10/22/24
--- OUTSIDE RECORDS SUMMARY | 2025-09-03 21:31 | XMS_ITS | Clinical Summary ---
Author Organization [facility] Address [address] [place] [address] [place] [phone] Phone Care Team Providers Care Pickle Cutter Name Role Phone Pcp, Not Required Primary [...] Not on file Insurance [address] [place], [place] [id number] [place], [place] [id number] [place], [place] [id number] Care Teams Pickle Cutter Relationship Specialty Start Date End Date Pcp, Not Required PCP - General 10/17/13 Additional Source Comments The information contained in this document represents components of the legal health record. It is not the complete legal health record.[facility]
--- OUTSIDE RECORDS SUMMARY | 2025-09-03 21:31 | XMS_ITS | Data Portability ---
Author Organization [place] [facility] [place] Address [address] [place] [address] Assessment Encounter Date Assessment Date Assessment LastModified by Organization Details LastModified Time 03/26/2023 03/26/2023 Persistent right knee medially based pain following a contusion. History of an arthroscopy back in June 2022 after she did very well. I reviewed treatment options with her. This included a discussion regarding observation, consideration of an intra-articular injection, physical therapy, consideration of the medial channel opener brace. She is apprehensive about an injection, decided on trying physical therapy. We will request authorization for the medial channel opener brace. If no improvement consider the injection [...] exercises. Icing protocol reviewed. She can use lmnz-ypz-gaumxlo anti-inflammator ies and Tylenol as needed with [...] injection, physical therapy, consideration of the medial channel opener brace. She is apprehensive about an injection, decided on trying physical therapy. We will request authorization for the medial channel opener brace. If no improvement consider the injection [...] She may continue to use as needed rxsy-sjn-xpvxkyt Tylenol with appropriate GI precautions, side effects [...] exercises. Icing protocol reviewed. She can use txyx-gse-uisjxhy anti-inflammator ies and Tylenol as needed with [...] injection, physical therapy, consideration of the medial channel opener brace. She is apprehensive about an injection, decided on trying physical therapy. We will request authorization for the medial channel opener brace. If no improvement consider the injection [...] She may continue to use as needed tbxg-ovs-zxmcvws Tylenol with appropriate GI precautions, side effects [...] exercises. Icing protocol reviewed. She can use lvdy-dva-qxzkvgj anti-inflammator ies and Tylenol as needed with [...] injection, physical therapy, consideration of the medial channel opener brace. She is apprehensive about an injection, decided on trying physical therapy. We will request authorization for the medial channel opener brace. If no improvement consider the injection [...] She may continue to use as needed wywz-fpc-lwvmqiu Tylenol with appropriate GI precautions, side effects [...] exercises. Icing protocol reviewed. She can use beyi-xmv-grdqzlr anti-inflammator ies and Tylenol as needed with [...] injection, physical therapy, consideration of the medial channel opener brace. She is apprehensive about an injection, decided on trying physical therapy. We will request authorization for the medial channel opener brace. If no improvement consider the injection [...] MCL sprain versus meniscal injury 2024 025 [facility] [address], [place], [address], 12:27:32 XR, knee, 3 view 2024 025 [email or web address] [facility], [address], [address], [place], [address], 14:39:08 Medication Orders Lidoderm 5 % topical patch 2024 025 [id number], [address] [place], [place], [id number], 5 13:24:47 Patient TargetsNo targets recorded. Patient InstructionsNo instructions recorded. Reason for Referral Physical Therapist Referral for Contusion of right knee Referring Physician: Jhony Jimenez, Orthopedic Surgery, Encounter Date: 03/26/2023 Results Created Date Observation Date Name Description Value Unit Range Abnormal Flag Note LastModifiedBy Organization Detail LastModifiedTime 03/05/2003/04/2025 MRI, knee, w/o contr ast No observ ation record ed. [email or web address] [facility] [address], [address], 03/05/2025 20:50:14 Result Notes None recorded. Problems Name Problem SNOMED Code Status Onset Date Resolution Date Notes Provider Name and Address Organization Details Recorded Time Pain of knee region 5999441132 Active 2021 [facility] pain of right knee [facility] Available [facility] 23:23:00 Contusion of right knee 7753841107538 9104 Active [address], [place], [address] , [place] [facility], [facility] 3 17:16:18 Sprain of medial collateral ligament of knee 03018660 Active [address], [place], [address] , [place] [facility], [facility] 3 17:16:26 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 980201746 Active [address], [place], [address] , [place] [facility], [facility] 3 09:52:40 Pes anserinus bursitis of right knee 1972197384460 109 Active [address], [place], [address] , [place] [facility], [facility] 3 09:45:30 Osteoarthr itis of right knee joint 0125989813458 00 Active 2022 Jhony Jimenez MD [address], [place], [address] , [place] [facility] 3 09:45:32 Pain of left knee joint 7622794382827 07 Active 2024 Jhony Jimenez MD [address], [place], [address] , [place] [facility], [facility] 5 14:10:43 Problem Notes None recorded. Procedures Surgical History Date Name Laterality Status Provider Name and Address Organization Details Recorded Time cholecystectomy completed [facility] 01/27/2025 14:07:08 appendectomy completed [facility], [facility] 01/27/2025 14:07:19 tonsillectomy completed [facility], [facility] 01/27/2025 14:07:25 Imaging Results None recorded. Procedure Notes None recorded. Medical Equipment None Reported. Allergies Allergen ID Allergen Name Allergen Category Reaction Reaction Severity Criticality Documentation Date Start Date Code Code System Note Provider Name and Address Organization Details Recorded Time 555 acetamino phen / oxycodone medicatio n Not available Not available Not available 12/11/2022 78575 3 RxNorm Christine newman, [facility], P 3 15:45:23 22547 acetamino phen / oxycodone medicatio n Not available Not available Not available 06/16/20252012 59687 3 RxNorm React ion: Nause a And [...] Updated DateTime 01/27/2025 160.02 cm 27.6 kg/m2 [address]29.[address] [place] [facility], 01/27/2025 14:06:19 Date Recorded Body height Body mass index (BMI) Body weight Provider Name and Address Organization Details Last Updated DateTime 03/16/2025 160.02 cm 27.5 kg/m2 [address]657.[address] [place] [facility], P 03/16/2025 13:12:22 Date Recorded Body height Body mass index (BMI) Body weight Provider Name and Address Organization Details Last Updated DateTime 03/26/2023 160.02 cm 27.5 kg/m2 [address] [place] [facility], [facility] 03/26/2023 09:04:15 Date Recorded Body height Body mass index (BMI) Body weight Provider Name and Address Organization Details Last Updated DateTime 05/22/2023 160.02 cm 27.5 kg/m2 [address]69.[address] [place] [facility], [facility] 05/22/2023 16:26:10 Social History None recorded. Functional Status Question Answer Note LastModified by Organizat ion Details LastModified Time Do you use any illicit or recreational drugs? No Information not available 12/11/2022 Do you or have you ever used any other forms of tobacco or nicotine? No [email or web address] Information not available 12/11/2022 What is your level of alcohol consumption? Occasional [email or web address] Information not available 12/11/2022 Are you currently employed? 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 Family History Relationship Description Onset Age of this Age Resolved Age Notes LastModified by Organization Details LastModified Time Father Diabetes mellitus [email or web address] Not available 2022 15:46:31 Mother Diabetes mellitus [email or web address] Not available 2022 15:46:35 Mother Heart disease [email or web address] Not available 16:26:03 Medical History Condition Response Anemia Y Asthma Y Reflux/GERD Y Gynecological HistoryNo gynecological history recorded. Obstetrics History GPAL:G 0 P 0 0 0 0 Past Encounters Encounter ID Performer Location Encounter Start Date Encounter Closed Date Diagnosis/Indication Diagnosis SNOMED-CT Code Diagnosis ICD10 Code Diagnosis IMO Codes Diagnosis Note [id number] [place] [address] 12/11/2022 15:24:09 12/11/2022 16:12:06 Contusion of right knee 6587503663 0555438 S80.01XD Sprain of medial collateral ligament of knee 02930293 S83.411D History of reconstruction of anterior cruciate ligament tear 914298908 Z98.8[id number] [address] 02/12/2023 15:05:06 02/12/2023 15:34:39 Sprain of medial collateral ligament of knee 35578690 S83.411D Contusion of right knee 3589835469 4949575 S80.01XD History of reconstruction of anterior cruciate ligament tear 802698252 Z98.890 [id number] MD TANIA [address] [address] 03/26/2023 09:01:45 03/26/2023 09:30:09 Contusion of right knee 8420383450 0055780 S80.01XD Sprain of medial collateral ligament of knee 65218018 S83.411D History of reconstruction of anterior cruciate ligament tear 643627675 Z98.890 Osteoarthr itis of right knee joint 4666899573 07058 M17.11 Pes anseri nus bursitis of right knee 9204574829 300855 M70.51 [id number] [address] [place] [address] 05/22/2023 16:21:35 05/22/2023 16:39:39 History of reconstruction of anterior cruciate ligament tear 987986947 Z98.890 Contusion of right knee 9240043241 3075159 S80.01XD Sprain of medial collateral ligament of knee 63567819 S83.411D Osteoarthr itis of right knee joint 1422440851 94534 M17.11 [id number] MD FABI Bingham [address] [place] [address] 01/27/2025 13:58:30 01/27/2025 14:25:49 History of reconstruction of anterior cruciate ligament tear 398354757 Z98.890 right Osteoarthr itis of right knee joint 6891256817 68315 M17.11 Pain of le ft knee joint 7214810751 05176 M25.562 [id number] JODIE CASPER PA-C [address] [place] [address] 02/19/2025 14:50:49 02/19/2025 15:38:37 Pain of left knee joint 0222454829 19428 M25.562 314162 History of reconstruction of anterior cruciate ligament tear 740808388 Z98.890 right Osteoarthr itis of right knee joint 8676351788 16519 M17.11 [id number] Jhony Jimenez MD [facility] [address] [facility] [address] [place] [address] 03/16/2025 13:04:33 03/16/2025 13:31:49 Pain of left knee joint 3116293806 94575 M25.562 106207 History of reconstruction of anterior cruciate ligament tear 286069883 Z98.890 right Osteoarthr itis of right knee joint 0700680038 00663 M17.11 Health Concerns Section Related Observation LastModified [...] pain to the hip or ankle. 07/13/2022 ([facility]): Right knee PMM, chondroplasty notch. Intact ALCR [...] Jhony Jimenez MD [address], [place], [address], [place] [facility], [facility] 03/26/2023 09:45:45 05/22/2023 text/html ROS as noted in the HPI Carmella presents the office today to follow-up on her ongoing right knee pain. She reports she feels improved since her last visit. Her pain is down to a 3/10 on average. Well controlled with uoxi-tkt-qrmgozq anti-inflammatories and icing as needed. She has been walking at least once daily with minimal difficulty. Denies any significant swelling. Previous feelings of instability are much less frequent. She decided not to do physical therapy nor use the medial channel opener brace. She is going to try a [...] JODIE CASPER PA-C [address], [place], [address], [place] [facility], [facility] 05/22/2023 17:07:40 01/27/2025 text/html ROS as [...] of acid reflux. 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 PRIOR SURYA 05/22/23:Carmella presents the office today to follow-up on her ongoing right knee pain. She reports she feels improved since her last visit. Her pain is down to a 3/10 on average. Well controlled with cnfh-izn-ctmakvt anti-inflammatories and icing as needed. She has been walking at least once daily with minimal difficulty. Denies any significant swelling. Previous feelings of instability are much less frequent. She decided not to do physical therapy nor use the medial channel opener brace. She is going to try a [...] Jhony Jimenez MD [address], [place], [address], [place] [facility], [facility] 02/07/2025 09:35:48 02/19/2025 text/html ROS as [...] of acid reflux. 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 PRIOR SURYA 05/22/23:Carmella presents the office today to follow-up on her ongoing right knee pain. She reports she feels improved since her last visit. Her pain is down to a 3/10 on average. Well controlled with akuh-paf-myznydi anti-inflammatories and icing as needed. She has been walking at least once daily with minimal difficulty. Denies any significant swelling. Previous feelings of instability are much less frequent. She decided not to do physical therapy nor use the medial channel opener brace. She is going to try a [...] JODIE CASPER PA-C [address], [place], [address], [place] [facility], [facility] 02/24/2025 07:41:37 03/16/2025 text/html ROS as [...] of acid reflux. 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 She reports she feels improved since her last visit. Her pain is down to a 3/10 on average. Well controlled with szom-qlv-qadbohj anti-inflammatories and icing as needed. She has been walking at least once daily with minimal difficulty. Denies any significant swelling. Previous feelings of instability are much less frequent. She decided not to do physical therapy nor use the medial channel opener brace. She is going to try a [...] Jhony Jimenez MD [address], [place], [address], [place] [facility] 03/16/2025 14:25:39 OBGyn Episode No OBEpisode recorded.
== END 2025-09-03 14:41 | disposition home or self-care (01) ==
LOC: HO.HUSH 14:02
PROVIDERS: PCP Pediatrics; Visit Provider Urology
DX: Z13.9 Encounter for screening, unspecified (principal)